=== PATIENT | male | born 1955 | race Caucasian/White ===

== ENCOUNTER 2017-01-20 09:00 | Outpatient (CLI) | payer BC ==
[~2017-01-20] VITALS: Ht 177.8 cm; Wt 85.7 kg
[~2017-01-20 09:00] MED LIST: AMOX-355 PO; BENA10TA2 PO; BNZ10T PO; DULO60CA58 PO; DULO60CA6 PO; GBPN300C; HYDR-34 PO; INSASP10V SQ; INSU100I10; INSU100I10 SQ; INSU100I14 SQ; INSU100V6 SQ; METF-380; METF-472 PO; METF500T8 PO; MUPI22OI TP; OXYC-109 PO; QUET150T PO; ROSU5TAB PO; TMSL.4C PO; TRZ100T
[2017-01-21] MEDS ORDERED: INSU300I SQ (10:21)
== END 2017-01-20 09:34 ==
LOC: PREOP 09:00
PROVIDERS: ATTEND Surgery
DX: Z01.818 Encounter for other preprocedural examination (principal); K92.1 Melena

== ENCOUNTER 2017-01-21 08:50 | Day surgery (SDC) | payer BC ==
[~2017-01-21] VITALS: Ht 177.8 cm; Wt 85.7 kg
[2017-01-21] MEDS ORDERED: NS IV 1000 ML 1,000 ML IV STA (09:00)
[2017-01-21] MEDS ORDERED: NALOXONE 0.4 MG/ML 1 ML (NARCAN) VIAL IVP PRN (09:00)
[2017-01-21] MEDS ORDERED: fentaNYL INJECTION 100 MCG/2 ML AMP IVP PRN (09:00)
[2017-01-21] MEDS ORDERED: FLUMAZENIL (ROMAZICON) 0.1 MG/ML 5 ML VIAL INJ PRN (09:00)
[2017-01-21] MEDS ORDERED: MIDAZOLAM 2 MG/2 ML (VERSED) VIAL IVP PRN (09:00)
[2017-01-21] MEDS ORDERED: NS IV 1000 ML 1,000 ML ONE (09:14)
[2017-01-21 10:00] VITALS: BP 130/93
[2017-01-21] MEDS ORDERED: INSU300I SQ (10:21)
[2017-01-21] MEDS ORDERED: MIDAZOLAM 2 MG/2 ML (VERSED) VIAL ONE (10:39)
[2017-01-21] MEDS ORDERED: proPOfol 200 MG/20 ML (DIPRIVAN) VIAL IV ONE (10:39)
--- NOTE | 2017-01-21 10:53 | Progress Note-Pre Operative ---
Pre-Operative Progress Note H&P Reviewed The H&P was reviewed, patient examined and no changes noted. Date H&P Reviewed: Jan 21, 2017 Time H&P Reviewed: 10:52 Pre-Operative Diagnosis: bloody stools, history of polyps ROSA KUMAR DO Jan 21, 2017 10:53 am
--- NOTE | 2017-01-21 11:20 | Discharge Inst-Simple/Standard ---
Discharge Inst-Standard Discharge Medications New, Converted or Re-Newed RX: Transmitted to Pharmacy Patient Instructions/Follow Up Plan of Care/Instructions/FU: Follow up with Dr. Leary in 3 weeks Apply diatizem Cream to anal area 3 x a day and after each bowel movement. dried yeast supervisor from [facility] tomorrow. Activity as Tolerated: Yes Discharge Diet: No Restrictions LENORA FARRIS APRN Jan 21, 2017 11:20
[2017-01-21 11:40] VITALS: BP 146/82
[2017-01-21 12:10] VITALS: BP 131/72
[2017-01-21 12:30] VITALS: BP 131/72
--- NOTE | 2017-01-21 12:45 | Progress Note-Post Operative ---
Post-Operative Progess Note Surgeon (s)/Home Care Manager Rn (s) Surgeon ROSA KUMAR DO Home Care Manager Rn: o Pre-Operative Diagnosis bloody stools, history of polyps Post-Operative Diagnosis anterior anal fissure Post-Op Procedure Note Date of Procedure: Jan 21, 2017 Name of Procedure Performed: colonoscopy Description of the Procedure: see note Findings of the Procedure see note Anesthesia Type per mda Estimated blood loss (mL): none Specimen(s) collected/removed none ROSA KUMAR DO Jan 21, 2017 12:45 pm
--- NOTE | 2017-01-22 10:33 | PROCEDURE REPORT ---
PROCEDURE PHYSICIAN: ROSA LEARY DATE OF PROCEDURE: 01/21/2017 PREOPERATIVE DIAGNOSES: 1. Bright red blood per rectum. 2. History of colon polyps. POSTOPERATIVE DIAGNOSIS: Anterior anal fissure. PROCEDURE: Colonoscopy. SURGEON: Dr. Leary. ANESTHESIA: Per MDA. ESTIMATED BLOOD LOSS: None. COMPLICATIONS: None. INDICATIONS: The patient is a 61-year-old male who presents with rectal bleeding. It is bright red in nature. He has history of colon polyps. He understands the risks and benefits of colonoscopy and wished to proceed. Consent was signed on the chart. PROCEDURE: The patient was taken to the endoscopy suite, placed in left lateral recumbent position. Timeout was performed. In the anterior position of the anus, a small but somewhat deep anterior anal fissure is present. No palpable polyps, masses were present. The scope was inserted in the rectum and advanced all way cecum with minimal difficulty. Prep was adequate with irrigation and suction. There were no polyps, masses or ulcers in the cecum, ascending, transverse, descending and sigmoid colon. The scope was continued be retracted back into the rectum where it was also retroflexed noting no other pathology. The scope was returned to its normal position slowly withdrawn until completely removed. The patient tolerated the procedure well without any complications and taken to the recovery room in stable condition. RECOMMENDATIONS: The patient will be started on diltiazem cream. He should be on stool softener and increased water intake and high-fiber diet. The patient will return to clinic in 3 weeks to discuss his symptoms and see how he is doing for reexamination. Job ID: [id number] Dictated Date: 01/21/2017 14:02:11 Furnace Hand Date: 01/22/2017 10:29:56 / anthony
--- OUTSIDE RECORDS SUMMARY | 2017-02-23 13:29 | XMS REPORT | Clinical Summary ---
Author Author User, [place] Organization [facility] Address Unknown Phone Unavailable Allergies, Adverse Reactions, Alerts Allergy Name Reaction Description Start Date Severity Status Provider EFFEXAMBER chapa Critical Active Sarah Tidwell Conditions or Problems Problem Name Problem Code Onset Date Status Entry Date Provider Comment Standard Description Annotate HYPERGLYCEMIA 790.6 Refinement Sarah Tidwell Other abnormal blood chemistry DIABETES MELLITUS, TYPE II, UNCONTROLLED, W/O COMPLICATIONS 250.02 Active Sarah Tidwell Diabetes mellitus without mention of complication, type II or unspecified type, uncontrolled ELEVATED BLOOD PRESSURE WITHOUT DIAGNOSIS OF HYPERTENSION 796.2 Resolved Sarah Tidwell Elevated blood pressure reading without diagnosis of hypertension POLYDIPSIA 783.5 Resolved Sarah Tidwell Polydipsia POLYURIA 788.42 Resolved Sarah Tidwell Polyuria NEPHROLITHIASIS 592.9 Active Sarah Tidwell Urinary calculus, unspecified BLURRED VISION 368.8 Resolved Sarah Tidwell Other specified visual disturbances COLONIC POLYPS, HX OF V12.72 Active Sarah Tidwell Personal history of colonic polyps SINUS CONGESTION 478.1 Resolved Sarah Tidwell Other diseases of nasal cavity and sinuses SINUSITIS, ACUTE 461.9 Resolved Sarah Tidwell Acute sinusitis, unspecified WEIGHT GAIN, ABNORMAL 783.1 Resolved Sarah Tidwell Abnormal weight gain INSOMNIA, CHRONIC 780.52 Active Sarah Tidwell Insomnia, unspecified FOLLICULITIS 704.8 Resolved Sarah Tidwell Other specified diseases of hair and hair follicles HYPERTRIGLYCERIDEMIA 272.1 Active Sarah Tidwell Pure hyperglyceridemia DISORDER, TONGUE NOS 529.9 Resolved Sarah Tidwell Unspecified condition of the tongue left tip of tongue FOLLICULITIS, CHRONIC 704.8 Resolved Sarah Tidwell Other specified diseases of hair and hair follicles neck RHINITIS 472.0 Resolved Sarah Tidwell Chronic rhinitis SINUSITIS, SPHENOIDAL, ACUTE 461.3 Resolved Sarah Tidwell Acute sphenoidal sinusitis HYPERTENSION 401.1 Active Sarah Tidwell Benign essential hypertension HYPERCHOLESTEROLEMIA 272.0 Active Sarah Tidwell Pure hypercholesterolemia 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 Active Sarah Tidwell Other testicular hypofunction NEUROPATHY, 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 Sarah Tidwell Unspecified idiopathic peripheral neuropathy UNSPECIFIED VITAMIN D DEFICIENCY 268.9 Active Sarah Tidwell Unspecified vitamin D deficiency RENAL INSUFFICIENCY 593.9 Active Sarah Tidwell Unspecified disorder of kidney and ureter BIPOLAR DISORDER UNSPECIFIED 296.80 Resolved Sarah Tidwell Bipolar disorder, unspecified HEALTH SCREENING V70.0 Resolved Sarah Tidwell Routine general medical examination at a health care facility BIPLR I D/O MOST RECENT EPIS MIX FULL REMISSION 296.66 Active Sarah Tidwell Bipolar I disorder, most recent episode ( or current) mixed, in full remission INGUINAL LYMPHADENOPATHY, LEFT 785.6 Resolved Sarah Tidwell Enlargement of lymph nodes OTHER SPECIFIED DISEASE OF HAIR&HAIR FOLLICLES 704.8 Resolved Sarah Tidwell Other specified diseases of hair and hair follicles Medication List Medication Instructions Start Date Stop Date Generic Name NDC Status Provider Patient Instruction NOVOLOG FLEXPEN 100 UNIT/ML SOPN 22 UNITS BEFORE MEALS INSULIN ASPART 69485099210 Active Yuliana Ag FLUTICASONE PROPIONATE 50 MCG/ACT SUSP 2 puffs each nostril daily FLUTICASONE PROPIONATE 11818033569 Active Sarah Tidwell HUMALOG KWIKPEN 100 UNIT/ML SOPN 22 units before meals INSULIN LISPRO (HUMAN) 80415186638 No Longer Active Sarah Tidwell LANTUS SOLOSTAR 100 UNIT/ML SOLN 60 units Injection every night INSULIN GLARGINE 10701537335 Active Yuliana Ag RETIN-A 0.01 % GEL Apply to affected area lower scalp every other day until resolved TRETINOIN 52938283697 No Longer Active Sarah Tidwell VITAMIN D3 5000 UNIT TABS 1 PO daily CHOLECALCIFEROL 56036705582 Active Sarah Tidwell BYDUREON 2 MG SUSR 1 injection once a week EXENATIDE 82344152804 Active Sarah Tidwell ANDRODERM 4 MG/24HR PT24 apply once daily TESTOSTERONE 88810647392 Active Breonna Squires REQUIP 1 MG TABS 1 po at HS ROPINIROLE HCL 61540159416 No Longer Active Sarah Tidwell ALPRAZOLAM 0.25 MG TABS 1 po q 4-6 hrs prn ALPRAZOLAM 41501876622 No Longer Active Sarah Tidwell GABAPENTIN 300 MG CAPS 1 in morning, 1 at lunch, and 5 PO QHS GABAPENTIN 16042004858 Active Sarah Tidwell FISH OIL 1000 MG CAPS 2 po daily OMEGA-3 FATTY ACIDS 36263351650 Active Sarah Tanesha Tidwell SEROQUEL XR 150 MG [id number] 1-2 tabs po at 5pm QUETIAPINE FUMARATE 48698448603 Active Sarah Tanesha Tidwell TRAZODONE HCL 100 MG TABS 1 PO QHS TRAZODONE HCL 60240801351 No Longer Active Sarah Tanesha Tidwell CYMBALTA 60 MG CPEP 2 PO daily DULOXETINE HCL 49607586839 Active Sarahmilana Tidwell RESTORIL 15 MG CAP 1 PO QHS prn TEMAZEPAM 42774667784 No Longer Active Sarahmilana Tidwell CYMBALTA 30 MG CPEP 1 PO daily for 1 week then change to 60mg tablet once daily DULOXETINE HCL 44181274212 No Longer Active Sarah Tidwell MULTIVITAMINS TABS 1 PO QD MULTIPLE VITAMIN 87083893327 Active Sarahmilana Tidwell ZOLOFT 100 MG TABS 1 PO daily SERTRALINE HCL 36331689060 No Longer Active Sarah Tidwell LOTENSIN 10 MG TAB 1 PO daily BENAZEPRIL HCL 56914100437 Active Sarah Tidwell EFFEXOR XR 75 MG CP24 1 PO daily VENLAFAXINE HCL 73165059025 No Longer Active Sarah Tidwell PEN NEEDLES 03/04" 31G X 8 MM MISC as directed with injection twice daily. DX: Diabetes INSULIN PEN NEEDLE 19955597280 Active Sarahmilana Tidwell AUGMENTIN 500-125 MG TAB 1 PO BID AMOXICILLIN-POT CLAVULANATE 85742044543 No Longer Active Sarah SIMS'S NASAL SPRAY (DEXAMETHASONE, GENTAMICIN, SALINE) 2 puffs each nostril TID for [address] WILLS NASAL SPRAY ( DEXAMETHASONE, GENTAMICIN, SALINE) No Longer Active Sarah Tidwell ALPRAZOLAM 0.5 MG TABS 1 PO QHS ALPRAZOLAM 97420430364 No Longer Active Sarah Tanesha Tidwell AMBIEN CR 12.5 MG TBCR 1 po q HS ZOLPIDEM TARTRATE 45385791580 No Longer Active Sarahmilana Tidwell BYETTA 10 MCG PEN 10 MCG/0.04ML SOLN 1 injection BID EXENATIDE 21969770703 No Longer Active Sarahmilana Tidwell ONETOUCH ULTRA TEST STRP Check BS TID DX: DIABETES GLUCOSE BLOOD 27709588544 Active Nicole Arias EFFEXOR XR 37.5 MG CP24 1 PO daily for 7 days VENLAFAXINE HCL 01471259971 No Longer Active Sarah Tidwell ZOLOFT 100 MG TABS 1 PO daily SERTRALINE HCL 08168284557 No Longer Active Sarah Tidwell OMACOR 1 GM CAPS 3 PO daily for high triglycerides UVONF-7-RNIO ETHYL ESTERS 67896668578 No Longer Active Sarah Tidwell AMARYL 4 MG TABS 1 PO daily GLIMEPIRIDE 55278360297 No Longer Active Sarah WILLS NASAL SPRAY (DEXAMETHASONE, GENTAMICIN, SALINE) 2 puffs each nostril TID for [address] WILLS NASAL SPRAY ( DEXAMETHASONE, GENTAMICIN, SALINE) No Longer Active Sarah Tidwell AUGMENTIN 875-125 MG TAB 1 PO BID AMOXICILLIN-POT CLAVULANATE 65048927864 No Longer Active Sarah Tidwell AVANDIA 2 MG TABS 1 PO QD for diabetes ROSIGLITAZONE MALEATE 47680326572 No Longer Active Sarah Tidwell MIRA 180 MG TABS 1 PO QD for allergies FEXOFENADINE HCL Active Sarahmilana Tidwell LUNESTA 3 MG TABS 1 po prn ESZOPICLONE 03709164078 No Longer Active Yuliana Ag GLUCOPHAGE XR 500 MG TB24 2 po daily METFORMIN HCL 63883895102 Active Sarah Tidwell CRESTOR 5 MG TABS 1 PO daily for cholesterol ROSUVASTATIN CALCIUM 03724263569 Active Sarah Tidwell LUNESTA 2 MG 1 po QHS LUNESTA 2 MG No Longer Active Sarahmilana Tidwell CORTISPORIN 0.5-0.5-47604 CREA apply to back of neck BID for 7d [id number] 55553374441 No Longer Active Sarah Tidwell KEFLEX 500 MG CAP 1 Po QID for 7 days CEPHALEXIN 87905103131 No Longer Active Sarah Tidwell KEFLEX 500 MG CAPS 1 PO QID CEPHALEXIN 41535603366 No Longer Active Sarah Tidwell CORTISPORIN 0.5-0.5-35074 CREA Apply to affected area posterior neck TID 2004 [id number] 64353484647 No Longer Active Sarah Tidwell AMOXIL 500 MG TABS BID for 7 days AMOXICILLIN 55867779231 No Longer Active Sarah Tidwell ASPIRIN 81 MG CHEW TAB 1 PO QD ASPIRIN 81704568069 Active Sarah Tidwell ZYRTEC-D 5-120 MG TB12 1 po q 12 hrs. CETIRIZINE- PSEUDOEPHEDRINE 14262357841 No Longer Active Sarah Tidwell Immunizations Vaccine Administration Date Value Standard Description Influenza vaccine given Done influenza virus vaccine, unspecified formulation Influenza vaccine given done influenza virus vaccine, unspecified formulation Vital Signs Date Name Value Unit Range Description blood pressure, diastolic - 8462-4 75 mm[Hg] BP nuñez blood pressure, systolic - 8480-6 130 mm[Hg] BP sys pulse rate E&M - 8867-4 66 /min Heart rate respiratory rate E&M - 9279-1 14 /min Resp rate weight E&M - 3141-9 195 [lb_av] Weight Measured blood pressure, diastolic - 8462-4 80 mm[Hg] BP nuñez blood pressure, systolic - 8480-6 130 mm[Hg] BP sys pulse rate E&M - 8867-4 78 /min Heart rate respiratory rate E&M - 9279-1 14 /min Resp rate weight E&M - 3141-9 191 [lb_av] Weight Measured blood pressure, diastolic - 8462-4 65 mm[Hg] BP nuñez blood pressure, systolic - 8480-6 130 mm[Hg] BP sys pulse rate E&M - 8867-4 60 /min Heart rate respiratory rate E&M - 9279-1 14 /min Resp rate weight E&M - 3141-9 190 [lb_av] Weight Measured Diagnostic Results Date Name Value Unit Range Description Clinical Lists Update: CBC,CMP,FLP,TSH,HGA1C,MICROALBUMIN - Chemistry Estimated Glomerular Filtration Rate (calc) 80 mL/min/1.73m2 glucose, plasma fasting 210 mg/dL albumin, serum 4.0 g/dL alkaline phosphatase, serum 72 U/L urea nitrogen, blood 17 mg/dL calcium, serum 9.1 mg/dL chloride, serum 103 mmol/L cholesterol, serum 135 mg/dL cholesterol/HDL ratio, serum, percent 4.4 anion gap, serum 9 sodium, serum 134 mmol/L triglyceride, serum, fasting 158 mg/dL bilirubin, serum, total 0.5 mg/dL alanine aminotransferase (SGPT), serum 34 U/L aspartate aminotransferase (SGOT), serum 19 U/L protein, total, serum 6.2 g/dL potassium, serum 4.7 mmol/L LDL cholesterol, serum 72 mg/dL thyroid stimulating hormone, serum 1.67 u[iU]/mL hemoglobin A1C, blood, as % of total hemoglobin 9.3 % HDL cholesterol, serum 31.0 mg/dL creatinine, serum 1.0 mg/dL carbon dioxide, venous blood 27.0 mmol/L Clinical Lists Update: CBC,CMP,FLP,TSH,HGA1C,MICROALBUMIN - Hematology leukocyte count, blood 6.9 10*3/mm3 mean corpuscular volume, RBC 92 fL red blood cell distribution width 12.1 % hemoglobin, blood 14.2 g/dL platelet count 171 10*3/mm3 erythrocyte (RBC) count 4.56 10*6/mm3 hematocrit, blood 41.9 % Clinical Lists Update: CBC,CMP,FLP,TSH,HGA1C,MICROALBUMIN - Urinalysis microalbumin, urine, semiquantitative 0.3 mg/dL Clinical Lists Update: CMP,Chol,Trig,HgA1c - Chemistry alkaline phosphatase, serum 78 U/L albumin, serum 4.1 g/dL calcium, serum 9.4 mg/dL chloride, serum 104 mmol/L cholesterol, serum 109 mg/dL carbon dioxide, venous blood 30.0 mmol/L creatinine, serum 1.4 mg/dL hemoglobin A1C, blood, as % of total hemoglobin 8.6 % potassium, serum 4.4 mmol/L protein, total, serum 6.5 g/dL aspartate aminotransferase (SGOT), serum 19 U/L alanine aminotransferase (SGPT), serum 33 U/L bilirubin, serum, total 0.7 mg/dL triglyceride, serum, fasting 173 mg/dL sodium, serum 137 mmol/L anion gap, serum 7 glucose, plasma fasting 147 mg/dL Estimated Glomerular Filtration Rate (calc) 55 mL/min/1.73m2 urea nitrogen, blood 17 mg/dL Clinical Lists Update: CMP,FLP,HgA1c - Chemistry alkaline phosphatase, serum 75 U/L albumin, serum 4.2 g/dL urea nitrogen, blood 16 mg/dL calcium, serum 9.7 mg/dL chloride, serum 101 mmol/L cholesterol, serum 136 mg/dL carbon dioxide, venous blood 31.0 mmol/L creatinine, serum 1.3 mg/dL HDL cholesterol, serum 30.0 mg/dL hemoglobin A1C, blood, as % of total hemoglobin 9.3 % LDL cholesterol, serum 78 mg/dL potassium, serum 4.7 mmol/L protein, total, serum 6.6 g/dL aspartate aminotransferase (SGOT), serum 29 U/L alanine aminotransferase (SGPT), serum 60 U/L bilirubin, serum, total 0.7 mg/dL triglyceride, serum, fasting 141 mg/dL sodium, serum 133 mmol/L anion gap, serum 6 cholesterol/HDL ratio, serum, percent 4.5 Estimated Glomerular Filtration Rate (calc) 63 mL/min/1.73m2 glucose, plasma fasting 121 mg/dL Encounters Code Encounter Date Provider Facility CPT-36799 Ofc Vst, Est Level IV 17:08:31 CDT Sarah Tanesha Tidwell Sarah S Tidwell, DO, FACP CPT-16109 Ofc Vst, Est Level IV 20:26:15 CDT Sarahmilana Wiseman Tidwell, DO, FACP CPT-63015 Ofc Vst, Est Level IV 12:57:00 CDT Sarah Wiseman Tidwell, DO, FACP CPT-36710 Ofc Vst, Est Level IV 16:50:31 CDT Sarahmilana [facility] CPT-18359 Ofc Vst, Est Level III 16:42:31 SHOES SALESPERSON Sarah Wiseman Diann, DO, FACP CPT-86371 Ofc Vst, Est Level IV 21:22:46 SHOES SALESPERSON Sarah Wiseman Diann, DO, FACP CPT-50153 Ofc Vst, Est Level III 21:17:37 CDT Sarah Tanesha Wiseman Diann, DO, FACP CPT-30714 Ofc Vst, Est Level III 13:46:44 CDT Sarahmilana Wiseman Diann, DO, FACP CPT-25357 Ofc Vst, Est Level III 15:31:19 CDT Sarah Wiseman Tidwell, DO, FACP CPT-35277 Ofc Vst, Est Level III 15:42:13 SHOES SALESPERSON Sarah Wiseman Tidwell, DO, FACP CPT-93382 Ofc Vst, Est Level IV 11:22:49 CDT Sarah Wiseman Tidwell, DO, FACP CPT-22257 Ofc Vst, Est Level IV 11:33:36 CDT Sarah Wiseman Tidwell, DO, FACP CPT-58376 Ofc Vst, Est Level IV 11:19:42 SHOES SALESPERSON Sarah Wiseman Diann, DO, FACP CPT-99806 Ofc Vst, Est Level IV 10:56:54 CDT Sarahmilana Wiseman Tidwell, DO, FACP CPT-04099 Ofc Vst, Est Level IV 10:26:50 CDT Sarah Tanesha Wiseman Tidwell, DO, FACP CPT-84218 Ofc Vst, Est Level IV 09:48:46 SHOES SALESPERSON Sarah Tanesha Wiseman Tidwell, DO, FACP CPT-71958 Ofc Vst, Est Level IV 10:10:00 SHOES SALESPERSON Sarahmilana Smith S Tidwell, DO, FACP CPT-46248 Ofc Vst, Est Level IV 09:52:11 CDT Sarah Tanesha Smith S Tidwell, DO, FACP CPT-08877 Ofc Vst, Est Level IV 09:34:58 CDT Sarah Tanesha Wiseman Diann, DO, FACP CPT-66535 Ofc Vst, Est Level III 17:03:52 SHOES SALESPERSON Sarah Wiseman Tidwell, DO, FACP CPT-93092 Ofc Vst, Est Level IV 09:28:00 SHOES SALESPERSON Sarah Smith S Tidwell, DO, FACP CPT-09780 Ofc Vst, Est Level V 11:08:12 CDT Sarahmilana Wiseman Diann, DO, FACP CPT-95686 Ofc Vst, Est Level IV 12:44:14 CDT Sarah Tanesha Wiseman Tidwell, DO, FACP CPT-34145 Ofc Vst, Est Level IV 09:43:11 CDT Sarah Tanesha Smith S Tidwell, DO, FACP CPT-37408 Ofc Vst, Est Level III 10:32:15 CDT Sarah Tanesha Smith S Tidwell, DO, FACP CPT-11192 Ofc Vst, Est Level IV 14:52:57 CDT Sarah Wiseman Tidwell, DO, FACP CPT-51727 Ofc Vst, Est Level IV 12:04:03 CDT Sarah Wiseman Tidwell, DO, FACP CPT-16700 Ofc Vst, Est Level V 11:59:56 CDT Sarah Tanesha Wiseman Tidwell, DO, FACP CPT-72969 Ofc Vst, Est Level IV 17:11:53 CDT Sarah Tanesha Wiseman Tidwell, DO, FACP CPT-83735 Ofc Vst, Est Level IV 16:57:36 SHOES SALESPERSON Sarah Wiseman Tidwell, DO, FACP CPT-65469 Ofc Vst, Est Level V 11:17:45 SHOES SALESPERSON Sarah Wiseman Tidwell, DO, FACP CPT-49257 Ofc Vst, Est Level IV 09:27:52 SHOES SALESPERSON Sarah Wiseman Tidwell, DO, FACP CPT-83670 Ofc Vst, Est Level IV 11:10:52 CDT Sarah Wiseman Tidwell, DO, FACP CPT-46366 Ofc Vst, Est Level IV 15:46:30 CDT Sarah Wiseman Tidwell, DO, FACP CPT-46415 Ofc Vst, Est Level IV 16:18:20 CDT Sarah Tanesha Wiseman Tidwell, DO, FACP CPT-82743 Ofc Vst, Est Level V 17:06:31 SHOES SALESPERSON Sarah Wiseman Tidwell, DO, FACP CPT-60711 Ofc Vst, Est Level IV 17:58:03 CDT Sarahmilana Wiseman Tidwell, DO, FACP CPT-58011 Ofc Vst, Est Level IV 09:25:46 CDT Sarahmilana Tidwell [facility] CPT-17931 Ofc Vst, Est Level IV 13:54:17 SHOES SALESPERSON Sarah Tidwell [facility] CPT-69590 Ofc Vst, Est Level III 19:28:13 SHOES SALESPERSON Sarah Tidwell [facility] CPT-40474 Ofc Vst, Est Level IV 15:50:57 SHOES SALESPERSON Sarah Tidwell [facility] CPT-24321 Ofc Vst, Est Level IV 13:51:16 SHOES SALESPERSON Sarah Tidwell [facility] CPT-50737 Ofc Vst, Est Level IV 09:58:27 CDT Sarah Tanesha Tidwell [facility] CPT-23191 Ofc Vst, Est Level IV 09:33:18 SHOES SALESPERSON Sarah Tidwell [facility] CPT-98202 Ofc Vst, Est Level III 09:35:19 SHOES SALESPERSON Sarah Tidwell [facility] CPT-22180 Ofc Vst, Est Level IV 09:54:59 SHOES SALESPERSON Sarah Tidwell [facility] CPT-43862 Ofc Vst, Est Level IV 09:41:01 CDT Sarahmilana Tidwell [facility] CPT-47231 Ofc Vst, Est Level II 09:54:39 CDT Sarah Tidwell [facility] CPT-73490 Ofc Vst, Est Level IV 17:42:28 CDT Sarah Tidwell [facility] CPT-52502 Ofc Vst, Est Level III 17:52:28 SHOES SALESPERSON Sarah Tidwell [facility] CPT-04963 Ofc Vst, Est Level III 18:11:29 SHOES SALESPERSON Sarah Tidwell [facility] CPT-52712 Ofc Vst, Est Level IV 18:14:34 CDT Sarah Tidwell [facility] CPT-80946 Ofc Vst, Est Level IV 17:50:40 CDT Sarah Tidwell [facility] CPT-60991 Ofc Vst, Est Level III 12:36:34 CDT Sarah Tidwell [facility] CPT-96705 Ofc Vst, Est Level III 13:13:59 CDT Sarah Tidwell [facility] CPT-83286 Ofc Vst, New Level III 15:18:01 CDT Sarah Tidwell [facility] Procedures Code Procedure Name Date Entry Date Standard Description CPT-94609 Preventive, Est, (40-64) 12:36:08 CDT CPT-85695 Handling of specimen from office to lab 13:51:16 SHOES SALESPERSON
--- OUTSIDE RECORDS SUMMARY | 2017-02-23 13:30 | XMS REPORT | Continuity of Care Document ---
Author Author [facility] Organization [facility] Address Unknown Phone Unavailable Allergies Active Description Code Type Severity Reaction Onset Reported/Identified Relationship to Patient Clinical Status Yes NKANo Known Allergies NKA Miscellaneous Allergy Mild N/A 07/16/2009 Medications Problems Date Dx Coded Attending Type Code Diagnosis Diagnosed By 08/18/2014 ROSA KUMAR DO Ot 250.00 08/18/2014 ROSA KUMAR DO Ot 706.2 07/06/2015 ROSA KUMAR DO Ot 706.2 07/06/2015 ROSA KUMAR DO Ot V72.84 07/06/2015 ROSA KUMAR DO Ot V74.8 07/07/2015 TIM BATISTA DO Ot 041.12 METHICILLIN RESISTANT STAPHYLOCOCCUS AUR 07/07/2015 TIM BATISTA DO Ot 250.00 DIAB CHAPARRO WO COMPL, TYPE II OR UNSPEC TY 07/07/2015 TIM BATISTA DO Ot 272.4 HYPERLIPIDEMIA NEC/NOS 07/07/2015 TIM BATISTA DO Ot 401.9 HYPERTENSION NOS 07/07/2015 LESTER TAM TIM Ot 682.6 CELLULITIS OF LEG 07/07/2015 RYLEE BATISTA DOI Ot 704.8 HAIR DISEASES NEC 07/07/2015 TIM BATISTA DO Ot V58.67 LONG-TERM (CURRENT) USE OF INSULIN 01/21/2017 ROSA KUMAR DO Ot K60.2 ANAL FISSURE, UNSPECIFIED 01/21/2017 ROSA KUMAR DO Ot Z86.010 PERSONAL HISTORY OF COLONIC POLYPS 01/21/2017 ROSA KUMAR DO Ot K92.1 MELENA 01/21/2017 ROSA KUMAR DO Ot Z01.818 ENCOUNTER FOR OTHER PREPROCEDURAL EXAMIN 01/22/2017 ROSA KUMAR DO Ot K60.2 ANAL FISSURE, UNSPECIFIED 01/22/2017 ROSA KUMAR DO Ot Z86.010 PERSONAL HISTORY OF COLONIC POLYPS 01/26/2017 ROSA KUMAR DO Ot K92.1 MELENA 01/26/2017 ROSA KUMAR DO Ot Z01.818 ENCOUNTER FOR OTHER PREPROCEDURAL EXAMIN 01/30/2017 ROSA KUMAR DO Ot K60.2 ANAL FISSURE, UNSPECIFIED 01/30/2017 ROSA KUMAR DO Ot Z86.010 PERSONAL HISTORY OF COLONIC POLYPS Procedures Results Test Result Range Capillary blood glucose measurement by glucometer (mass/volume) - 01/21/17 09: 29 Capillary blood glucose measurement by glucometer (mass/volume) 165 mg/dL 70-110 Encounters ACCT No. Visit Date/Time Discharge Status Pt. Type Provider Facility Loc./Unit Complaint [id number] 01/21/2017 08:50:00 2016 12:30:00 DIS Outpatient ROSA KUMAR DO [facility] ENDO BLOOD IN STOOL [id number] 01/20/2017 09:00:00 2016 09:34:00 DIS Outpatient ROSA KUMAR DO [facility] PREOP BLOOD IN STOOLS [id number] 07/06/2015 15:12:00 2014 13:25:00 DIS Inpatient TIM BATISTA DO [facility] SURGICAL RT LEG CELLULITES MRSA [id number] 08/18/2014 10:30:00 2013 14:20:00 DIS Outpatient ROSA KUMAR DO [facility] SDC [id number] 08/17/2014 09:56:00 2013 23:59:59 CLS Outpatient ROSA KUMAR DO [facility] PREOP
--- OUTSIDE RECORDS SUMMARY | 2017-02-23 13:30 | XMS REPORT | Clinical Summary ---
Author Author moiz winston Organization [facility] [place] [address] Phone Unavailable Allergies, Adverse Reactions, Alerts Allergy Name Reaction Description Start Date Severity Status Provider ALISHA chapa Critical Active Sarah Tidwell Conditions or Problems Problem Name Problem Code Onset Date Status Entry Date Provider Comment Standard Description Annotate DIABETES MELLITUS, TYPE II, UNCONTROLLED, W/O COMPLICATIONS 250.02 Active Sarah Tidwell DIABETES MELLITUS WITHOUT MENTION OF COMPLICATION, TYPE II OR UNSPECIFIED TYPE, UNCONTROLLED NEPHROLITHIASIS 592.9 Active Sarah Tidwell UNSPECIFIED URINARY CALCULUS COLONIC POLYPS, HX OF V12.72 Active Sarah Tidwell PERSONAL HISTORY OF COLONIC POLYPS INSOMNIA, CHRONIC 780.52 Active Sarah Tidwell INSOMNIA, UNSPECIFIED HYPERTRIGLYCERIDEMIA 272.1 Active Sarah Tidwell PURE HYPERGLYCERIDEMIA HYPERTENSION 401.1 Active Sarah Tidwell ESSENTIAL HYPERTENSION, BENIGN HYPERCHOLESTEROLEMIA 272.0 Active Sarah Tidwell PURE HYPERCHOLESTEROLEMIA 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 Active Sarah Tidwell OTHER TESTICULAR HYPOFUNCTION NEUROPATHY, 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 Sarah Tidwell UNSPECIFIED HEREDITARY AND IDIOPATHIC PERIPHERAL NEUROPATHY UNSPECIFIED VITAMIN D DEFICIENCY 268.9 Active Sarah Tidwell RENAL INSUFFICIENCY 593.9 Active Sarah Tidwell 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 296.66 Active Sarah Tidwell BIPOLAR I DISORDER, MOST RECENT EPISODE ( OR CURRENT) MIXED, IN FULL 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 704.8 Active 2013 Sarah Tidwell OTHER SPECIFIED DISEASE OF HAIR AND HAIR FOLLICLES Medication List Medication Instructions Start Date Stop Date Generic Name NDC Status Provider Patient Instruction ASPIRIN 81 MG CHEW TAB 1 PO QD ASPIRIN 37520452804 Active Sarah Tidwell CRESTOR 5 MG TABS 1 PO daily for cholesterol ROSUVASTATIN CALCIUM 97248893910 Active Yuliana Ag GLUCOPHAGE XR 500 MG TB24 2 po daily METFORMIN HCL 18160154858 Active Yuliana Ag MIRA 180 MG TABS 1 PO QD for allergies FEXOFENADINE HCL Active Sarah Tidwell FLONASE 50 MCG/DOSE INHALANT 1 puff each nostril BID FLONASE 50 MCG/DOSE INHALANT 29487843003 Active Sarah Tidwell ONETOUCH ULTRA TEST STRP Check BS TID DX: DIABETES GLUCOSE BLOOD 13668078129 Active Nicole Arias PEN NEEDLES 03/04" 31G X 8 MM MISC as directed with injection twice daily. DX: Diabetes INSULIN PEN NEEDLE 85260932239 Active Yuliana Ag LOTENSIN 10 MG TAB 1 PO daily BENAZEPRIL HCL 94121184423 Active Yuliana Ag MULTIVITAMINS TABS 1 PO QD MULTIPLE VITAMIN 19121053388 Active Sarah Tidwell CYMBALTA 60 MG CPEP 2 PO daily DULOXETINE HCL 27471971442 Active Breonna Squires SEROQUEL XR 150 MG [id number] 1-2 tabs po at 5pm QUETIAPINE FUMARATE 34679329326 Active Yuliana Ag FISH OIL 1000 MG CAPS 2 po daily OMEGA-3 FATTY ACIDS 78560557379 Active Sarah Tidwell GABAPENTIN 300 MG CAPS 1 in morning, 1 at lunch, and 5 PO QHS GABAPENTIN 82373072619 Active Sarah Tanesha Tidwell ANDRODERM 4 MG/24HR PT24 apply once daily TESTOSTERONE 10015874782 Active Breonna TA SOLOSTAR 100 UNIT/ML SOLN 55 units Injection every night INSULIN GLARGINE 52396228157 Active Yuliana Ag BYDUREON 2 MG SUSR 1 injection once a week EXENATIDE 77047005218 Active Sarahmilana Tidwell VITAMIN D3 5000 UNIT TABS 1 PO daily CHOLECALCIFEROL 47224671644 Active Sarah Tanesha Tidwell HUMALOG PEN 100 UNIT/ML SOLN 20 units before all meals INSULIN LISPRO (HUMAN) Active Sarah Tidwell Immunizations Vaccine Administration Date Value Standard Description Influenza vaccine done influenza virus vaccine, unspecified formulation Vital Signs Date Name Value Unit Range Description blood pressure, diastolic 65 mm[Hg] BP nuñez blood pressure, systolic 130 mm[Hg] BP sys pulse rate E&M 60 /min Heart rate respiratory rate E&M 14 /min Resp rate weight E&M 190 [lb_av] Weight Measured blood pressure, diastolic 86 mm[Hg] BP nuñez blood pressure, systolic 130 mm[Hg] BP sys pulse rate E&M 78 /min Heart rate respiratory rate E&M 14 /min Resp rate blood pressure, diastolic 64 mm[Hg] BP nuñez blood pressure, systolic 120 mm[Hg] BP sys pulse rate E&M 66 /min Heart rate respiratory rate E&M 14 /min Resp rate blood pressure, diastolic 66 mm[Hg] BP nuñez blood pressure, systolic 122 mm[Hg] BP sys pulse rate E&M 80 /min Heart rate respiratory rate E&M 14 /min Resp rate Diagnostic Results Date Name Value Unit Range Description Clinical Lists Update: CBC,CMP,FLP,HgA1c - Chemistry Estimated Glomerular Filtration Rate (calc) 68 mL/min/1.73m2 glucose, plasma fasting 173 mg/dL albumin, serum 4.1 g/dL alkaline phosphatase, serum 64 U/L urea nitrogen, blood 18 mg/dL calcium, serum 9.3 mg/dL chloride, serum 107 mmol/L cholesterol, serum 108 mg/dL cholesterol/HDL ratio, serum 4.3 anion gap, serum 8 sodium, serum 139 mmol/L triglyceride, serum, fasting 262 mg/dL bilirubin, serum, total 0.6 mg/dL alanine aminotransferase (SGPT), serum 40 U/L aspartate aminotransferase (SGOT), serum 23 U/L protein, total, serum 6.2 g/dL potassium, serum 3.9 mmol/L LDL cholesterol, serum 31 mg/dL hemoglobin A1C, blood, as % of total hemoglobin 8.3 % HDL cholesterol, serum 25.0 mg/dL creatinine, serum 1.2 mg/dL carbon dioxide, venous blood 28.0 mmol/L Clinical Lists Update: CBC,CMP,FLP,HgA1c - Hematology erythrocyte (RBC) count 5.10 10*6/mm3 leukocyte count, blood 6.8 10*3/mm3 mean corpuscular volume, RBC 94 fL red blood cell distribution width 13.5 % hemoglobin, blood 15.0 g/dL platelet count 193 10*3/mm3 hematocrit, blood 48 % Clinical Lists Update: CMP, Chol, Trigs, HbA1C, TSH, Micro - Chemistry glucose, plasma fasting 159 mg/dL thyroid stimulating hormone, serum 1.22 u[iU]/mL protein, total, serum 6.2 g/dL alkaline phosphatase, serum 65 U/L sodium, serum 140 mmol/L urea nitrogen, blood 18 mg/dL aspartate aminotransferase (SGOT), serum 16 U/L calcium, serum 9.4 mg/dL albumin, serum 4.0 g/dL chloride, serum 105 mmol/L alanine aminotransferase (SGPT), serum 22 U/L cholesterol, serum 112 mg/dL anion gap, serum 8 carbon dioxide, venous blood 31.0 mmol/L bilirubin, serum, total 0.6 mg/dL creatinine, serum 1.0 mg/dL Estimated Glomerular Filtration Rate (calc) 79 mL/min/1.73m2 hemoglobin A1C, blood, as % of total hemoglobin 8.5 % potassium, serum 4.2 mmol/L triglyceride, serum, fasting 165 mg/dL Clinical Lists Update: CMP, Chol, Trigs, HbA1C, TSH, Micro - Urinalysis microalbumin, urine, semiquantitative 0.3 mg/dL Clinical Lists Update: CMP,Chol,Trig,HgA1c - Chemistry albumin, serum 4.1 g/dL alkaline phosphatase, serum 78 U/L urea nitrogen, blood 17 mg/dL calcium, serum 9.4 mg/dL chloride, serum 104 [...] Estimated Glomerular Filtration Rate (calc) 55 mL/min/1.73m2 Clinical Lists Update: CMP,FLP,HgA1c - Chemistry Estimated Glomerular Filtration Rate (calc) 64 mL/min/1.73m2 glucose, plasma fasting 233 mg/dL cholesterol/HDL ratio, serum 4.4 anion gap, serum 10 sodium, serum 136 mmol/L triglyceride, serum, fasting 130 mg/dL bilirubin, serum, total 0.8 mg/dL alanine aminotransferase (SGPT), serum 34 U/L aspartate aminotransferase (SGOT), serum 22 U/L protein, total, serum 6.4 g/dL potassium, serum 4.2 mmol/L LDL cholesterol, serum 62 mg/dL hemoglobin A1C, blood, as % of total hemoglobin 9.0 % HDL cholesterol, serum 26.0 mg/dL creatinine, serum 1.2 mg/dL carbon dioxide, venous blood 28.0 mmol/L cholesterol, serum 114 mg/dL chloride, serum 102 mmol/L calcium, serum 9.1 mg/dL urea nitrogen, blood 15 mg/dL alkaline phosphatase, serum 69 U/L albumin, serum 4.0 g/dL
--- OUTSIDE RECORDS SUMMARY | 2017-02-23 13:31 | XMS REPORT | Clinical Summary ---
Author Author User, Metaset Organization [facility] [place] Address Unknown Phone Unavailable Allergies, Adverse Reactions, [...] Generic Name NDC Status Provider Patient Instruction FLUTICASONE PROPIONATE 50 MCG/ACT SUSP 2 puffs each nostril daily FLUTICASONE PROPIONATE 33726948687 Active Sarah Tidwell HUMALOG KWIKPEN 100 UNIT/ML SOPN 22 units before meals INSULIN LISPRO (HUMAN) 18497852060 Active Sarah Tidwell LANTUS SOLOSTAR 100 UNIT/ML SOLN 60 units Injection every night INSULIN GLARGINE 21955484764 Active Sarah Tidwell RETIN-A 0.01 % GEL Apply to affected area lower scalp every other day until resolved TRETINOIN 71081098496 No Longer Active Sarah Tidwell VITAMIN D3 5000 UNIT TABS 1 PO daily CHOLECALCIFEROL 26939059181 Active Sarah Tidwell BYDUREON 2 MG SUSR 1 injection once a week EXENATIDE 76367837827 Active Sarah Tidwell ANDRODERM 4 MG/24HR PT24 apply once daily TESTOSTERONE 42098443184 Active Breonna Squires REQUIP 1 MG TABS 1 po at HS ROPINIROLE HCL 22207816897 No Longer Active Sarah Tidwell ALPRAZOLAM 0.25 MG TABS 1 po q 4-6 hrs prn ALPRAZOLAM 41060008676 No Longer Active Sarah Tidwell GABAPENTIN 300 MG CAPS 1 in morning, 1 at lunch, and 5 PO QHS GABAPENTIN 38504638149 Active Sarah Tidwell FISH OIL 1000 MG CAPS 2 po daily OMEGA-3 FATTY ACIDS 71570927866 Active Sarah Tidwell SEROQUEL XR 150 MG [id number] 1-2 tabs po at 5pm QUETIAPINE FUMARATE 27523190067 Active Sarah Tidwell TRAZODONE HCL 100 MG TABS 1 PO QHS TRAZODONE HCL 78404594408 No Longer Active Sarah Tidwell CYMBALTA 60 MG CPEP 2 PO daily DULOXETINE HCL 98451708322 Active Yuliana Ag RESTORIL 15 MG CAP 1 PO QHS prn TEMAZEPAM 43057012894 No Longer Active Sarah Tidwell CYMBALTA 30 MG CPEP 1 PO daily for 1 week then change to 60mg tablet once daily DULOXETINE HCL 47993938495 No Longer Active Sarah Tidwell MULTIVITAMINS TABS 1 PO QD MULTIPLE VITAMIN 41777840630 Active Sarah Tidwell ZOLOFT 100 MG TABS 1 PO daily SERTRALINE HCL 98936054967 No Longer Active Sarahmilana Tidwell LOTENSIN 10 MG TAB 1 PO daily BENAZEPRIL HCL 80885889499 Active Yuliana Ag EFFEXOR XR 75 MG CP24 1 PO daily VENLAFAXINE HCL 58987257552 No Longer Active Sarah Tidwell PEN NEEDLES /16" 31G X 8 MM MISC as directed with injection twice daily. DX: Diabetes INSULIN PEN NEEDLE 72749635444 Active Sarah Tidwell AUGMENTIN 500-125 MG TAB 1 PO BID AMOXICILLIN-POT CLAVULANATE 19116886300 No Longer Active Sarah SIMS'S NASAL SPRAY (DEXAMETHASONE, GENTAMICIN, SALINE) 2 puffs each nostril TID for [address] WILLS NASAL SPRAY ( DEXAMETHASONE, GENTAMICIN, SALINE) No Longer Active Sarah Tidwell ALPRAZOLAM 0.5 MG TABS 1 PO QHS ALPRAZOLAM 35868590471 No Longer Active Sarahmilana Tidwell AMBIEN CR 12.5 MG TBCR 1 po q HS ZOLPIDEM TARTRATE 78472953691 No Longer Active Sarah Tidwell BYETTA 10 MCG PEN 10 MCG/0.04ML SOLN 1 injection BID EXENATIDE 49886950424 No Longer Active Sarah Tidwell ONETOUCH ULTRA TEST STRP Check BS TID DX: DIABETES GLUCOSE BLOOD 44276905117 Active Nicole Arias EFFEXOR XR 37.5 MG CP24 1 PO daily for 7 days VENLAFAXINE HCL 20196385476 No Longer Active Sarah Tidwell ZOLOFT 100 MG TABS 1 PO daily SERTRALINE HCL 14173821026 No Longer Active Sarah Tidwell OMACOR 1 GM CAPS 3 PO daily for high triglycerides PFYUX-0-NAJC ETHYL ESTERS 95459308870 No Longer Active Sarah Tidwell AMARYL 4 MG TABS 1 PO daily GLIMEPIRIDE 87729572242 No Longer Active Sarah SIMS'S NASAL SPRAY (DEXAMETHASONE, GENTAMICIN, SALINE) 2 puffs each nostril TID for [address] WILLS NASAL SPRAY ( DEXAMETHASONE, GENTAMICIN, SALINE) No Longer Active Sarah Tidwell AUGMENTIN 875-125 MG TAB 1 PO BID AMOXICILLIN-POT CLAVULANATE 72552872995 No Longer Active Sarah Tidwell AVANDIA 2 MG TABS 1 PO QD for diabetes ROSIGLITAZONE MALEATE 73478954598 No Longer Active Sarah Tidwell MIRA 180 MG TABS 1 PO QD for allergies FEXOFENADINE HCL Active Sarahmilana Tidwell LUNESTA 3 MG TABS 1 po prn ESZOPICLONE 53411841206 No Longer Active Yuliana [place] GLUCOPHAGE XR 500 MG TB24 2 po daily METFORMIN HCL 91421253624 Active Sarah Tidwell CRESTOR 5 MG TABS 1 PO daily for cholesterol ROSUVASTATIN CALCIUM 60117963266 Active Yuliana Ag LUNESTA 2 MG 1 po QHS LUNESTA 2 MG No Longer Active Sarahmilana Tidwell CORTISPORIN 0.5-0.5-99345 CREA apply to back of neck BID for 7d [id number] 86687540604 No Longer Active Sarah Tidwell KEFLEX 500 MG CAP 1 Po QID for 7 days CEPHALEXIN 29411681380 No Longer Active Sarah Tidwell KEFLEX 500 MG CAPS 1 PO QID CEPHALEXIN 42118532742 No Longer Active Sarah Tidwell CORTISPORIN 0.5-0.5-15029 CREA Apply to affected area posterior neck TID 2004 [id number] 95101923766 No Longer Active Sarah Tidwell AMOXIL 500 MG TABS BID for 7 days AMOXICILLIN 77587923617 No Longer Active Sarah Tidwell ASPIRIN 81 MG CHEW TAB 1 PO QD ASPIRIN 87461310743 Active Sarah Tidwell ZYRTEC-D 5-120 MG TB12 1 po q 12 hrs. CETIRIZINE- PSEUDOEPHEDRINE 90120690632 No Longer Active Sarah Tidwell Immunizations Vaccine Administration Date Value Standard Description Influenza vaccine given Done influenza virus vaccine, unspecified formulation Influenza vaccine given done influenza virus vaccine, unspecified formulation Vital Signs Date Name Value Unit Range Description blood pressure, diastolic - 8462-4 80 mm[Hg] [...] E&M - 3141-9 190 [lb_av] Weight Measured blood pressure, diastolic - 8462-4 86 mm[Hg] BP nuñez blood pressure, systolic - 8480-6 130 mm[Hg] BP sys pulse rate E&M - 8867-4 78 /min Heart rate respiratory rate E&M - 9279-1 14 /min Resp rate Diagnostic Results Date Name Value Unit Range Description Clinical Lists Update: CMP, Chol, Trigs, HbA1C, TSH, Micro - Chemistry cholesterol, serum 112 mg/dL carbon dioxide, venous blood 31.0 mmol/L albumin, serum 4.0 g/dL Estimated Glomerular Filtration Rate (calc) 79 mL/min/1.73m2 chloride, serum 105 mmol/L hemoglobin A1C, blood, as % of total hemoglobin 8.5 % thyroid stimulating hormone, serum 1.22 u[iU]/mL sodium, serum 140 mmol/L creatinine, serum 1.0 mg/dL alkaline phosphatase, serum 65 U/L potassium, serum 4.2 mmol/L glucose, plasma fasting 159 mg/dL bilirubin, serum, total 0.6 mg/dL protein, total, serum 6.2 g/dL calcium, serum 9.4 mg/dL triglyceride, serum, fasting 165 mg/dL aspartate aminotransferase (SGOT), serum 16 U/L anion gap, serum 8 urea nitrogen, blood 18 mg/dL alanine aminotransferase (SGPT), serum 22 U/L Clinical Lists Update: CMP, Chol, Trigs, HbA1C, TSH, Micro - Urinalysis microalbumin, urine, semiquantitative 0.3 mg/dL Clinical Lists Update: CMP,Chol,Trig,HgA1c - Chemistry creatinine, serum 1.4 mg/dL glucose, plasma fasting 147 mg/dL sodium, serum 137 mmol/L hemoglobin A1C, blood, as % of total hemoglobin 8.6 % potassium, serum 4.4 mmol/L protein, total, serum 6.5 g/dL anion gap, serum 7 aspartate aminotransferase (SGOT), serum 19 U/L carbon dioxide, venous blood 30.0 mmol/L triglyceride, serum, fasting 173 mg/dL cholesterol, serum 109 mg/dL Estimated Glomerular Filtration Rate (calc) 55 mL/min/1.73m2 chloride, serum 104 mmol/L calcium, serum 9.4 mg/dL bilirubin, serum, total 0.7 mg/dL urea nitrogen, blood 17 mg/dL alkaline phosphatase, serum 78 U/L alanine aminotransferase (SGPT), serum 33 U/L albumin, serum 4.1 g/dL Clinical Lists Update: CMP,FLP,HgA1c - Chemistry albumin, serum 4.2 g/dL alkaline phosphatase, serum 75 U/L urea nitrogen, blood 16 mg/dL calcium, serum 9.7 mg/dL chloride, serum 101 mmol/L cholesterol, serum 136 mg/dL carbon dioxide, venous blood 31.0 mmol/L creatinine, serum 1.3 mg/dL HDL cholesterol, serum 30.0 mg/dL hemoglobin A1C, blood, as % of total hemoglobin 9.3 % LDL cholesterol, serum 78 mg/dL protein, total, serum 6.6 g/dL aspartate aminotransferase (SGOT), serum 29 U/L alanine aminotransferase (SGPT), serum 60 U/L bilirubin, serum, total 0.7 mg/dL triglyceride, serum, fasting 141 mg/dL sodium, serum 133 mmol/L anion gap, serum 6 cholesterol/HDL ratio, serum, percent 4.5 glucose, plasma fasting 121 mg/dL Estimated Glomerular Filtration Rate (calc) 63 mL/min/1.73m2 potassium, serum 4.7 mmol/L Encounters Code Encounter Date Provider Facility CPT-11076 Ofc Vst, Est Level IV 20:26:15 CDT Sarah Tidwell DO, FACP CPT-63942 Ofc Vst, Est Level IV 12:57:00 CDT Sarah Tidwell DO, FACP CPT-79759 Ofc Vst, Est Level IV 16:50:31 CDT Sarah Tidwell [facility] CPT-14436 Ofc Vst, Est Level III 16:42:31 [employer] Sarah Tidwell DO, FACP CPT-54765 Ofc Vst, Est Level IV 21:22:46 [employer] Sarah Tidwell DO, FACP CPT-07216 Ofc Vst, Est Level III 21:17:37 CDT Sraah Tidwell DO, FACP CPT-61114 Ofc Vst, Est Level III 13:46:44 CDT Sarah Tanesha Tidwell Sarah S Tidwell, DO, FACP CPT-44955 Ofc Vst, Est Level III 15:31:19 CDT Sarah Tanesha Wiseman Tidwell, DO, FACP CPT-03119 Ofc Vst, Est Level III 15:42:13 [employer] Sarah Tanesha Wiseman Diann, DO, FACP CPT-92657 Ofc Vst, Est Level IV 11:22:49 CDT Sarah Tanesha Wiseman Diann, DO, FACP CPT-43887 Ofc Vst, Est Level IV 11:33:36 CDT Sarah Tanesha Wiseman Diann, DO, FACP CPT-41736 Ofc Vst, Est Level IV 11:19:42 [employer] Sarahmilana Wiseman Diann, DO, FACP CPT-73311 Ofc Vst, Est Level IV 10:56:54 CDT Sarah Tanesha Wiseman Diann, DO, FACP CPT-74477 Ofc Vst, Est Level IV 10:26:50 CDT Sarah Tanesha Wiseman Diann, DO, FACP CPT-50771 Ofc Vst, Est Level IV 09:48:46 [employer] Sarah Wiseman Diann, DO, FACP CPT-07941 Ofc Vst, Est Level IV 10:10:00 [employer] Sarahmilana Wiseman Diann, DO, FACP CPT-63781 Ofc Vst, Est Level IV 09:52:11 CDT Sarahmilana Wiseman Diann, DO, FACP CPT-32613 Ofc Vst, Est Level IV 09:34:58 CDT Sarahmilana Wiseman Diann, DO, FACP CPT-32599 Ofc Vst, Est Level III 17:03:52 [employer] Sarah Tanesha Wiseman Diann, DO, FACP CPT-10072 Ofc Vst, Est Level IV 09:28:00 [employer] Sarah Wiseman Tidwell, DO, FACP CPT-87667 Ofc Vst, Est Level V 11:08:12 CDT Sarah Wiseman Tidwell, DO, FACP CPT-98323 Ofc Vst, Est Level IV 12:44:14 CDT Sarah Tanesha Wiseman Tidwell, DO, FACP CPT-74302 Ofc Vst, Est Level IV 09:43:11 CDT Sarah Tanesha Wiseman Tidwell, DO, FACP CPT-25367 Ofc Vst, Est Level III 10:32:15 CDT Sarah Wiseman Tidwell, DO, FACP CPT-72497 Ofc Vst, Est Level IV 14:52:57 CDT Sarahmilana Wiseman Tidwell, DO, FACP CPT-40699 Ofc Vst, Est Level IV 12:04:03 CDT Sarahmilana Wiseman Tidwell, DO, FACP CPT-24671 Ofc Vst, Est Level V 11:59:56 CDT Sarah Wiseman Tidwell, DO, FACP CPT-53910 Ofc Vst, Est Level IV 17:11:53 CDT Sarahmilana Wiseman Tidwell, DO, FACP CPT-05255 Ofc Vst, Est Level IV 16:57:36 [employer] Sarah Wiseman Tidwell, DO, FACP CPT-45546 Ofc Vst, Est Level V 11:17:45 [employer] Sarah Wiseman Tidwell, DO, FACP CPT-34201 Ofc Vst, Est Level IV 09:27:52 [employer] Sarah Wiseman Tidwell, DO, FACP CPT-93184 Ofc Vst, Est Level IV 11:10:52 CDT Sarah Tanesha Diann Smith Ivone Diann, DO, FACP CPT-44137 Ofc Vst, Est Level IV 15:46:30 CDT Sarah Tanesha Diann Estrellai S Tidwell, DO, FACP CPT-88534 Ofc Vst, Est Level IV 16:18:20 CDT Sarah Taneshadevin Tidwell, DO, FACP CPT-64327 Ofc Vst, Est Level V 17:06:31 [employer] Sarah Tanesha Diann Estrellai S Diann, DO, FACP CPT-64836 Ofc Vst, Est Level IV 17:58:03 CDT Sarah Tanesha Diann Tidwell, DO, FACP CPT-41881 Ofc Vst, Est Level IV 09:25:46 CDT Sarahmilana Tidwell [facility] [place] CPT-78012 Ofc Vst, Est Level IV 13:54:17 [employer] Sarah Tidwell [facility] [place] CPT-84438 Ofc Vst, Est Level III 19:28:13 [employer] Sarah Tidwell [facility] [place] CPT-77413 Ofc Vst, Est Level IV 15:50:57 [employer] Sarah Tidwell [facility] [place] CPT-17768 Ofc Vst, Est Level IV 13:51:16 [employer] Sarah Tidwell [facility] [place] CPT-37961 Ofc Vst, Est Level IV 09:58:27 CDT Sarah Tidwell [facility] [place] CPT-90703 Ofc Vst, Est Level IV 09:33:18 [employer] Sarah Tidwell [facility] [place] CPT-53477 Ofc Vst, Est Level III 09:35:19 [employer] Sarah Tidwell [facility] [place] CPT-78276 Ofc Vst, Est Level IV 09:54:59 [employer] Sarah Tidwell [facility] [place] CPT-54535 Ofc Vst, Est Level IV 09:41:01 CDT Sarah Taneshadevin Tidwell [facility] [place] CPT-14324 Ofc Vst, Est Level II 09:54:39 CDT Sarah Tanesha Tidwell [facility] [place] CPT-14097 Ofc Vst, Est Level IV 17:42:28 CDT Sarah Tanesha Tidwell [facility] [place] CPT-96080 Ofc Vst, Est Level III 17:52:28 [employer] Sarah Tanesha Tidwell [facility] [place] CPT-01547 Ofc Vst, Est Level III 18:11:29 [employer] Sarah Tanesha Tidwell [facility] [place] CPT-82355 Ofc Vst, Est Level IV 18:14:34 CDT Sarah Tanesha Tidwell [facility] [place] CPT-44496 Ofc Vst, Est Level IV 17:50:40 CDT Sarah Tanesha Tidwell [facility] [place] CPT-15502 Ofc Vst, Est Level III 12:36:34 CDT Sarah Tanesha Tidwell [facility] [place] CPT-78007 Ofc Vst, Est Level III 13:13:59 CDT Sarah Tanesha Tidwell [facility] [place] CPT-16429 Ofc Vst, New Level III 15:18:01 CDT Sarah Tanesha Tidwell [facility] [place] Procedures Code Procedure Name Date Entry Date Standard Description CPT-15733 Preventive, Est, (40-64) 12:36:08 CDT CPT-06725 Handling of specimen from office to lab 13:51:16 [employer]
--- OUTSIDE RECORDS SUMMARY | 2017-02-23 13:32 | XMS REPORT | Clinical Summary ---
Author Author User, PAK Organization [facility] [place] Address Unknown Phone Unavailable Allergies, Adverse Reactions, [...] 2 puffs each nostril daily FLUTICASONE PROPIONATE 98550768232 Active Sarah Tidwell HUMALOG KWIKPEN 100 UNIT/ML SOPN 22 units before meals INSULIN LISPRO (HUMAN) 45020529106 Active Sarah Tidwell LANTUS SOLOSTAR 100 UNIT/ML SOLN 60 units Injection every night INSULIN GLARGINE 84515329109 Active Sarah Tidwell RETIN-A 0.01 % GEL Apply to affected area lower scalp every other day until resolved TRETINOIN 78627520789 No Longer Active Sarah Tidwell VITAMIN D3 5000 UNIT TABS 1 PO daily CHOLECALCIFEROL 53280654350 Active Sarah Tidwell BYDUREON 2 MG SUSR 1 injection once a week EXENATIDE 47085075734 Active Sarah Tidwell ANDRODERM 4 MG/24HR PT24 apply once daily TESTOSTERONE 91884030175 Active Breonna Squires REQUIP 1 MG TABS 1 po at HS [place]IN[place]LE HCL 64982105617 No Longer Active Sarah Tidwell ALPRAZOLAM 0.25 MG TABS 1 po q 4-6 hrs prn ALPRAZOLAM 03149469216 No Longer Active Sarah Tidwell GABAPENTIN 300 MG CAPS 1 in morning, 1 at lunch, and 5 PO QHS GABAPENTIN 08965455125 Active Sarah Tidwell FISH OIL 1000 MG CAPS 2 po daily OMEGA-3 FATTY ACIDS 88765090188 Active Sarah Tidwell SEROQUEL XR 150 MG [id number] 1-2 tabs po at 5pm QUETIAPINE FUMARATE 87076427058 Active Sarah Tidwell TRAZODONE HCL 100 MG TABS 1 PO QHS TRAZODONE HCL 02207754863 No Longer Active Sarah Tidwell CYMBALTA 60 MG CPEP 2 PO daily DULOXETINE HCL 05690442038 Active Yuliana Ag RESTORIL 15 MG CAP 1 PO QHS prn TEMAZEPAM 79280300984 No Longer Active Sarah Tidwell CYMBALTA 30 MG CPEP 1 PO daily for 1 week then change to 60mg tablet once daily DULOXETINE HCL 26410640849 No Longer Active Sarah Tidwell MULTIVITAMINS TABS 1 PO QD MULTIPLE VITAMIN 32608407101 Active Sarah Tidwell ZOLOFT 100 MG TABS 1 PO daily SERTRALINE HCL 22695819403 No Longer Active Sarahmilana Tidwell LOTENSIN 10 MG TAB 1 PO daily BENAZEPRIL HCL 94154973557 Active Yuliana Ag EFFEXOR XR 75 MG CP24 1 PO daily VENLAFAXINE HCL 45059529646 No Longer Active Sarah Tidwell PEN NEEDLES /16" 31G X 8 MM MISC as directed with injection twice daily. DX: Diabetes INSULIN PEN NEEDLE 19403016780 Active Sarah Tidwell AUGMENTIN 500-125 MG TAB 1 PO BID AMOXICILLIN-POT CLAVULANATE 61850620944 No Longer Active Sarah SIMS'S NASAL SPRAY (DEXAMETHASONE, GENTAMICIN, SALINE) 2 puffs each nostril TID for [address] WILLS NASAL SPRAY ( DEXAMETHASONE, GENTAMICIN, SALINE) No Longer Active Sarah Tidwell ALPRAZOLAM 0.5 MG TABS 1 PO QHS ALPRAZOLAM 22034123271 No Longer Active Sarahmilana Tidwell AMBIEN CR 12.5 MG TBCR 1 po q HS ZOLPIDEM TARTRATE 70242655488 No Longer Active Sarah Tidwell BYETTA 10 MCG PEN 10 MCG/0.04ML SOLN 1 injection BID EXENATIDE 17341438673 No Longer Active Sarah Tidwell ONETOUCH ULTRA TEST STRP Check BS TID DX: DIABETES GLUCOSE BLOOD 06619759834 Active Nicole Arias EFFEXOR XR 37.5 MG CP24 1 PO daily for 7 days VENLAFAXINE HCL 74120840170 No Longer Active Sarah Tidwell ZOLOFT 100 MG TABS 1 PO daily SERTRALINE HCL 31330477761 No Longer Active Sarah Tidwell OMACOR 1 GM CAPS 3 PO daily for high triglycerides [id number] ETHYL ESTERS 42668555976 No Longer Active Sarah Tidwell AMARYL 4 MG TABS 1 PO daily GLIMEPIRIDE 47447570783 No Longer Active Sarah SIMS'S NASAL SPRAY (DEXAMETHASONE, GENTAMICIN, SALINE) 2 puffs each nostril TID for [address] WILLS NASAL SPRAY ( DEXAMETHASONE, GENTAMICIN, SALINE) No Longer Active Sarah Tidwell AUGMENTIN 875-125 MG TAB 1 PO BID AMOXICILLIN-POT CLAVULANATE 18655272143 No Longer Active Sarah Tidwell AVANDIA 2 MG TABS 1 PO QD for diabetes ROSIGLITAZONE MALEATE 17600238053 No Longer Active Sarah Tidwell MIRA 180 MG TABS 1 PO QD for allergies FEXOFENADINE HCL Active Sarahmilana Tidwell LUNESTA 3 MG TABS 1 po prn ESZOPICLONE 04821290696 No Longer Active Yuliana [place] GLUCOPHAGE XR 500 MG TB24 2 po daily METFORMIN HCL 01639410001 Active Sarah Tidwell CRESTOR 5 MG TABS 1 PO daily for cholesterol ROSUVASTATIN CALCIUM 29542052041 Active Yuliana Ag LUNESTA 2 MG 1 po QHS LUNESTA 2 MG No Longer Active Sarahmilana Tidwell CORTISPORIN 0.5-0.5-00722 CREA apply to back of neck BID for 7d [id number] 29402865681 No Longer Active Sarah Tidwell KEFLEX 500 MG CAP 1 Po QID for 7 days CEPHALEXIN 52585056242 No Longer Active Sarah Tidwell KEFLEX 500 MG CAPS 1 PO QID CEPHALEXIN 65758073244 No Longer Active Sarah Tidwell CORTISPORIN 0.5-0.5-51031 CREA Apply to affected area posterior neck TID 2004 [id number] 36517355805 No Longer Active Sarah Tidwell AMOXIL 500 MG TABS BID for 7 days AMOXICILLIN 26382822912 No Longer Active Sarah Tidwell ASPIRIN 81 MG CHEW TAB 1 PO QD ASPIRIN 85639465743 Active Sarah Tidwell ZYRTEC-D 5-120 MG TB12 1 po q 12 hrs. CETIRIZINE- PSEUDOEPHEDRINE 22090249297 No Longer Active Sarah Tidwell Immunizations Vaccine [...] mmol/L Encounters Code Encounter Date Provider Facility CPT-24120 Ofc Vst, Est Level IV 20:26:15 CDT Sarah Tidwell DO, FACP CPT-70723 Ofc Vst, Est Level IV 12:57:00 CDT Sarah Tidwell DO, FACP CPT-82755 Ofc Vst, Est Level IV 16:50:31 CDT Sarah Tidwell [facility] CPT-50338 Ofc Vst, Est Level III 16:42:31 [facility] Sarah Tidwell DO, FACP CPT-73666 Ofc Vst, Est Level IV 21:22:46 [employer] Sarah Tidwell DO, FACP CPT-63735 Ofc Vst, Est Level III 21:17:37 CDT Sarah Tidwell DO, FACP CPT-70691 Ofc Vst, Est Level III 13:46:44 CDT Sarah Tanesha Tidwell Sarah S Tidwell, DO, FACP CPT-01330 Ofc Vst, Est Level III 15:31:19 CDT Sarah Tanesha Wiseamn Tidwell, DO, FACP CPT-27562 Ofc Vst, Est Level III 15:42:13 [facility] Sarah Tanesha Wiseman Diann, DO, FACP CPT-44900 Ofc Vst, Est Level IV 11:22:49 CDT Sarah Tanesha Wiseman Diann, DO, FACP CPT-06355 Ofc Vst, Est Level IV 11:33:36 CDT Sarah Tanesha Wiseman Diann, DO, FACP CPT-54567 Ofc Vst, Est Level IV 11:19:42 [employer] Sarahmilana Wiseman Diann, DO, FACP CPT-71793 Ofc Vst, Est Level IV 10:56:54 CDT Sarah Tanesha Wiseman Diann, DO, FACP CPT-03149 Ofc Vst, Est Level IV 10:26:50 CDT Sarah Tanesha Wiseman Diann, DO, FACP CPT-79565 Ofc Vst, Est Level IV 09:48:46 [employer] Sarah Wiseman Diann, DO, FACP CPT-90710 Ofc Vst, Est Level IV 10:10:00 [employer] Sarahmilana Wiseman Diann, DO, FACP CPT-43250 Ofc Vst, Est Level IV 09:52:11 CDT Sarahmilana Wiseman Diann, DO, FACP CPT-88255 Ofc Vst, Est Level IV 09:34:58 CDT Sarahmilana Wiseman Diann, DO, FACP CPT-76644 Ofc Vst, Est Level III 17:03:52 [employer] Sarah Tanesha Wiseman Diann, DO, FACP CPT-13420 Ofc Vst, Est Level IV 09:28:00 [employer] Sarah Wiseman Tidwell, DO, FACP CPT-22444 Ofc Vst, Est Level V 11:08:12 CDT Sarah Wiseman Tidwell, DO, FACP CPT-70652 Ofc Vst, Est Level IV 12:44:14 CDT Sarah Tanesha Wiseman Itdwell, DO, FACP CPT-75008 Ofc Vst, Est Level IV 09:43:11 CDT Sarah Tanesha Wiseman Tidwell, DO, FACP CPT-04971 Ofc Vst, Est Level III 10:32:15 CDT Sarah Wiseman Tidwell, DO, FACP CPT-37893 Ofc Vst, Est Level IV 14:52:57 CDT Sarahmilana Wiseman Tidwell, DO, FACP CPT-95063 Ofc Vst, Est Level IV 12:04:03 CDT Sarahmilana Wiseman Tidwell, DO, FACP CPT-26569 Ofc Vst, Est Level V 11:59:56 CDT Sarah Wiseman Tidwell, DO, FACP CPT-77034 Ofc Vst, Est Level IV 17:11:53 CDT Sarahmilana Wiseman Tidwell, DO, FACP CPT-25276 Ofc Vst, Est Level IV 16:57:36 [employer] Sarah Wiseman Tidwell, DO, FACP CPT-72701 Ofc Vst, Est Level V 11:17:45 [employer] Sarah Wiseman Tidwell, DO, FACP CPT-18543 Ofc Vst, Est Level IV 09:27:52 [employer] Sarah Wiseman Tidwell, DO, FACP CPT-34783 Ofc Vst, Est Level IV 11:10:52 CDT Sarah Tanesha Diann Smith Ivone Diann, DO, FACP CPT-29613 Ofc Vst, Est Level IV 15:46:30 CDT Sarah Tanesha Diann Estrellai S Tidwell, DO, FACP CPT-26413 Ofc Vst, Est Level IV 16:18:20 CDT Sarah Taneshadevin Tidwell, DO, FACP CPT-46154 Ofc Vst, Est Level V 17:06:31 [employer] Sarah Tanesha Diann Estrellai S Diann, DO, FACP CPT-17100 Ofc Vst, Est Level IV 17:58:03 CDT Sarah Tanesha Diann Tidwell, DO, FACP CPT-99015 Ofc Vst, Est Level IV 09:25:46 CDT Sarahmilana Tidwell [facility] [place] CPT-93153 Ofc Vst, Est Level IV 13:54:17 [employer] Sarah Tidwell [facility] [place] CPT-08042 Ofc Vst, Est Level III 19:28:13 [employer] Sarah Tidwell [facility] [place] CPT-96684 Ofc Vst, Est Level IV 15:50:57 [employer] Sarah Tidwell [facility] [place] CPT-83967 Ofc Vst, Est Level IV 13:51:16 [employer] Sarah Tidwell [facility] [place] CPT-17993 Ofc Vst, Est Level IV 09:58:27 CDT Sarah Tidwell [facility] [place] CPT-47879 Ofc Vst, Est Level IV 09:33:18 [employer] Sarah Tidwell [facility] [place] CPT-83865 Ofc Vst, Est Level III 09:35:19 [employer] Sarah Tidwell [facility] [place] CPT-75319 Ofc Vst, Est Level IV 09:54:59 [employer] Sarah Tidwell [facility] [place] CPT-73020 Ofc Vst, Est Level IV 09:41:01 CDT Sarah Taneshadevin Tidwell [facility] [place] CPT-07459 Ofc Vst, Est Level II 09:54:39 CDT Sarah Tanesha Tidwell [facility] [place] CPT-95649 Ofc Vst, Est Level IV 17:42:28 CDT Sarah Tanesha Tidwell [facility] [place] CPT-12821 Ofc Vst, Est Level III 17:52:28 [employer] Sarah Tanesha Tidwell [facility] [place] CPT-58825 Ofc Vst, Est Level III 18:11:29 [employer] Sarah Tanesha Tidwell [facility] [place] CPT-61806 Ofc Vst, Est Level IV 18:14:34 CDT Sarah Tanesha Tidwell [facility] [place] CPT-32584 Ofc Vst, Est Level IV 17:50:40 CDT Sarah Tanesha Tidwell [facility] [place] CPT-77664 Ofc Vst, Est Level III 12:36:34 CDT Sarah Tanesha Tidwell [facility] [place] CPT-59740 Ofc Vst, Est Level III 13:13:59 CDT Sarah Tanesha Tidwell [facility] [place] CPT-43842 Ofc Vst, New Level III 15:18:01 CDT Sarah Tanesha Tidwell [facility] [place] Procedures Code Procedure Name Date Entry Date Standard Description CPT-06279 Preventive, Est, (40-64) 12:36:08 CDT CPT-69287 Handling of specimen from office to lab 13:51:16 [employer]
--- OUTSIDE RECORDS SUMMARY | 2017-02-23 13:33 | XMS REPORT | Clinical Summary ---
Author Author User, Barnacle Organization [facility] [place] Address Unknown Phone Unavailable Allergies, Adverse Reactions, [...] 2 puffs each nostril daily FLUTICASONE PROPIONATE 27307789744 Active Sarah Tidwell HUMALOG KWIKPEN 100 UNIT/ML SOPN 22 units before meals INSULIN LISPRO (HUMAN) 36264324171 Active Sarah Tidwell LANTUS SOLOSTAR 100 UNIT/ML SOLN 60 units Injection every night INSULIN GLARGINE 04321415973 Active Sarah Tidwell RETIN-A 0.01 % GEL Apply to affected area lower scalp every other day until resolved TRETINOIN 80477867385 No Longer Active Sarah Tidwell VITAMIN D3 5000 UNIT TABS 1 PO daily CHOLECALCIFEROL 33682823752 Active Sarah Tidwell BYDUREON 2 MG SUSR 1 injection once a week EXENATIDE 97531341142 Active Sarah Tidwell ANDRODERM 4 MG/24HR PT24 apply once daily TESTOSTERONE 57689151540 Active Breonna Squires REQUIP 1 MG TABS 1 po at HS ROPINIROLE HCL 22552037941 No Longer Active Sarah Tidwell ALPRAZOLAM 0.25 MG TABS 1 po q 4-6 hrs prn ALPRAZOLAM 02114321322 No Longer Active Sarah Tidwell GABAPENTIN 300 MG CAPS 1 in morning, 1 at lunch, and 5 PO QHS GABAPENTIN 34041559386 Active Sarah Tidwell FISH OIL 1000 MG CAPS 2 po daily OMEGA-3 FATTY ACIDS 02239708186 Active Sarah Tidwell SEROQUEL XR 150 MG [id number]-EQT 1-2 tabs po at 5pm QUETIAPINE FUMARATE 94339140355 Active Sarah Tidwell TRAZODONE HCL 100 MG TABS 1 PO QHS TRAZODONE HCL 53770496188 No Longer Active Sarah Tidwell CYMBALTA 60 MG CPEP 2 PO daily DULOXETINE HCL 25401755271 Active Yuliana Ag RESTORIL 15 MG CAP 1 PO QHS prn TEMAZEPAM 42726838199 No Longer Active Sarah Tidwell CYMBALTA 30 MG CPEP 1 PO daily for 1 week then change to 60mg tablet once daily DULOXETINE HCL 36051645316 No Longer Active Sarah Tidwell MULTIVITAMINS TABS 1 PO QD MULTIPLE VITAMIN 16712190988 Active Sarah Tidwell ZOLOFT 100 MG TABS 1 PO daily SERTRALINE HCL 36077072181 No Longer Active Sarahmilana Tidwell LOTENSIN 10 MG TAB 1 PO daily BENAZEPRIL HCL 18147659453 Active Yuliana Ag EFFEXOR XR 75 MG CP24 1 PO daily VENLAFAXINE HCL 82833730531 No Longer Active Sarah Tidwell PEN NEEDLES /16" 31G X 8 MM MISC as directed with injection twice daily. DX: Diabetes INSULIN PEN NEEDLE 18216964736 Active Sarah Tidwell AUGMENTIN 500-125 MG TAB 1 PO BID AMOXICILLIN-POT CLAVULANATE 39784976246 No Longer Active Sarah SIMS'S NASAL SPRAY (DEXAMETHASONE, GENTAMICIN, SALINE) 2 puffs each nostril TID for [address] WILLS NASAL SPRAY ( DEXAMETHASONE, GENTAMICIN, SALINE) No Longer Active Sarah Tidwell ALPRAZOLAM 0.5 MG TABS 1 PO QHS ALPRAZOLAM 37680134132 No Longer Active Sarahmilana Tidwell AMBIEN CR 12.5 MG TBCR 1 po q HS ZOLPIDEM TARTRATE 76553395018 No Longer Active Sarah Tidwell BYETTA 10 MCG PEN 10 MCG/0.04ML SOLN 1 injection BID EXENATIDE 17407507486 No Longer Active Sarah Tidwell ONETOUCH ULTRA TEST STRP Check BS TID DX: DIABETES GLUCOSE BLOOD 84503141261 Active Nicole Arias EFFEXOR XR 37.5 MG CP24 1 PO daily for 7 days VENLAFAXINE HCL 44748126894 No Longer Active Sarah Tidwell ZOLOFT 100 MG TABS 1 PO daily SERTRALINE HCL 58048467319 No Longer Active Sarah Tidwell OMACOR 1 GM CAPS 3 PO daily for high triglycerides [id number] ETHYL ESTERS 44530621822 No Longer Active Sarah Tidwell AMARYL 4 MG TABS 1 PO daily GLIMEPIRIDE 03200543012 No Longer Active Sarah SIMS'S NASAL SPRAY (DEXAMETHASONE, GENTAMICIN, SALINE) 2 puffs each nostril TID for [address] WILLS NASAL SPRAY ( DEXAMETHASONE, GENTAMICIN, SALINE) No Longer Active Sarah Tidwell AUGMENTIN 875-125 MG TAB 1 PO BID AMOXICILLIN-POT CLAVULANATE 02852510751 No Longer Active Sarah Tidwell AVANDIA 2 MG TABS 1 PO QD for diabetes ROSIGLITAZONE MALEATE 53016213184 No Longer Active Sarah Tidwell MIRA 180 MG TABS 1 PO QD for allergies FEXOFENADINE HCL Active Sarahmilana Tidwell LUNESTA 3 MG TABS 1 po prn ESZOPICLONE 41189004777 No Longer Active Yuliana [place] GLUCOPHAGE XR 500 MG TB24 2 po daily METFORMIN HCL 56353955171 Active Sarah Tidwell CRESTOR 5 MG TABS 1 PO daily for cholesterol ROSUVASTATIN CALCIUM 63084151678 Active Yuliana Ag LUNESTA 2 MG 1 po QHS LUNESTA 2 MG No Longer Active Sarahmilana Tidwell CORTISPORIN 0.5-0.5-54882 CREA apply to back of neck BID for 7d [id number] 59053404326 No Longer Active Sarah Tidwell KEFLEX 500 MG CAP 1 Po QID for 7 days CEPHALEXIN 91178202965 No Longer Active Sarah Tidwell KEFLEX 500 MG CAPS 1 PO QID CEPHALEXIN 75875051166 No Longer Active Sarah Tidwell CORTISPORIN 0.5-0.5-38601 CREA Apply to affected area posterior neck TID 2004 [id number] 77388347637 No Longer Active Sarah Tidwell AMOXIL 500 MG TABS BID for 7 days AMOXICILLIN 61890319869 No Longer Active Sarah Tidwell ASPIRIN 81 MG CHEW TAB 1 PO QD ASPIRIN 93341279058 Active Sarah Tidwell ZYRTEC-D 5-120 MG TB12 1 po q 12 hrs. CETIRIZINE- PSEUDOEPHEDRINE 76279994666 No Longer Active Sarah Tidwell Immunizations Vaccine [...] mmol/L Encounters Code Encounter Date Provider Facility CPT-95268 Ofc Vst, Est Level IV 20:26:15 CDT Sarah Tidwell DO, FACP CPT-92892 Ofc Vst, Est Level IV 12:57:00 CDT Sarah Tidwell DO, FACP CPT-03311 Ofc Vst, Est Level IV 16:50:31 CDT Sarah Tidwell [facility] CPT-66882 Ofc Vst, Est Level III 16:42:31 [employer] Sarah Tidwell DO, FACP CPT-96442 Ofc Vst, Est Level IV 21:22:46 [employer] Sarah Tidwell DO, FACP CPT-26213 Ofc Vst, Est Level III 21:17:37 CDT Sarah Tidwell DO, FACP CPT-05316 Ofc Vst, Est Level III 13:46:44 CDT Sarah Tanesha Tidwell Sarah S Tidwell, DO, FACP CPT-31420 Ofc Vst, Est Level III 15:31:19 CDT Sarah Tanesha Wiseman Tidwell, DO, FACP CPT-26197 Ofc Vst, Est Level III 15:42:13 [employer] Sarah Tanesha Wiseman Diann, DO, FACP CPT-82344 Ofc Vst, Est Level IV 11:22:49 CDT Sarah Tanesha Wiseman Diann, DO, FACP CPT-02980 Ofc Vst, Est Level IV 11:33:36 CDT Sarah Tanesha Wiseman Diann, DO, FACP CPT-68157 Ofc Vst, Est Level IV 11:19:42 [employer] Sarahmilana Wiseman Diann, DO, FACP CPT-64533 Ofc Vst, Est Level IV 10:56:54 CDT Sarah Tanesha Wiseman Diann, DO, FACP CPT-48699 Ofc Vst, Est Level IV 10:26:50 CDT Sarah Tanesha Wiseman Diann, DO, FACP CPT-62200 Ofc Vst, Est Level IV 09:48:46 [employer] Sarah Wiseman Diann, DO, FACP CPT-49010 Ofc Vst, Est Level IV 10:10:00 [employer] Sarahmilana Wiseman Diann, DO, FACP CPT-94795 Ofc Vst, Est Level IV 09:52:11 CDT Sarahmilana Wiseman Diann, DO, FACP CPT-67164 Ofc Vst, Est Level IV 09:34:58 CDT Sarahmilana Wiseman Diann, DO, FACP CPT-49451 Ofc Vst, Est Level III 17:03:52 [employer] Sarah Tanesha Wiseman Diann, DO, FACP CPT-17725 Ofc Vst, Est Level IV 09:28:00 [employer] Sarah Wiseman Tidwell, DO, FACP CPT-91705 Ofc Vst, Est Level V 11:08:12 CDT Sarah Wiseman Tidwell, DO, FACP CPT-09639 Ofc Vst, Est Level IV 12:44:14 CDT Sarah Tanesha Wiseman Tidwell, DO, FACP CPT-26605 Ofc Vst, Est Level IV 09:43:11 CDT Sarah Tanesha Wiseman Tidwell, DO, FACP CPT-51812 Ofc Vst, Est Level III 10:32:15 CDT Sarah Wiseman Tidwell, DO, FACP CPT-39132 Ofc Vst, Est Level IV 14:52:57 CDT Sarahmilana Wiseman Tidwell, DO, FACP CPT-87014 Ofc Vst, Est Level IV 12:04:03 CDT Sarahmilana Wiseman Tidwell, DO, FACP CPT-82386 Ofc Vst, Est Level V 11:59:56 CDT Sarah Wiseman Tidwell, DO, FACP CPT-94427 Ofc Vst, Est Level IV 17:11:53 CDT Sarahmilana Wiseman Tidwell, DO, FACP CPT-98073 Ofc Vst, Est Level IV 16:57:36 [employer] Sarah Wiseman Tidwell, DO, FACP CPT-67799 Ofc Vst, Est Level V 11:17:45 [employer] Sarah Wiseman Tidwell, DO, FACP CPT-62491 Ofc Vst, Est Level IV 09:27:52 [employer] Sarah Wiseman Tidwell, DO, FACP CPT-31054 Ofc Vst, Est Level IV 11:10:52 CDT Sarah Tanesha Diann Smith Ivone Diann, DO, FACP CPT-75516 Ofc Vst, Est Level IV 15:46:30 CDT Sarah Tanesha Diann Estrellai S Tidwell, DO, FACP CPT-16781 Ofc Vst, Est Level IV 16:18:20 CDT Sarah Taneshadevin Tidwell, DO, FACP CPT-91729 Ofc Vst, Est Level V 17:06:31 [employer] Sarah Tanesha Diann Estrellai S Diann, DO, FACP CPT-74408 Ofc Vst, Est Level IV 17:58:03 CDT Sarah Tanesha Diann Tidwell, DO, FACP CPT-95245 Ofc Vst, Est Level IV 09:25:46 CDT Sarahmilana Tidwell [facility] [place] CPT-43279 Ofc Vst, Est Level IV 13:54:17 [employer] Sarah Tidwell [facility] [place] CPT-69350 Ofc Vst, Est Level III 19:28:13 [employer] Sarah Tidwell [facility] [place] CPT-29666 Ofc Vst, Est Level IV 15:50:57 [employer] Sarah Tidwell [facility] [place] CPT-13932 Ofc Vst, Est Level IV 13:51:16 [employer] Sarah Tidwell [facility] [place] CPT-42318 Ofc Vst, Est Level IV 09:58:27 CDT Sarah Tidwell [facility] [place] CPT-89527 Ofc Vst, Est Level IV 09:33:18 [employer] Sarah Tidwell [facility] [place] CPT-17066 Ofc Vst, Est Level III 09:35:19 [employer] Sarah Tidwell [facility] [place] CPT-08584 Ofc Vst, Est Level IV 09:54:59 [employer] Sarah Tidwell [facility] [place] CPT-72098 Ofc Vst, Est Level IV 09:41:01 CDT Sarah Taneshadevin Tidwell [facility] [place] CPT-40838 Ofc Vst, Est Level II 09:54:39 [address] Tid[address] [facility] [place] CPT-49084 Ofc Vst, Est Level IV 17:42:28 [address]ha Tid[address] [facility] [place] CPT-89866 Ofc Vst, Est Level III 17:52:28 [employer] Sarah Tanesha Tidwell [facility] [place] CPT-32510 Ofc Vst, Est Level III 18:11:29 [employer] Sarah Tanesha Tidwell [facility] [place] CPT-50000 Ofc Vst, Est Level IV 18:14:[address] T[address] [facility] [place] CPT-70216 Ofc Vst, Est Level IV 17:50:40 [address] Tid[address] [facility] [place] CPT-00839 Ofc Vst, Est Level III 12:36:[address] T[address] [facility] [place] CPT-74989 Ofc Vst, Est Level III 13:13:59 [address] [facility] [place] CPT-05864 Ofc Vst, New Level III 15:18:01 CDT [address] T[address]ha Tid[address] [facility] [place] Procedures Code Procedure Name Date Entry Date Standard Description CPT-92615 Preventive, Est, (40-64) 12:36:08 CDT CPT-23661 Handling of specimen from office to lab 13:51:16 [employer] OFFIC[employer]
--- OUTSIDE RECORDS SUMMARY | 2017-02-23 13:34 | XMS REPORT | Clinical Summary ---
Author Author moiz winston Organization [facility] [place] [address] Phone Unavailable Allergies, Adverse Reactions, Alerts Allergy [...] MG CHEW TAB 1 PO QD ASPIRIN 00607267629 Active Sarah Tidwell CRESTOR 5 MG TABS 1 PO daily for cholesterol ROSUVASTATIN CALCIUM 95637453968 Active Yuliana Ag GLUCOPHAGE XR 500 MG TB24 2 po daily METFORMIN HCL 19297049681 Active Yuliana Ag MIRA 180 MG TABS 1 PO QD for allergies FEXOFENADINE HCL Active Sarah Tidwell FLONASE 50 MCG/DOSE INHALANT 1 puff each nostril BID FLONASE 50 MCG/DOSE INHALANT 43067371965 Active Sarah Tidwell ONETOUCH ULTRA TEST STRP Check BS TID DX: DIABETES GLUCOSE BLOOD 82427346307 Active Nicole Raias PEN NEEDLES 03/04" 31G X 8 MM MISC as directed with injection twice daily. DX: Diabetes INSULIN PEN NEEDLE 79166816050 Active Yuliana Ag LOTENSIN 10 MG TAB 1 PO daily BENAZEPRIL HCL 52822687527 Active Yuliana Ag MULTIVITAMINS TABS 1 PO QD MULTIPLE VITAMIN 20932171809 Active Sarah Tidwell CYMBALTA 60 MG CPEP 2 PO daily DULOXETINE HCL 44237628831 Active Breonna Squires SEROQUEL XR 150 MG [id number] 1-2 tabs po at 5pm QUETIAPINE FUMARATE 20961214544 Active Yuliana Ag FISH OIL 1000 MG CAPS 2 po daily OMEGA-3 FATTY ACIDS 39621393362 Active Sarah Tidwell GABAPENTIN 300 MG CAPS 1 in morning, 1 at lunch, and 5 PO QHS GABAPENTIN 35025856534 Active Sarah Tanesha Tidwell ANDRODERM 4 MG/24HR PT24 apply once daily TESTOSTERONE 91383216058 Active Breonna TA SOLOSTAR 100 UNIT/ML SOLN 55 units Injection every night INSULIN GLARGINE 42845493800 Active Yuliana Ag BYDUREON 2 MG SUSR 1 injection once a week EXENATIDE 37565246639 Active Sarahmilana Tidwell VITAMIN D3 5000 UNIT TABS 1 PO daily CHOLECALCIFEROL 42185316773 Active Sarah Tanesha Tidwell HUMALOG PEN 100 [...]
--- OUTSIDE RECORDS SUMMARY | 2017-02-23 13:34 | XMS REPORT | Clinical Summary ---
Author Author User, [employer] Organization [facility] Address Unknown Phone Unavailable Allergies, Adverse Reactions, [...] SOPN 22 UNITS BEFORE MEALS INSULIN ASPART 47544472136 Active Yuliana Carmel FLUTICASONE PROPIONATE 50 MCG/ACT SUSP 2 puffs each nostril daily FLUTICASONE PROPIONATE 31935069246 Active Sarah Tidwell HUMALOG KWIKPEN 100 UNIT/ML SOPN 22 units before meals INSULIN LISPRO (HUMAN) 79320966596 No Longer Active Sarah Tidwell LANTUS SOLOSTAR 100 UNIT/ML SOLN 60 units Injection every night INSULIN GLARGINE 77748135062 Active Sarah Tidwell RETIN-A 0.01 % GEL Apply to affected area lower scalp every other day until resolved TRETINOIN 29805550714 No Longer Active Sarah Tidwell VITAMIN D3 5000 UNIT TABS 1 PO daily CHOLECALCIFEROL 35031362513 Active Sarah Tidwell BYDUREON 2 MG SUSR 1 injection once a week EXENATIDE 29732822177 Active Sarah Tidwell ANDRODERM 4 MG/24HR PT24 apply once daily TESTOSTERONE 53034076247 Active Breonna Squires REQUIP 1 MG TABS 1 po at HS [place]IN[place] HCL 10113537135 No Longer Active Sarah Tidwell ALPRAZOLAM 0.25 MG TABS 1 po q 4-6 hrs prn ALPRAZOLAM 87248386742 No Longer Active Sarah Tidwell GABAPENTIN 300 MG CAPS 1 in morning, 1 at lunch, and 5 PO QHS GABAPENTIN 23261232040 Active Sarah Tidwell FISH OIL 1000 MG CAPS 2 po daily OMEGA-3 FATTY ACIDS 29577537163 Active Sarah Tidwell SEROQUEL XR 150 MG [id number] 1-2 tabs po at 5pm QUETIAPINE FUMARATE 49322719177 Active Sarah Tidwell TRAZODONE HCL 100 MG TABS 1 PO QHS TRAZODONE HCL 33781699232 No Longer Active Sarah Tidwell CYMBALTA 60 MG CPEP 2 PO daily DULOXETINE HCL 70196639296 Active Yuliana Ag RESTORIL 15 MG CAP 1 PO QHS prn TEMAZEPAM 29228166263 No Longer Active Sarah Tidwell CYMBALTA 30 MG CPEP 1 PO daily for 1 week then change to 60mg tablet once daily DULOXETINE HCL 50236712765 No Longer Active Sarah Tidwell MULTIVITAMINS TABS 1 PO QD MULTIPLE VITAMIN 89866840957 Active Sarah Tidwell ZOLOFT 100 MG TABS 1 PO daily SERTRALINE HCL 92681469929 No Longer Active Sarah Tidwell LOTENSIN 10 MG TAB 1 PO daily BENAZEPRIL HCL 92989650122 Active Yuliana Ag EFFEXOR XR 75 MG CP24 1 PO daily VENLAFAXINE HCL 14480732727 No Longer Active Sarah Tidwell PEN NEEDLES 03/04" 31G X 8 MM MISC as directed with injection twice daily. DX: Diabetes INSULIN PEN NEEDLE 91683602959 Active Sarah Tidwell AUGMENTIN 500-125 MG TAB 1 PO BID AMOXICILLIN-POT CLAVULANATE 44223931872 No Longer Active Sarah SIMS'S NASAL SPRAY (DEXAMETHASONE, GENTAMICIN, SALINE) 2 puffs each nostril TID for [address] WILLS NASAL SPRAY ( DEXAMETHASONE, GENTAMICIN, SALINE) No Longer Active Sarah Tanesha Tidwell ALPRAZOLAM 0.5 MG TABS 1 PO QHS ALPRAZOLAM 36222801806 No Longer Active Sarahmilana Tidwell AMBIEN CR 12.5 MG TBCR 1 po q HS ZOLPIDEM TARTRATE 93959121247 No Longer Active Sarah Tidwell BYETTA 10 MCG PEN 10 MCG/0.04ML SOLN 1 injection BID EXENATIDE 22462178136 No Longer Active Sarah Tidwell ONETOUCH ULTRA TEST STRP Check BS TID DX: DIABETES GLUCOSE BLOOD 60618085493 Active Nicole Arias EFFEXOR XR 37.5 MG CP24 1 PO daily for 7 days VENLAFAXINE HCL 83601944668 No Longer Active Sarah Tidwell ZOLOFT 100 MG TABS 1 PO daily SERTRALINE HCL 00660717788 No Longer Active Sarah Tidwell OMACOR 1 GM CAPS 3 PO daily for high triglycerides [id number] ETHYL ESTERS 59909359061 No Longer Active Sarah Tidwell AMARYL 4 MG TABS 1 PO daily GLIMEPIRIDE 68456601123 No Longer Active Sarah WILLS NASAL SPRAY (DEXAMETHASONE, GENTAMICIN, SALINE) 2 puffs each nostril TID for [address] WILLS NASAL SPRAY ( DEXAMETHASONE, GENTAMICIN, SALINE) No Longer Active Sarah Tidwell AUGMENTIN 875-125 MG TAB 1 PO BID AMOXICILLIN-POT CLAVULANATE 94475920232 No Longer Active Sarah Tidwell AVANDIA 2 MG TABS 1 PO QD for diabetes ROSIGLITAZONE MALEATE 48285960317 No Longer Active Sarah Tidwell MIRA 180 MG TABS 1 PO QD for allergies FEXOFENADINE HCL Active Sarah Tidwell LUNESTA 3 MG TABS 1 po prn ESZOPICLONE 55276968875 No Longer Active Yuliana Ag GLUCOPHAGE XR 500 MG TB24 2 po daily METFORMIN HCL 83686575644 Active Sarah Tidwell CRESTOR 5 MG TABS 1 PO daily for cholesterol ROSUVASTATIN CALCIUM 70386034200 Active Yuliana Ag LUNESTA 2 MG 1 po QHS LUNESTA 2 MG No Longer Active Sarahmilana Tidwell CORTISPORIN 0.5-0.5-58464 CREA apply to back of neck BID for 7d [id number] 19955271119 No Longer Active Sarah Tidwell KEFLEX 500 MG CAP 1 Po QID for 7 days CEPHALEXIN 50991510451 No Longer Active Sarah Tidwell KEFLEX 500 MG CAPS 1 PO QID CEPHALEXIN 71023111438 No Longer Active Sarah Tidwell CORTISPORIN 0.5-0.5-38623 CREA Apply to affected area posterior neck TID 2004 [id number] 64857564267 No Longer Active Sarah Tidwell AMOXIL 500 MG TABS BID for 7 days AMOXICILLIN 00019187945 No Longer Active Sarah Tidwell ASPIRIN 81 MG CHEW TAB 1 PO QD ASPIRIN 77348037052 Active Sarah Tidwell ZYRTEC-D 5-120 MG TB12 1 po q 12 hrs. CETIRIZINE- PSEUDOEPHEDRINE 20762169991 No Longer Active Sarah Tidwell Immunizations Vaccine [...] mmol/L Encounters Code Encounter Date Provider Facility CPT-51378 Ofc Vst, Est Level IV 20:26:15 CDT Sarah Tidwell DO, FACP CPT-25379 Ofc Vst, Est Level IV 12:57:00 CDT Sarah Tidwell DO, FACP CPT-64828 Ofc Vst, Est Level IV 16:50:31 CDT Sarah [facility] CPT-82201 Ofc Vst, Est Level III 16:42:31 MANUFACTURER'S SERVICE REPRESENTATIVE Sarah Tidwell DO, FACP CPT-25120 Ofc Vst, Est Level IV 21:22:46 MANUFACTURER'S SERVICE REPRESENTATIVE Sraah Tidwell DO, FACP CPT-05993 Ofc Vst, Est Level III 21:17:37 CDT Sarah Tanesha Tidwell Sarah S Tidwell, DO, FACP CPT-84217 Ofc Vst, Est Level III 13:46:44 CDT Sarah Tanesha Wiseman Diann, DO, FACP CPT-29824 Ofc Vst, Est Level III 15:31:19 CDT Sarah Tanesha Wiseman Diann, DO, FACP CPT-66571 Ofc Vst, Est Level III 15:42:13 MANUFACTURER'S SERVICE REPRESENTATIVE Sarah Tanesha Wiseman Diann, DO, FACP CPT-24398 Ofc Vst, Est Level IV 11:22:49 CDT Sarah Tanesha Wiseman Diann, DO, FACP CPT-38148 Ofc Vst, Est Level IV 11:33:36 CDT Sarah Tanesha Wiseman Diann, DO, FACP CPT-20453 Ofc Vst, Est Level IV 11:19:42 MANUFACTURER'S SERVICE REPRESENTATIVE Sarah Tanesha Wiseman Diann, DO, FACP CPT-14080 Ofc Vst, Est Level IV 10:56:54 CDT Sarah Tanesha Wiseman Diann, DO, FACP CPT-25064 Ofc Vst, Est Level IV 10:26:50 CDT Sarahmilana Wiseman Diann, DO, FACP CPT-67539 Ofc Vst, Est Level IV 09:48:46 MANUFACTURER'S SERVICE REPRESENTATIVE Sarah Tanesha Wiseman Diann, DO, FACP CPT-79716 Ofc Vst, Est Level IV 10:10:00 MANUFACTURER'S SERVICE REPRESENTATIVE Sarah Wiseman Diann, DO, FACP CPT-78984 Ofc Vst, Est Level IV 09:52:11 CDT Sarahmilana Wiseman Diann, DO, FACP CPT-95422 Ofc Vst, Est Level IV 09:34:58 CDT Sarah Tanesha Wiseman Diann, DO, FACP CPT-05504 Ofc Vst, Est Level III 17:03:52 MANUFACTURER'S SERVICE REPRESENTATIVE Sarah Wiseman Tidwell, DO, FACP CPT-96172 Ofc Vst, Est Level IV 09:28:00 MANUFACTURER'S SERVICE REPRESENTATIVE Sarah Tanesha Wiseman Tidwell, DO, FACP CPT-69515 Ofc Vst, Est Level V 11:08:12 CDT Sarah Tanesha Wiseman Tidwell, DO, FACP CPT-48427 Ofc Vst, Est Level IV 12:44:14 CDT Sarah Tanesha Wiseman Tidwell, DO, FACP CPT-47957 Ofc Vst, Est Level IV 09:43:11 CDT Sarah Tanesha Wiseman Tidwell, DO, FACP CPT-04904 Ofc Vst, Est Level III 10:32:15 CDT Sarah Tanesha Wiseman Diann, DO, FACP CPT-41802 Ofc Vst, Est Level IV 14:52:57 CDT Sarah Tanesha Wiseman Tidwell, DO, FACP CPT-83354 Ofc Vst, Est Level IV 12:04:03 CDT Sarahmilana Wiseman Tidwell, DO, FACP CPT-52453 Ofc Vst, Est Level V 11:59:56 CDT Sarah Tanesha Wiseman Diann, DO, FACP CPT-33351 Ofc Vst, Est Level IV 17:11:53 CDT Sarah Tanesha Wiseman Tidwell, DO, FACP CPT-98122 Ofc Vst, Est Level IV 16:57:36 MANUFACTURER'S SERVICE REPRESENTATIVE Sarah Tanesha Wiseman Tidwell, DO, FACP CPT-54762 Ofc Vst, Est Level V 11:17:45 MANUFACTURER'S SERVICE REPRESENTATIVE Sarah Tanesha Wiseman Diann, DO, FACP CPT-85363 Ofc Vst, Est Level IV 09:27:52 MANUFACTURER'S SERVICE REPRESENTATIVE Sarah Tanesha Diann Tidwell, DO, FACP CPT-66711 Ofc Vst, Est Level IV 11:10:52 CDT Sarah Tanesha Diann Tidwell, DO, FACP CPT-50318 Ofc Vst, Est Level IV 15:46:30 CDT Sarah Tanesha Diann Tidwell, DO, FACP CPT-43800 Ofc Vst, Est Level IV 16:18:20 CDT Sarah Tanesha Diann Sarah Ivone Diann, DO, FACP CPT-57621 Ofc Vst, Est Level V 17:06:31 MANUFACTURER'S SERVICE REPRESENTATIVE Sarah Almendarez Diann Tidwell, DO, FACP CPT-91013 Ofc Vst, Est Level IV 17:58:03 CDT Sarah Tanesha Diann Tidwell, DO, FACP CPT-45397 Ofc Vst, Est Level IV 09:25:46 CDT Sarahmilana Tidwell [facility] CPT-11161 Ofc Vst, Est Level IV 13:54:17 MANUFACTURER'S SERVICE REPRESENTATIVE Sarah Tidwell [facility] CPT-01400 Ofc Vst, Est Level III 19:28:13 MANUFACTURER'S SERVICE REPRESENTATIVE Sarah Tidwell [facility] CPT-66964 Ofc Vst, Est Level IV 15:50:57 MANUFACTURER'S SERVICE REPRESENTATIVE Sarah Tidwell [facility] CPT-91005 Ofc Vst, Est Level IV 13:51:16 MANUFACTURER'S SERVICE REPRESENTATIVE Sarah Tidwell [facility] CPT-35407 Ofc Vst, Est Level IV 09:58:27 CDT Sarah Tidwell [facility] CPT-01621 Ofc Vst, Est Level IV 09:33:18 MANUFACTURER'S SERVICE REPRESENTATIVE Sarah Tidwell [facility] CPT-46584 Ofc Vst, Est Level III 09:35:19 MANUFACTURER'S SERVICE REPRESENTATIVE Sarah Tidwell [facility] CPT-62951 Ofc Vst, Est Level IV 09:54:59 MANUFACTURER'S SERVICE REPRESENTATIVE Sarah Taneshadevin Tidwell [facility] CPT-14674 Ofc Vst, Est Level IV 09:41:01 CDT Sarah Taneshadevin Tidwell [facility] CPT-48003 Ofc Vst, Est Level II 09:54:39 CDT Sarah Tanesha Tidwell [facility] CPT-89252 Ofc Vst, Est Level IV 17:42:28 CDT Sarah Taneshadevin Tidwell [facility] CPT-15149 Ofc Vst, Est Level III 17:52:28 MANUFACTURER'S SERVICE REPRESENTATIVE Sarah Tanesha Tidwell [facility] CPT-93362 Ofc Vst, Est Level III 18:11:29 MANUFACTURER'S SERVICE REPRESENTATIVE Sarah Tanesha Tidwell [facility] CPT-12693 Ofc Vst, Est Level IV 18:14:34 CDT Sarah Tanesha Tidwell [facility] CPT-93627 Ofc Vst, Est Level IV 17:50:40 CDT Sarah Taneshadevin Tidwell [facility] CPT-58808 Ofc Vst, Est Level III 12:36:34 CDT Sarah Tanesha Tidwell [facility] CPT-64585 Ofc Vst, Est Level III 13:13:59 CDT Sarah Taneshadevin Tidwell [facility] CPT-00697 Ofc Vst, New Level III 15:18:01 CDT Sarah Taneshadevin Tidwell [facility] Procedures Code Procedure Name Date Entry Date Standard Description CPT-56001 Preventive, Est, (40-64) 12:36:08 CDT CPT-23894 Handling of specimen from office to lab 13:51:16 MANUFACTURER'S SERVICE REPRESENTATIVE
--- OUTSIDE RECORDS SUMMARY | 2017-02-23 13:35 | XMS REPORT | Clinical Summary ---
Author Author moiz winston Organization [facility] [place] [address] Phone Unavailable Allergies, Adverse Reactions, Alerts Allergy [...] MG CHEW TAB 1 PO QD ASPIRIN 79482131923 Active Sarah Tidwell CRESTOR 5 MG TABS 1 PO daily for cholesterol ROSUVASTATIN CALCIUM 65535433712 Active Yuliana Ag GLUCOPHAGE XR 500 MG TB24 2 po daily METFORMIN HCL 92697544599 Active Yuliana Ag MIRA 180 MG TABS 1 PO QD for allergies FEXOFENADINE HCL Active Sarah Tidwell FLONASE 50 MCG/DOSE INHALANT 1 puff each nostril BID FLONASE 50 MCG/DOSE INHALANT 72782445771 Active Sarah Tidwell ONETOUCH ULTRA TEST STRP Check BS TID DX: DIABETES GLUCOSE BLOOD 42829071112 Active Nicole Arias PEN NEEDLES 03/04" 31G X 8 MM MISC as directed with injection twice daily. DX: Diabetes INSULIN PEN NEEDLE 19303498495 Active Yuliana Ag LOTENSIN 10 MG TAB 1 PO daily BENAZEPRIL HCL 57244838178 Active Yuliana Ag MULTIVITAMINS TABS 1 PO QD MULTIPLE VITAMIN 86616109285 Active Sarah Tidwell CYMBALTA 60 MG CPEP 2 PO daily DULOXETINE HCL 98547251066 Active Breonna Squires SEROQUEL XR 150 MG [id number] 1-2 tabs po at 5pm QUETIAPINE FUMARATE 91629039739 Active Yuliana Ag FISH OIL 1000 MG CAPS 2 po daily OMEGA-3 FATTY ACIDS 76796870133 Active Sarah Tidwell GABAPENTIN 300 MG CAPS 1 in morning, 1 at lunch, and 5 PO QHS GABAPENTIN 56886995142 Active Sarah Tanesha Tidwell ANDRODERM 4 MG/24HR PT24 apply once daily TESTOSTERONE 61538380629 Active Breonna TA SOLOSTAR 100 UNIT/ML SOLN 55 units Injection every night INSULIN GLARGINE 95722261355 Active Yuliana Ag BYDUREON 2 MG SUSR 1 injection once a week EXENATIDE 86632090005 Active Sarahmilana Tidwell VITAMIN D3 5000 UNIT TABS 1 PO daily CHOLECALCIFEROL 17316788142 Active Sarah Tanesha Tidwell HUMALOG PEN 100 [...]
--- OUTSIDE RECORDS SUMMARY | 2017-02-23 13:35 | XMS REPORT | Clinical Summary ---
Author Author moiz winston Organization [facility] [place] [address] Phone Unavailable Allergies, Adverse Reactions, Alerts Allergy [...] MG CHEW TAB 1 PO QD ASPIRIN 89235599919 Active Sarah Tidwell CRESTOR 5 MG TABS 1 PO daily for cholesterol ROSUVASTATIN CALCIUM 11485134050 Active Yuliana Ag GLUCOPHAGE XR 500 MG TB24 2 po daily METFORMIN HCL 50397326791 Active Yuliana Ag MIRA 180 MG TABS 1 PO QD for allergies FEXOFENADINE HCL Active Sarah Tidwell FLONASE 50 MCG/DOSE INHALANT 1 puff each nostril BID FLONASE 50 MCG/DOSE INHALANT 47998435255 Active Sarah Tidwell ONETOUCH ULTRA TEST STRP Check BS TID DX: DIABETES GLUCOSE BLOOD 39019749835 Active Nicole Arias PEN NEEDLES 03/04" 31G X 8 MM MISC as directed with injection twice daily. DX: Diabetes INSULIN PEN NEEDLE 18396591654 Active Yuliana Ag LOTENSIN 10 MG TAB 1 PO daily BENAZEPRIL HCL 99961527876 Active Yuliana Ag MULTIVITAMINS TABS 1 PO QD MULTIPLE VITAMIN 66047285174 Active Sarah Tidwell CYMBALTA 60 MG CPEP 2 PO daily DULOXETINE HCL 09923675560 Active Breonna Squires SEROQUEL XR 150 MG [id number] 1-2 tabs po at 5pm QUETIAPINE FUMARATE 95336640295 Active Yuliana Ag FISH OIL 1000 MG CAPS 2 po daily OMEGA-3 FATTY ACIDS 87302232402 Active Sarah Tidwell GABAPENTIN 300 MG CAPS 1 in morning, 1 at lunch, and 5 PO QHS GABAPENTIN 17498082231 Active Sarah Tanesha Tidwell ANDRODERM 4 MG/24HR PT24 apply once daily TESTOSTERONE 04949940463 Active Breonna TA SOLOSTAR 100 UNIT/ML SOLN 55 units Injection every night INSULIN GLARGINE 06376273079 Active Yuliana Ag BYDUREON 2 MG SUSR 1 injection once a week EXENATIDE 24842807504 Active Sarahmilana Tidwell VITAMIN D3 5000 UNIT TABS 1 PO daily CHOLECALCIFEROL 03588304967 Active Sarah Tanesha Tidwell HUMALOG PEN 100 [...]
--- OUTSIDE RECORDS SUMMARY | 2017-02-23 13:35 | XMS REPORT | Clinical Summary ---
Author Author moiz winston Organization [facility] [place] [address] Phone Unavailable Allergies, Adverse Reactions, Alerts Allergy [...] MG CHEW TAB 1 PO QD ASPIRIN 30042834538 Active Sarah Tidwell CRESTOR 5 MG TABS 1 PO daily for cholesterol ROSUVASTATIN CALCIUM 79047670697 Active Yuliana Ag GLUCOPHAGE XR 500 MG TB24 2 po daily METFORMIN HCL 20511226378 Active Yuliana Ag MIRA 180 MG TABS 1 PO QD for allergies FEXOFENADINE HCL Active Sarah Tidwell FLONASE 50 MCG/DOSE INHALANT 1 puff each nostril BID FLONASE 50 MCG/DOSE INHALANT 23542929296 Active Sarah Tidwell ONETOUCH ULTRA TEST STRP Check BS TID DX: DIABETES GLUCOSE BLOOD 52017659757 Active Nicole Arias PEN NEEDLES 03/04" 31G X 8 MM MISC as directed with injection twice daily. DX: Diabetes INSULIN PEN NEEDLE 13226647924 Active Yuliana Ag LOTENSIN 10 MG TAB 1 PO daily BENAZEPRIL HCL 01981971019 Active Yuliana Ag MULTIVITAMINS TABS 1 PO QD MULTIPLE VITAMIN 80012184214 Active Sarah Tidwell CYMBALTA 60 MG CPEP 2 PO daily DULOXETINE HCL 66086718665 Active Breonna Squires SEROQUEL XR 150 MG [id number] 1-2 tabs po at 5pm QUETIAPINE FUMARATE 82573914393 Active Yuliana Ag FISH OIL 1000 MG CAPS 2 po daily OMEGA-3 FATTY ACIDS 17578702016 Active Sarah Tidwell GABAPENTIN 300 MG CAPS 1 in morning, 1 at lunch, and 5 PO QHS GABAPENTIN 68066088315 Active Sarah Tanesha Tidwell ANDRODERM 4 MG/24HR PT24 apply once daily TESTOSTERONE 00642864014 Active Breonna TA SOLOSTAR 100 UNIT/ML SOLN 55 units Injection every night INSULIN GLARGINE 37889132803 Active Yuliana Ag BYDUREON 2 MG SUSR 1 injection once a week EXENATIDE 93838680107 Active Sarahmilana Tidwell VITAMIN D3 5000 UNIT TABS 1 PO daily CHOLECALCIFEROL 64581215485 Active Sarah Tanesha Tidwell HUMALOG PEN 100 [...]
--- OUTSIDE RECORDS SUMMARY | 2017-02-23 13:36 | XMS REPORT | Clinical Summary ---
Author Author moiz winston Organization [facility] [place] [address] Phone Unavailable Allergies, Adverse Reactions, Alerts Allergy [...] MG CHEW TAB 1 PO QD ASPIRIN 52286714355 Active Sarah Tidwell CRESTOR 5 MG TABS 1 PO daily for cholesterol ROSUVASTATIN CALCIUM 53754616685 Active Yuliana Ag GLUCOPHAGE XR 500 MG TB24 2 po daily METFORMIN HCL 75617695844 Active Yuliana Ag MIRA 180 MG TABS 1 PO QD for allergies FEXOFENADINE HCL Active Sarah Tidwell FLONASE 50 MCG/DOSE INHALANT 1 puff each nostril BID FLONASE 50 MCG/DOSE INHALANT 99574557245 Active Sarah Tidwell ONETOUCH ULTRA TEST STRP Check BS TID DX: DIABETES GLUCOSE BLOOD 73701116102 Active Nicole Arias PEN NEEDLES 03/04" 31G X 8 MM MISC as directed with injection twice daily. DX: Diabetes INSULIN PEN NEEDLE 38632274599 Active Yuliana Ag LOTENSIN 10 MG TAB 1 PO daily BENAZEPRIL HCL 80387349830 Active Yuliana Ag MULTIVITAMINS TABS 1 PO QD MULTIPLE VITAMIN 00500036871 Active Sarah Tidwell CYMBALTA 60 MG CPEP 2 PO daily DULOXETINE HCL 52999912539 Active Breonna Squires SEROQUEL XR 150 MG [id number] 1-2 tabs po at 5pm QUETIAPINE FUMARATE 42945568954 Active Yuliana Ag FISH OIL 1000 MG CAPS 2 po daily OMEGA-3 FATTY ACIDS 77196926675 Active Sarah Tidwell GABAPENTIN 300 MG CAPS 1 in morning, 1 at lunch, and 5 PO QHS GABAPENTIN 05631254910 Active Sarah Tanesha Tidwell ANDRODERM 4 MG/24HR PT24 apply once daily TESTOSTERONE 14745494132 Active Breonna TA SOLOSTAR 100 UNIT/ML SOLN 55 units Injection every night INSULIN GLARGINE 80264513551 Active Yuliana Ag BYDUREON 2 MG SUSR 1 injection once a week EXENATIDE 83023592690 Active Sarahmilana Tidwell VITAMIN D3 5000 UNIT TABS 1 PO daily CHOLECALCIFEROL 81476414027 Active Sarah Tanesha Tidwell HUMALOG PEN 100 [...]
--- OUTSIDE RECORDS SUMMARY | 2017-02-23 13:37 | XMS REPORT | Clinical Summary ---
Author Author moiz winston Organization [facility] [place] [address] Phone Unavailable Allergies, Adverse Reactions, Alerts Allergy [...] MG CHEW TAB 1 PO QD ASPIRIN 42314065458 Active Sarah Tidwell CRESTOR 5 MG TABS 1 PO daily for cholesterol ROSUVASTATIN CALCIUM 77873888668 Active Yuliana Ag GLUCOPHAGE XR 500 MG TB24 2 po daily METFORMIN HCL 83219000131 Active Yuliana Ag MIRA 180 MG TABS 1 PO QD for allergies FEXOFENADINE HCL Active Sarah Tidwell FLONASE 50 MCG/DOSE INHALANT 1 puff each nostril BID FLONASE 50 MCG/DOSE INHALANT 86968448223 Active Sarah Tidwell ONETOUCH ULTRA TEST STRP Check BS TID DX: DIABETES GLUCOSE BLOOD 22226647801 Active Nicole Arias PEN NEEDLES 03/04" 31G X 8 MM MISC as directed with injection twice daily. DX: Diabetes INSULIN PEN NEEDLE 53070094871 Active Yuliana gA LOTENSIN 10 MG TAB 1 PO daily BENAZEPRIL HCL 46301107052 Active Yuliana Ag MULTIVITAMINS TABS 1 PO QD MULTIPLE VITAMIN 06509262797 Active Sarah Tidwell CYMBALTA 60 MG CPEP 2 PO daily DULOXETINE HCL 80033440810 Active Breonna Squires SEROQUEL XR 150 MG [id number] 1-2 tabs po at 5pm QUETIAPINE FUMARATE 15206388309 Active Yuliana Ag FISH OIL 1000 MG CAPS 2 po daily OMEGA-3 FATTY ACIDS 84360202760 Active Sarah Tidwell GABAPENTIN 300 MG CAPS 1 in morning, 1 at lunch, and 5 PO QHS GABAPENTIN 04135888225 Active Sarah Almendarez Diann ANDRODERM 4 MG/24HR PT24 apply once daily TESTOSTERONE 91975647996 Active Breonna TA SOLOSTAR 100 UNIT/ML SOLN 55 units Injection every night INSULIN GLARGINE 01160104246 Active Yuliana Ag BYDUREON 2 MG SUSR 1 injection once a week EXENATIDE 21620497916 Active Sarah Tanesha Tidwell VITAMIN D3 5000 UNIT TABS 1 PO daily CHOLECALCIFEROL 62322659730 Active Sarah Tanesha Tidwell HUMALOG PEN 100 [...]
--- OUTSIDE RECORDS SUMMARY | 2017-02-23 13:37 | XMS REPORT | Clinical Summary ---
Author Author User, [employer] Organization [facility] [place] Address Unknown Phone Unavailable Allergies, Adverse Reactions, [...] SOPN 22 UNITS BEFORE MEALS INSULIN ASPART 81208489709 Active Yuliana Ag FLUTICASONE PROPIONATE 50 MCG/ACT SUSP 2 puffs each nostril daily FLUTICASONE PROPIONATE 63177610619 Active Sarah Tidwell HUMALOG KWIKPEN 100 UNIT/ML SOPN 22 units before meals INSULIN LISPRO (HUMAN) 57708468146 No Longer Active Sarah Tidwell LANTUS SOLOSTAR 100 UNIT/ML SOLN 60 units Injection every night INSULIN GLARGINE 27081690132 Active Yuliana Ag RETIN-A 0.01 % GEL Apply to affected area lower scalp every other day until resolved TRETINOIN 63538151303 No Longer Active Sarah Tidwell VITAMIN D3 5000 UNIT TABS 1 PO daily CHOLECALCIFEROL 65431127253 Active Sarah Tidwell BYDUREON 2 MG SUSR 1 injection once a week EXENATIDE 94010469526 Active Sarah Tidwell ANDRODERM 4 MG/24HR PT24 apply once daily TESTOSTERONE 15643652434 Active Breonna Squires REQUIP 1 MG TABS 1 po at HS ROPINIROLE HCL 65810781617 No Longer Active Sarah Tidwell ALPRAZOLAM 0.25 MG TABS 1 po q 4-6 hrs prn ALPRAZOLAM 22268210415 No Longer Active Sarah Tidwell GABAPENTIN 300 MG CAPS 1 in morning, 1 at lunch, and 5 PO QHS GABAPENTIN 89161934194 Active Sarah Tidwell FISH OIL 1000 MG CAPS 2 po daily OMEGA-3 FATTY ACIDS 77118970851 Active Sarah Tidwell SEROQUEL XR 150 MG [id number] 1-2 tabs po at 5pm QUETIAPINE FUMARATE 89348950165 Active Sarah Tidwell TRAZODONE HCL 100 MG TABS 1 PO QHS TRAZODONE HCL 78621903507 No Longer Active Sarah Tidwell CYMBALTA 60 MG CPEP 2 PO daily DULOXETINE HCL 96137446921 Active Yuliana Ag RESTORIL 15 MG CAP 1 PO QHS prn TEMAZEPAM 45131786469 No Longer Active Sarah Tidwell CYMBALTA 30 MG CPEP 1 PO daily for 1 week then change to 60mg tablet once daily DULOXETINE HCL 01380055355 No Longer Active Sarah Tidwell MULTIVITAMINS TABS 1 PO QD MULTIPLE VITAMIN 58197982008 Active Sarah Tidwell ZOLOFT 100 MG TABS 1 PO daily SERTRALINE HCL 36297958579 No Longer Active Sarah Tidwell LOTENSIN 10 MG TAB 1 PO daily BENAZEPRIL HCL 26644700733 Active Yuliana gA EFFEXOR XR 75 MG CP24 1 PO daily VENLAFAXINE HCL 03307104830 No Longer Active Sarah Tidwell PEN NEEDLES 03/04" 31G X 8 MM MISC as directed with injection twice daily. DX: Diabetes INSULIN PEN NEEDLE 46390008807 Active Sarah Tidwell AUGMENTIN 500-125 MG TAB 1 PO BID AMOXICILLIN-POT CLAVULANATE 42337134084 No Longer Active Sarah SIMS'S NASAL SPRAY (DEXAMETHASONE, GENTAMICIN, SALINE) 2 puffs each nostril TID for [address] WILLS NASAL SPRAY ( DEXAMETHASONE, GENTAMICIN, SALINE) No Longer Active Sarah Tidwell ALPRAZOLAM 0.5 MG TABS 1 PO QHS ALPRAZOLAM 59371743134 No Longer Active Sarahmilana Tidwell AMBIEN CR 12.5 MG TBCR 1 po q HS ZOLPIDEM TARTRATE 49214194523 No Longer Active Sarah Tidwell BYETTA 10 MCG PEN 10 MCG/0.04ML SOLN 1 injection BID EXENATIDE 09786422337 No Longer Active Sarahmilana Tidwell [employer] ULTRA TEST STRP Check BS TID DX: DIABETES GLUCOSE BLOOD 99197491141 Active Nicole Arias EFFEXOR XR 37.5 MG CP24 1 PO daily for 7 days VENLAFAXINE HCL 74971946557 No Longer Active Sarah Tidwell ZOLOFT 100 MG TABS 1 PO daily SERTRALINE HCL 86161459146 No Longer Active Sarah Tidwell OMACOR 1 GM CAPS 3 PO daily for high triglycerides [id number] ETHYL ESTERS 20552211779 No Longer Active Sarah Tidwell AMARYL 4 MG TABS 1 PO daily GLIMEPIRIDE 71739257215 No Longer Active Sarah SIMS'Ivone NASAL SPRAY (DEXAMETHASONE, GENTAMICIN, SALINE) 2 puffs each nostril TID for [address] WILLS NASAL SPRAY ( DEXAMETHASONE, GENTAMICIN, SALINE) No Longer Active Sarah Tidwell AUGMENTIN 875-125 MG TAB 1 PO BID AMOXICILLIN-POT CLAVULANATE 30127896781 No Longer Active Sarah Tidwell AVANDIA 2 MG TABS 1 PO QD for diabetes ROSIGLITAZONE MALEATE 35679502095 No Longer Active Sarah Tidwell MIRA 180 MG TABS 1 PO QD for allergies FEXOFENADINE HCL Active Sarah Tidwell LUNESTA 3 MG TABS 1 po prn ESZOPICLONE 47476666378 No Longer Active Yuliana Ag GLUCOPHAGE XR 500 MG TB24 2 po daily METFORMIN HCL 39320818583 Active Sarah Tidwell CRESTOR 5 MG TABS 1 PO daily for cholesterol ROSUVASTATIN CALCIUM 87510837236 Active Yuliana Ag LUNESTA 2 MG 1 po QHS LUNESTA 2 MG No Longer Active Sarah Tidwell CORTISPORIN 0.5-0.5-88254 CREA apply to back of neck BID for 7d [id number] 61801863344 No Longer Active Sarah Tidwell KEFLEX 500 MG CAP 1 Po QID for 7 days CEPHALEXIN 90848719648 No Longer Active Sarah Tidwell KEFLEX 500 MG CAPS 1 PO QID CEPHALEXIN 98906295725 No Longer Active Sarah Tidwell CORTISPORIN 0.5-0.5-33196 CREA Apply to affected area posterior neck TID 2004 [id number] 61093511405 No Longer Active Sarah Tidwell AMOXIL 500 MG TABS BID for 7 days AMOXICILLIN 30315401914 No Longer Active Sarah Tidwell ASPIRIN 81 MG CHEW TAB 1 PO QD ASPIRIN 32226463389 Active Sarah Tidwell ZYRTEC-D 5-120 MG TB12 1 po q 12 hrs. CETIRIZINE- PSEUDOEPHEDRINE 75375722549 No Longer Active Sarah Tidwell Immunizations Vaccine [...] Value Unit Range Description Clinical Lists Update: CMP,Chol,Trig,HgA1c - Chemistry albumin, serum 4.1 g/dL bilirubin, serum, total 0.7 mg/dL alkaline phosphatase, serum 78 U/L potassium, serum 4.4 mmol/L urea nitrogen, blood 17 mg/dL triglyceride, serum, fasting 173 mg/dL calcium, serum 9.4 mg/dL protein, total, serum 6.5 g/dL chloride, serum 104 mmol/L glucose, plasma fasting 147 mg/dL cholesterol, serum 109 mg/dL aspartate aminotransferase (SGOT), serum 19 U/L carbon dioxide, venous blood 30.0 mmol/L sodium, serum 137 mmol/L creatinine, serum 1.4 mg/dL alanine aminotransferase (SGPT), serum 33 U/L Estimated Glomerular Filtration Rate (calc) 55 mL/min/1.73m2 hemoglobin A1C, blood, as % of total hemoglobin 8.6 % anion gap, serum 7 Clinical Lists Update: CMP,FLP,HgA1c - Chemistry urea nitrogen, blood 16 mg/dL alkaline phosphatase, serum 75 U/L calcium, serum 9.7 mg/dL chloride, serum 101 [...] percent 4.5 glucose, plasma fasting 121 mg/dL albumin, serum 4.2 g/dL Estimated Glomerular Filtration Rate (calc) 63 mL/min/1.73m2 Encounters Code Encounter Date Provider Facility CPT-68088 Ofc Vst, Est Level IV 20:26:15 CDT Sarah Tidwell DO, FACP CPT-80354 Ofc Vst, Est Level IV 12:57:00 CDT Sarah Tidwell DO, FACP CPT-53774 Ofc Vst, Est Level IV 16:50:31 CDT Sarah COLLIER [facility] CPT-48983 Ofc Vst, Est Level III 16:42:31 LAW WRITER Sarah Tidwell DO, FACP CPT-48648 Ofc Vst, Est Level IV 21:22:46 LAW WRITER Sarah Wiseman Tidwell, DO, FACP CPT-05460 Ofc Vst, Est Level III 21:17:37 CDT Sarah Tanesha Wiseman Tidwell, DO, FACP CPT-18609 Ofc Vst, Est Level III 13:46:44 CDT Sarah Tanesha Wiseman Tidwell, DO, FACP CPT-80051 Ofc Vst, Est Level III 15:31:19 CDT Sarah Tanesha Wiseman Tidwell, DO, FACP CPT-29127 Ofc Vst, Est Level III 15:42:13 LAW WRITER Sarah Tanesha Wiseman Tidwell, DO, FACP CPT-70696 Ofc Vst, Est Level IV 11:22:49 CDT Sarah Tanesha Wiseman Diann, DO, FACP CPT-08359 Ofc Vst, Est Level IV 11:33:36 CDT Sarah Tanesha Wiseman Tidwell, DO, FACP CPT-99946 Ofc Vst, Est Level IV 11:19:42 LAW WRITER Sarah Tanesha Wiseman Tidwell, DO, FACP CPT-80478 Ofc Vst, Est Level IV 10:56:54 CDT Sarahmilana Wiseman Diann, DO, FACP CPT-85692 Ofc Vst, Est Level IV 10:26:50 CDT Sarah Tanesha Wiseman Tidwell, DO, FACP CPT-72756 Ofc Vst, Est Level IV 09:48:46 LAW WRITER Sarah Tanesha Smith S Tidwell, DO, FACP CPT-39034 Ofc Vst, Est Level IV 10:10:00 LAW WRITER Sarah Tanesha Wiseman Tidwell, DO, FACP CPT-53823 Ofc Vst, Est Level IV 09:52:11 CDT Sarah Tanesha Wiseman Tidwell, DO, FACP CPT-68438 Ofc Vst, Est Level IV 09:34:58 CDT Sarah Tanesha Wiseman Diann, DO, FACP CPT-38495 Ofc Vst, Est Level III 17:03:52 LAW WRITER Sarah Wiseman Diann, DO, FACP CPT-04101 Ofc Vst, Est Level IV 09:28:00 LAW WRITER Sarahmilana Wiseman Diann, DO, FACP CPT-44304 Ofc Vst, Est Level V 11:08:12 CDT Sarah Tanesha Wiseman Diann, DO, FACP CPT-23217 Ofc Vst, Est Level IV 12:44:14 CDT Sarahmilana Wiseman Diann, DO, FACP CPT-10296 Ofc Vst, Est Level IV 09:43:11 CDT Sarah Tanesha Wiseman Diann, DO, FACP CPT-84256 Ofc Vst, Est Level III 10:32:15 CDT Sarahmilana Wiseman Diann, DO, FACP CPT-33241 Ofc Vst, Est Level IV 14:52:57 CDT Sarah Wiseman Diann, DO, FACP CPT-84431 Ofc Vst, Est Level IV 12:04:03 CDT Sarah Tanesha Wiseman Diann, DO, FACP CPT-10425 Ofc Vst, Est Level V 11:59:56 CDT Sarah Tanesha Wiseman Diann, DO, FACP CPT-33584 Ofc Vst, Est Level IV 17:11:53 CDT Sarahmilana Wiseman Diann, DO, FACP CPT-17305 Ofc Vst, Est Level IV 16:57:36 LAW WRITER Sarah Tanesha Wiseman Diann, DO, FACP CPT-98537 Ofc Vst, Est Level V 11:17:45 LAW WRITER Sarah Almendarez Tidwell Sarah Wiseman Diann, DO, FACP CPT-02517 Ofc Vst, Est Level IV 09:27:52 LAW WRITER Sarah Hensonner Sarah Ivone Diann, DO, FACP CPT-05097 Ofc Vst, Est Level IV 11:10:52 CDT Sarahmilana Hensonner Sarah Wiseman Diann, DO, FACP CPT-81143 Ofc Vst, Est Level IV 15:46:30 CDT Sarah Tanesha Diann Sarah Wiseman Diann, DO, FACP CPT-73729 Ofc Vst, Est Level IV 16:18:20 CDT Sarah Almendarez Diann Sarah Wiseman Diann, DO, FACP CPT-65825 Ofc Vst, Est Level V 17:06:31 LAW WRITER Sarah Almendarez Tidwell Sarah Wiseman Diann, DO, FACP CPT-79198 Ofc Vst, Est Level IV 17:58:03 CDT Sarahmilana Almendarez Diann Sarah Ivone Diann, DO, FACP CPT-06620 Ofc Vst, Est Level IV 09:25:46 CDT Sarah Tidwell [facility] [place] CPT-32492 Ofc Vst, Est Level IV 13:54:17 LAW WRITER Sarah Tidwell [facility] [place] CPT-59905 Ofc Vst, Est Level III 19:28:13 LAW WRITER Sarah Tidwell [facility] [place] CPT-45510 Ofc Vst, Est Level IV 15:50:57 LAW WRITER Sarah Tidwell [facility] [place] CPT-22452 Ofc Vst, Est Level IV 13:51:16 LAW WRITER Sarah Tidwell [facility] [place] CPT-75643 Ofc Vst, Est Level IV 09:58:27 CDT Sarah Tidwell [facility] [place] CPT-56936 Ofc Vst, Est Level IV 09:33:18 LAW WRITER Sarahmilana Tidwell [facility] [place] CPT-97073 Ofc Vst, Est Level III 09:35:19 LAW WRITER Sarah Taneshadevin Tidwell [facility] [place] CPT-67713 Ofc Vst, Est Level IV 09:54:59 LAW WRITER Sarah Tanesha Tidwell [facility] [place] CPT-49602 Ofc Vst, Est Level IV 09:41:01 CDT Sarah Taneshadevin Tidwell [facility] [place] CPT-34887 Ofc Vst, Est Level II 09:54:39 CDT Sarah Taneshadevin Tidwell [facility] [place] CPT-89566 Ofc Vst, Est Level IV 17:42:28 CDT Sarah Tanesha Tidwell [facility] [place] CPT-97150 Ofc Vst, Est Level III 17:52:28 LAW WRITER Sarah Tanesha Tidwell [facility] [place] CPT-96404 Ofc Vst, Est Level III 18:11:29 LAW WRITER Sarahmilana Tidwell [facility] [place] CPT-61622 Ofc Vst, Est Level IV 18:14:34 CDT Sarah Tanesha Tidwell [facility] [place] CPT-06025 Ofc Vst, Est Level IV 17:50:40 CDT Sarah Tanesha Tidwell [facility] [place] CPT-79186 Ofc Vst, Est Level III 12:36:34 CDT Sarah Tanesha Tidwell [facility] [place] CPT-42964 Ofc Vst, Est Level III 13:13:59 CDT Sarah Tanesha Tidwell [facility] [place] CPT-28096 Ofc Vst, New Level III 15:18:01 CDT Sarah Tanesha Tidwell [facility] [place] Procedures Code Procedure Name Date Entry Date Standard Description CPT-93421 Preventive, Est, (40-64) 12:36:08 CDT CPT-08175 Handling of specimen from office to lab 13:51:16 LAW WRITER
--- OUTSIDE RECORDS SUMMARY | 2017-02-23 13:38 | XMS REPORT | Clinical Summary ---
Author Author User, [employer] Organization [facility] [place] Address Unknown Phone Unavailable Allergies, Adverse Reactions, [...] sinusitis, unspecified WEIGHT GAIN, ABNORMAL 783.1 Resolved Saarh Tidwell Abnormal weight gain INSOMNIA, CHRONIC 780.52 [...] Bipolar disorder, unspecified HEALTH SCREENING V70.0 Resolved aSrah Tidwell Routine general medical examination at a [...] 2 puffs each nostril daily FLUTICASONE PROPIONATE 67201543672 Active Sarah Tidwell HUMALOG KWIKPEN 100 UNIT/ML SOPN 22 units before meals INSULIN LISPRO (HUMAN) 87534246056 Active Sarah Tidwell LANTUS SOLOSTAR 100 UNIT/ML SOLN 60 units Injection every night INSULIN GLARGINE 35555065817 Active Sarah Tidwell RETIN-A 0.01 % GEL Apply to affected area lower scalp every other day until resolved TRETINOIN 14143605511 No Longer Active Sarha Tidwell VITAMIN D3 5000 UNIT TABS 1 PO daily CHOLECALCIFEROL 33664676249 Active Sarah Tidwell BYDUREON 2 MG SUSR 1 injection once a week EXENATIDE 35257843833 Active Sarah Tidwell ANDRODERM 4 MG/24HR PT24 apply once daily TESTOSTERONE 44059516877 Active Breonna Squires REQUIP 1 MG TABS 1 po at HS ROPINIROLE HCL 63448890080 No Longer Active Sarah Tidwell ALPRAZOLAM 0.25 MG TABS 1 po q 4-6 hrs prn ALPRAZOLAM 82680654174 No Longer Active Sarah Tidwell GABAPENTIN 300 MG CAPS 1 in morning, 1 at lunch, and 5 PO QHS GABAPENTIN 45645646494 Active Sarah Tidwell FISH OIL 1000 MG CAPS 2 po daily OMEGA-3 FATTY ACIDS 69745616176 Active Sarah Tidwell SEROQUEL XR 150 MG [id number]-[id number] 1-2 tabs po at 5pm QUETIAPINE FUMARATE 54586648084 Active Sarah Tidwell TRAZODONE HCL 100 MG TABS 1 PO QHS TRAZODONE HCL 41056423288 No Longer Active Sarah Tidwell CYMBALTA 60 MG CPEP 2 PO daily DULOXETINE HCL 84598206266 Active Yuliana Ag RESTORIL 15 MG CAP 1 PO QHS prn TEMAZEPAM 89521758762 No Longer Active Sarah Tidwell CYMBALTA 30 MG CPEP 1 PO daily for 1 week then change to 60mg tablet once daily DULOXETINE HCL 35108211124 No Longer Active Sarah Tidwell MULTIVITAMINS TABS 1 PO QD MULTIPLE VITAMIN 19629317622 Active Sarah Tidwell ZOLOFT 100 MG TABS 1 PO daily SERTRALINE HCL 68406727308 No Longer Active Sarahmilana Tidwell LOTENSIN 10 MG TAB 1 PO daily BENAZEPRIL HCL 72156223843 Active Yuliana Ag EFFEXOR XR 75 MG CP24 1 PO daily VENLAFAXINE HCL 05467639430 No Longer Active Sarah Tidwell PEN NEEDLES /16" 31G X 8 MM MISC as directed with injection twice daily. DX: Diabetes INSULIN PEN NEEDLE 33703970175 Active Sarah Tidwell AUGMENTIN 500-125 MG TAB 1 PO BID AMOXICILLIN-POT CLAVULANATE 51452219623 No Longer Active Sarah SIMS'S NASAL SPRAY (DEXAMETHASONE, GENTAMICIN, SALINE) 2 puffs each nostril TID for [address] WILLS NASAL SPRAY ( DEXAMETHASONE, GENTAMICIN, SALINE) No Longer Active Sarah Tidwell ALPRAZOLAM 0.5 MG TABS 1 PO QHS ALPRAZOLAM 22188086537 No Longer Active Sarahmilana Tidwell AMBIEN CR 12.5 MG TBCR 1 po q HS ZOLPIDEM TARTRATE 83583211475 No Longer Active Sarah Tidwell BYETTA 10 MCG PEN 10 MCG/0.04ML SOLN 1 injection BID EXENATIDE 00605514462 No Longer Active Sarah Tidwell ONETOUCH ULTRA TEST STRP Check BS TID DX: DIABETES GLUCOSE BLOOD 68843257384 Active Nicole Arias EFFEXOR XR 37.5 MG CP24 1 PO daily for 7 days VENLAFAXINE HCL 99362571831 No Longer Active Sarah Tidwell ZOLOFT 100 MG TABS 1 PO daily SERTRALINE HCL 82412256855 No Longer Active Sarah Tidwell OMACOR 1 GM CAPS 3 PO daily for high triglycerides UESXP-0-HOYL ETHYL ESTERS 31768897463 No Longer Active Sarah Tidwell AMARYL 4 MG TABS 1 PO daily GLIMEPIRIDE 69844256230 No Longer Active Sarah SIMS'S NASAL SPRAY (DEXAMETHASONE, GENTAMICIN, SALINE) 2 puffs each nostril TID for [address] WILLS NASAL SPRAY ( DEXAMETHASONE, GENTAMICIN, SALINE) No Longer Active Sarah Tidwell AUGMENTIN 875-125 MG TAB 1 PO BID AMOXICILLIN-POT CLAVULANATE 24235129904 No Longer Active Sarah Tidwell AVANDIA 2 MG TABS 1 PO QD for diabetes ROSIGLITAZONE MALEATE 65422706937 No Longer Active Sarah Tidwell MIRA 180 MG TABS 1 PO QD for allergies FEXOFENADINE HCL Active Sarahmilana Tidwell LUNESTA 3 MG TABS 1 po prn ESZOPICLONE 47372008469 No Longer Active Yuliana [place] GLUCOPHAGE XR 500 MG TB24 2 po daily METFORMIN HCL 79349836849 Active Sarah Tidwell CRESTOR 5 MG TABS 1 PO daily for cholesterol ROSUVASTATIN CALCIUM 01252042734 Active Yuliana Ag LUNESTA 2 MG 1 po QHS LUNESTA 2 MG No Longer Active Sarahmilana Tidwell CORTISPORIN 0.5-0.5-70457 CREA apply to back of neck BID for 7d [id number] 37240505001 No Longer Active Sarah Tidwell KEFLEX 500 MG CAP 1 Po QID for 7 days CEPHALEXIN 47778962840 No Longer Active Sarah Tidwell KEFLEX 500 MG CAPS 1 PO QID CEPHALEXIN 60304483511 No Longer Active Sarah Tidwell CORTISPORIN 0.5-0.5-95916 CREA Apply to affected area posterior neck TID 2004 OPPAIFYR-[id number] 28149464782 No Longer Active Sarah Tidwell AMOXIL 500 MG TABS BID for 7 days AMOXICILLIN 28104161342 No Longer Active Sarah Tidwell ASPIRIN 81 MG CHEW TAB 1 PO QD ASPIRIN 33118557859 Active Sarah Tidwell ZYRTEC-D 5-120 MG TB12 1 po q 12 hrs. CETIRIZINE- PSEUDOEPHEDRINE 42675978030 No Longer Active Sarah Tidwell Immunizations Vaccine [...] mmol/L Encounters Code Encounter Date Provider Facility CPT-42467 Ofc Vst, Est Level IV 20:26:15 CDT Sarah Tidwell DO, FACP CPT-82932 Ofc Vst, Est Level IV 12:57:00 CDT Sarah Tidwell DO, FACP CPT-94000 Ofc Vst, Est Level IV 16:50:31 CDT Sarah Tidwell [facility] CPT-93104 Ofc Vst, Est Level III 16:42:31 PHOTOGRAPHY ASSISTANT Sarah Tidwell DO, FACP CPT-11005 Ofc Vst, Est Level IV 21:22:46 PHOTOGRAPHY ASSISTANT Sarah Tidwell DO, FACP CPT-49982 Ofc Vst, Est Level III 21:17:37 CDT Sarah Tidwell DO, FACP CPT-09366 Ofc Vst, Est Level III 13:46:44 CDT Sarah Tanesha Tidwell Sarah S Tidwell, DO, FACP CPT-82712 Ofc Vst, Est Level III 15:31:19 CDT Sarah Tanesha Wiseman Tidwell, DO, FACP CPT-21314 Ofc Vst, Est Level III 15:42:13 PHOTOGRAPHY ASSISTANT Sarah Tanesha Wiseman Diann, DO, FACP CPT-30336 Ofc Vst, Est Level IV 11:22:49 CDT Sarah Tanesha Wiseman Diann, DO, FACP CPT-88581 Ofc Vst, Est Level IV 11:33:36 CDT Sarah Tanesha Wiseman Diann, DO, FACP CPT-18519 Ofc Vst, Est Level IV 11:19:42 PHOTOGRAPHY ASSISTANT Sarahmilana Wiseman Diann, DO, FACP CPT-73940 Ofc Vst, Est Level IV 10:56:54 CDT Sarah Tanesha Wiseman Diann, DO, FACP CPT-28734 Ofc Vst, Est Level IV 10:26:50 CDT Sarah Tanesha Wiseman Diann, DO, FACP CPT-90400 Ofc Vst, Est Level IV 09:48:46 PHOTOGRAPHY ASSISTANT Sarah Wiseman Diann, DO, FACP CPT-46450 Ofc Vst, Est Level IV 10:10:00 PHOTOGRAPHY ASSISTANT Sarahmilana Wiseman Diann, DO, FACP CPT-29714 Ofc Vst, Est Level IV 09:52:11 CDT Sarahmilana Wiseman Diann, DO, FACP CPT-94843 Ofc Vst, Est Level IV 09:34:58 CDT Sarahmilana Wiseman Diann, DO, FACP CPT-15468 Ofc Vst, Est Level III 17:03:52 PHOTOGRAPHY ASSISTANT Sarah Tanesha Wiseman Diann, DO, FACP CPT-12844 Ofc Vst, Est Level IV 09:28:00 PHOTOGRAPHY ASSISTANT Sarah Wiseman Tidwell, DO, FACP CPT-48572 Ofc Vst, Est Level V 11:08:12 CDT Sarah Wiseman Tidwell, DO, FACP CPT-57581 Ofc Vst, Est Level IV 12:44:14 CDT Sarah Tanesha Wiseman Tidwell, DO, FACP CPT-97661 Ofc Vst, Est Level IV 09:43:11 CDT Sarah Tanesha Wiseman Tidwell, DO, FACP CPT-24157 Ofc Vst, Est Level III 10:32:15 CDT Sarah Wiseman Tidwell, DO, FACP CPT-86988 Ofc Vst, Est Level IV 14:52:57 CDT Sarahmilana Wiseman Tidwell, DO, FACP CPT-53541 Ofc Vst, Est Level IV 12:04:03 CDT Sarahmilana Wiseman Tidwell, DO, FACP CPT-01794 Ofc Vst, Est Level V 11:59:56 CDT Sarah Wiseman Tidwell, DO, FACP CPT-62358 Ofc Vst, Est Level IV 17:11:53 CDT Sarahmilana Wiseman Tidwell, DO, FACP CPT-75504 Ofc Vst, Est Level IV 16:57:36 PHOTOGRAPHY ASSISTANT Sarah Wiseman Tidwell, DO, FACP CPT-41562 Ofc Vst, Est Level V 11:17:45 PHOTOGRAPHY ASSISTANT Sarah Wiseman Tidwell, DO, FACP CPT-99489 Ofc Vst, Est Level IV 09:27:52 PHOTOGRAPHY ASSISTANT Sarah Wiseman Tidwell, DO, FACP CPT-58033 Ofc Vst, Est Level IV 11:10:52 CDT Sarah Tanesha Diann Smith Ivone Diann, DO, FACP CPT-26577 Ofc Vst, Est Level IV 15:46:30 CDT Sarah Tanesha Diann Estrellai S Tidwell, DO, FACP CPT-46288 Ofc Vst, Est Level IV 16:18:20 CDT Sarah Taneshadevin Tidwell, DO, FACP CPT-75591 Ofc Vst, Est Level V 17:06:31 PHOTOGRAPHY ASSISTANT Sarah Tanesha Diann Estrellai S Diann, DO, FACP CPT-86762 Ofc Vst, Est Level IV 17:58:03 CDT Sarah Tanesha Diann Tidwell, DO, FACP CPT-68558 Ofc Vst, Est Level IV 09:25:46 CDT Sarahmilana Tidwell [facility] [place] CPT-70547 Ofc Vst, Est Level IV 13:54:17 PHOTOGRAPHY ASSISTANT Sarah Tidwell [facility] [place] CPT-55086 Ofc Vst, Est Level III 19:28:13 PHOTOGRAPHY ASSISTANT Sarah Tidwell [facility] [place] CPT-73213 Ofc Vst, Est Level IV 15:50:57 PHOTOGRAPHY ASSISTANT Sarah Tidwell [facility] [place] CPT-73823 Ofc Vst, Est Level IV 13:51:16 PHOTOGRAPHY ASSISTANT Sarah Tidwell [facility] [place] CPT-19845 Ofc Vst, Est Level IV 09:58:27 CDT Sarah Tidwell [facility] [place] CPT-78114 Ofc Vst, Est Level IV 09:33:18 PHOTOGRAPHY ASSISTANT Sarah Tidwell [facility] [place] CPT-44272 Ofc Vst, Est Level III 09:35:19 PHOTOGRAPHY ASSISTANT Sarah Tidwell [facility] [place] CPT-82654 Ofc Vst, Est Level IV 09:54:59 PHOTOGRAPHY ASSISTANT Sarah Tidwell [facility] [place] CPT-67627 Ofc Vst, Est Level IV 09:41:01 CDT Sarah Taneshadevin Tidwell [facility] [place] CPT-08706 Ofc Vst, Est Level II 09:54:39 CDT Sarah Tanesha Tidwell [facility] [place] CPT-77675 Ofc Vst, Est Level IV 17:42:28 CDT Sarah Tanesha Tidwell [facility] [place] CPT-04887 Ofc Vst, Est Level III 17:52:28 PHOTOGRAPHY ASSISTANT Sarah Tanesha Tidwell [facility] [place] CPT-54945 Ofc Vst, Est Level III 18:11:29 PHOTOGRAPHY ASSISTANT Sarah Tanesha Tidwell [facility] [place] CPT-98794 Ofc Vst, Est Level IV 18:14:34 CDT Sarah Tanesha Tidwell [facility] [place] CPT-07562 Ofc Vst, Est Level IV 17:50:40 CDT Sarah Tanesha Tidwell [facility] [place] CPT-99121 Ofc Vst, Est Level III 12:36:34 CDT Sarah Tanesha Tidwell [facility] [place] CPT-57793 Ofc Vst, Est Level III 13:13:59 CDT Sarah Tanesha Tidwell [facility] [place] CPT-23043 Ofc Vst, New Level III 15:18:01 CDT Sarah Tanesha Tidwell [facility] [place] Procedures Code Procedure Name Date Entry Date Standard Description CPT-82555 Preventive, Est, (40-64) 12:36:08 CDT CPT-98880 Handling of specimen from office to lab 13:51:16 PHOTOGRAPHY ASSISTANT
--- OUTSIDE RECORDS SUMMARY | 2017-02-23 13:39 | XMS REPORT | Clinical Summary ---
Author Author User, [facility] Address Unknown Phone Unavailable Allergies, Adverse Reactions, [...] Tidwell Acute sphenoidal sinusitis HYPERTENSION 401.1 Active Saarh Tidwell Benign essential hypertension HYPERCHOLESTEROLEMIA 272.0 Active [...] SOPN 22 UNITS BEFORE MEALS INSULIN ASPART 19023271480 Active Yuliana [place] FLUTICASONE PROPIONATE 50 MCG/ACT SUSP 2 puffs each nostril daily FLUTICASONE PROPIONATE 18638289558 Active Sarah Tidwell HUMALOG KWIKPEN 100 UNIT/ML SOPN 22 units before meals INSULIN LISPRO (HUMAN) 20386163491 No Longer Active Sarah Tidwell LANTUS SOLOSTAR 100 UNIT/ML SOLN 60 units Injection every night INSULIN GLARGINE 92438450500 Active Sarah Tidwell RETIN-A 0.01 % GEL Apply to affected area lower scalp every other day until resolved TRETINOIN 67216477926 No Longer Active Sarah Tidwell VITAMIN D3 5000 UNIT TABS 1 PO daily CHOLECALCIFEROL 30218289316 Active Sarah Tidwell BYDUREON 2 MG SUSR 1 injection once a week EXENATIDE 97901793945 Active Sarah Tidwell ANDRODERM 4 MG/24HR PT24 apply once daily TESTOSTERONE 56597715959 Active Breonna Squires REQUIP 1 MG TABS 1 po at HS ROPINIROLE HCL 28675426984 No Longer Active Sarah Tidwell ALPRAZOLAM 0.25 MG TABS 1 po q 4-6 hrs prn ALPRAZOLAM 00749475967 No Longer Active Sarah Tidwell GABAPENTIN 300 MG CAPS 1 in morning, 1 at lunch, and 5 PO QHS GABAPENTIN 89726838964 Active Sarah Tidwell FISH OIL 1000 MG CAPS 2 po daily OMEGA-3 FATTY ACIDS 38513779953 Active Sarah Tidwell SEROQUEL XR 150 MG [id number] 1-2 tabs po at 5pm QUETIAPINE FUMARATE 02902164874 Active Sarah Tidwell TRAZODONE HCL 100 MG TABS 1 PO QHS TRAZODONE HCL 21748404704 No Longer Active Sarah Tidwell CYMBALTA 60 MG CPEP 2 PO daily DULOXETINE HCL 19448120871 Active Yuliana Ag RESTORIL 15 MG CAP 1 PO QHS prn TEMAZEPAM 25714047264 No Longer Active Sarah Tidwell CYMBALTA 30 MG CPEP 1 PO daily for 1 week then change to 60mg tablet once daily DULOXETINE HCL 27125080251 No Longer Active Sarah Tidwell MULTIVITAMINS TABS 1 PO QD MULTIPLE VITAMIN 42529602128 Active Sarah Tidwell ZOLOFT 100 MG TABS 1 PO daily SERTRALINE HCL 65567876115 No Longer Active Sarah Tidwell LOTENSIN 10 MG TAB 1 PO daily BENAZEPRIL HCL 76332806848 Active Yuliana Ag EFFEXOR XR 75 MG CP24 1 PO daily VENLAFAXINE HCL 82423235969 No Longer Active Sarah Tdiwell PEN NEEDLES 03/04" 31G X 8 MM MISC as directed with injection twice daily. DX: Diabetes INSULIN PEN NEEDLE 49545691320 Active Sarah Tidwell AUGMENTIN 500-125 MG TAB 1 PO BID AMOXICILLIN-POT CLAVULANATE 60584891141 No Longer Active Sarah SIMS'S NASAL SPRAY (DEXAMETHASONE, GENTAMICIN, SALINE) 2 puffs each nostril TID for [address] WILLS NASAL SPRAY ( DEXAMETHASONE, GENTAMICIN, SALINE) No Longer Active Sarah Tanesha Tidwell ALPRAZOLAM 0.5 MG TABS 1 PO QHS ALPRAZOLAM 67860354262 No Longer Active Sarahmilana Tidwell AMBIEN CR 12.5 MG TBCR 1 po q HS ZOLPIDEM TARTRATE 47800766348 No Longer Active Sarah Tidwell BYETTA 10 MCG PEN 10 MCG/0.04ML SOLN 1 injection BID EXENATIDE 03872617365 No Longer Active Sarah Tidwell ONETOUCH ULTRA TEST STRP Check BS TID DX: DIABETES GLUCOSE BLOOD 50226532901 Active Nicole Arias EFFEXOR XR 37.5 MG CP24 1 PO daily for 7 days VENLAFAXINE HCL 80595858037 No Longer Active Sarah Tidwell ZOLOFT 100 MG TABS 1 PO daily SERTRALINE HCL 69260565782 No Longer Active Sarah Tidwell OMACOR 1 GM CAPS 3 PO daily for high triglycerides [id number]-7-[id number] ETHYL ESTERS 51099601834 No Longer Active Sarah Tidwell AMARYL 4 MG TABS 1 PO daily GLIMEPIRIDE 50887654282 No Longer Active Sarah WILLS NASAL SPRAY (DEXAMETHASONE, GENTAMICIN, SALINE) 2 puffs each nostril TID for [address] WILLS NASAL SPRAY ( DEXAMETHASONE, GENTAMICIN, SALINE) No Longer Active Sarah Tidwell AUGMENTIN 875-125 MG TAB 1 PO BID AMOXICILLIN-POT CLAVULANATE 78234861595 No Longer Active Sarah Tidwell AVANDIA 2 MG TABS 1 PO QD for diabetes ROSIGLITAZONE MALEATE 40782470038 No Longer Active Sarah Tidwell MIRA 180 MG TABS 1 PO QD for allergies FEXOFENADINE HCL Active Sarah Tidwell LUNESTA 3 MG TABS 1 po prn ESZOPICLONE 64415821874 No Longer Active Yuliana Ag GLUCOPHAGE XR 500 MG TB24 2 po daily METFORMIN HCL 69652315840 Active Sarah Tidwell CRESTOR 5 MG TABS 1 PO daily for cholesterol ROSUVASTATIN CALCIUM 42276232108 Active Yuliana Ag LUNESTA 2 MG 1 po QHS LUNESTA 2 MG No Longer Active Sarahmilana Tidwell CORTISPORIN 0.5-0.5-40603 CREA apply to back of neck BID for 7d [id number]-[id number]-GC 97817551696 No Longer Active Sarah Tidwell KEFLEX 500 MG CAP 1 Po QID for 7 days CEPHALEXIN 28523816040 No Longer Active Sarah Tidwell KEFLEX 500 MG CAPS 1 PO QID CEPHALEXIN 99062027812 No Longer Active Sarah Tidwell CORTISPORIN 0.5-0.5-03972 CREA Apply to affected area posterior neck TID 2004 [id number]-SVONOBCOI-KZ 77603392887 No Longer Active Sarah Tidwell AMOXIL 500 MG TABS BID for 7 days AMOXICILLIN 43635058250 No Longer Active Sarah Tidwell ASPIRIN 81 MG CHEW TAB 1 PO QD ASPIRIN 08008901534 Active Sarah Tidwell ZYRTEC-D 5-120 MG TB12 1 po q 12 hrs. CETIRIZINE- PSEUDOEPHEDRINE 04724330326 No Longer Active Sarah Tidwell Immunizations Vaccine [...] mmol/L Encounters Code Encounter Date Provider Facility CPT-89427 Ofc Vst, Est Level IV 20:26:15 CDT Sarah Tidwell DO, FACP CPT-39828 Ofc Vst, Est Level IV 12:57:00 CDT Sarah Tidwell DO, FACP CPT-50360 Ofc Vst, Est Level IV 16:50:31 CDT Sarah Tidwell [facility] CPT-84713 Ofc Vst, Est Level III 16:42:31 GROUP HOME WORKER Sarah Tidwell DO, FACP CPT-85379 Ofc Vst, Est Level IV 21:22:46 GROUP HOME WORKER Sarah Tidwell DO, FACP CPT-38910 Ofc Vst, Est Level III 21:17:37 CDT Sarah Tanesha Tdiwell Sarah S Tidwell, DO, FACP CPT-79604 Ofc Vst, Est Level III 13:46:44 CDT Sarah Tanesha Wiseman Diann, DO, FACP CPT-56536 Ofc Vst, Est Level III 15:31:19 CDT Sarah Tanesha Wiseman Diann, DO, FACP CPT-45250 Ofc Vst, Est Level III 15:42:13 GROUP HOME WORKER Sarha Taensha Wiseman Diann, DO, FACP CPT-88530 Ofc Vst, Est Level IV 11:22:49 CDT Sarah Tanesha Wiseman Diann, DO, FACP CPT-58529 Ofc Vst, Est Level IV 11:33:36 CDT Sarah Tanesha Wiseman Diann, DO, FACP CPT-51473 Ofc Vst, Est Level IV 11:19:42 GROUP HOME WORKER Sarah Tanesha Wiseman Diann, DO, FACP CPT-36977 Ofc Vst, Est Level IV 10:56:54 CDT Sarah Tanesha Wiseman Diann, DO, FACP CPT-93078 Ofc Vst, Est Level IV 10:26:50 CDT Sarahmilana Wiseman Diann, DO, FACP CPT-64248 Ofc Vst, Est Level IV 09:48:46 GROUP HOME WORKER Sarah Tanesha Wiseman Diann, DO, FACP CPT-00663 Ofc Vst, Est Level IV 10:10:00 GROUP HOME WORKER Sarah Wiseman Diann, DO, FACP CPT-85307 Ofc Vst, Est Level IV 09:52:11 CDT Sarahmilana Wiseman Diann, DO, FACP CPT-71964 Ofc Vst, Est Level IV 09:34:58 CDT Sarah Tanesha Wiseman Diann, DO, FACP CPT-97614 Ofc Vst, Est Level III 17:03:52 GROUP HOME WORKER Sarah Wiseman Tidwell, DO, FACP CPT-32378 Ofc Vst, Est Level IV 09:28:00 GROUP HOME WORKER Sarah Tanesha Wiseman Tidwell, DO, FACP CPT-95670 Ofc Vst, Est Level V 11:08:12 CDT Sarah Tanesha Wiseman Tidwell, DO, FACP CPT-71035 Ofc Vst, Est Level IV 12:44:14 CDT Sarah Tanesha Wiseman Tidwell, DO, FACP CPT-77882 Ofc Vst, Est Level IV 09:43:11 CDT Sarah Tanesha Wiseman Tidwell, DO, FACP CPT-46455 Ofc Vst, Est Level III 10:32:15 CDT Sarah Tanesha Wiseman Diann, DO, FACP CPT-22556 Ofc Vst, Est Level IV 14:52:57 CDT Sarah Tanesha Wiseman Tidwell, DO, FACP CPT-71320 Ofc Vst, Est Level IV 12:04:03 CDT Sarahmilana Wiseman Tidwell, DO, FACP CPT-23019 Ofc Vst, Est Level V 11:59:56 CDT Sarah Tanesha Wiseman Diann, DO, FACP CPT-60924 Ofc Vst, Est Level IV 17:11:53 CDT Sarah Tanesha Wiseman Tidwell, DO, FACP CPT-22935 Ofc Vst, Est Level IV 16:57:36 GROUP HOME WORKER Sarah Tanesha Wiseman Tidwell, DO, FACP CPT-68771 Ofc Vst, Est Level V 11:17:45 GROUP HOME WORKER Sarah Tanesha Wiseman Diann, DO, FACP CPT-56546 Ofc Vst, Est Level IV 09:27:52 GROUP HOME WORKER Sarah Tanesha Diann Tidwell, DO, FACP CPT-54288 Ofc Vst, Est Level IV 11:10:52 CDT Sarah Tanesha Diann Tidwell, DO, FACP CPT-22857 Ofc Vst, Est Level IV 15:46:30 CDT Sarah Tanesha Diann Tidwlel, DO, FACP CPT-42436 Ofc Vst, Est Level IV 16:18:20 CDT Sarah Tanesha Diann Sarah Ivone Diann, DO, FACP CPT-70217 Ofc Vst, Est Level V 17:06:31 GROUP HOME WORKER Sarah Almendarez Diann Tidwell, DO, FACP CPT-75478 Ofc Vst, Est Level IV 17:58:03 CDT Sarah Tanesha Diann Tidwell, DO, FACP CPT-59193 Ofc Vst, Est Level IV 09:25:46 CDT Sarahmilana Tidwell [facility] CPT-78679 Ofc Vst, Est Level IV 13:54:17 GROUP HOME WORKER Sarah Tidwell [facility] CPT-21155 Ofc Vst, Est Level III 19:28:13 GROUP HOME WORKER Sarah Tidwell [facility] CPT-59317 Ofc Vst, Est Level IV 15:50:57 GROUP HOME WORKER Sarah Tidwell [facility] CPT-89358 Ofc Vst, Est Level IV 13:51:16 GROUP HOME WORKER Sarah Tidwell [facility] CPT-28969 Ofc Vst, Est Level IV 09:58:27 CDT Sarah Tidwell [facility] CPT-98650 Ofc Vst, Est Level IV 09:33:18 GROUP HOME WORKER Sarah Tidwell [facility] CPT-97274 Ofc Vst, Est Level III 09:35:19 GROUP HOME WORKER Sarah Tidwell [facility] CPT-94211 Ofc Vst, Est Level IV 09:54:59 GROUP HOME WORKER Sarah Taneshadevin Tidwell [facility] CPT-25756 Ofc Vst, Est Level IV 09:41:01 CDT Sarah Taneshadevin Tidwell [facility] CPT-97824 Ofc Vst, Est Level II 09:54:39 CDT Sarah Tanesha Tidwell [facility] CPT-50632 Ofc Vst, Est Level IV 17:42:28 CDT Sarah Taneshadevin Tidwell [facility] CPT-28113 Ofc Vst, Est Level III 17:52:28 GROUP HOME WORKER Sarah Tanesha Tidwell [facility] CPT-75032 Ofc Vst, Est Level III 18:11:29 GROUP HOME WORKER Sarah Tanesha Tidwell [facility] CPT-81089 Ofc Vst, Est Level IV 18:14:34 CDT Sarah Tanesha Tidwell [facility] CPT-17603 Ofc Vst, Est Level IV 17:50:40 CDT Sarah Taneshadevin Tidwell [facility] CPT-18384 Ofc Vst, Est Level III 12:36:34 CDT Sarah Tanesha Tidwell [facility] CPT-85984 Ofc Vst, Est Level III 13:13:59 CDT Sarah Taneshadevin Tidwell [facility] CPT-85256 Ofc Vst, New Level III 15:18:01 CDT Sarah Taneshadevin Tidwell [facility] Procedures Code Procedure Name Date Entry Date Standard Description CPT-82523 Preventive, Est, (40-64) 12:36:08 CDT CPT-73015 Handling of specimen from office to lab 13:51:16 GROUP HOME WORKER
== END 2017-01-21 12:30 | disposition home or self-care (01) ==
LOC: ENDO 08:50
PROVIDERS: ATTEND Surgery
DX: K60.2 Anal fissure, unspecified (principal); Z86.010 Personal history of colon polyps
CPT/HCPCS: 82962

== ENCOUNTER → 2020-02-13 | Outpatient (CLI) | payer BC ==
[~2020-02-13] MED LIST changes: -BENA10TA2 PO; +BENA10TA66 PO; -DULO60CA58 PO; +DULO60CA59 PO; +INSU300I SQ; +METF500T19 PO; -METF500T8 PO
[2020-02-13 14:47] LABS: BASOPHILS % (AUTO) 0 % (0-10); EOSINOPHILS # (AUTO) 0.1 10^3/uL (0.0-0.3); EOSINOPHILS % (AUTO) 2 % (0-10); HEMATOCRIT 42 % (40-54); HEMOGLOBIN 15.1 G/DL (13.3-17.7); LYMPHOCYTES # (AUTO) 1.9 X 10^3 (1.0-4.0); LYMPHOCYTES % (AUTO) 28 % (12-44); MEAN CORPUSCULAR HEMOGLOBIN 31 PG (25-34); MEAN CORPUSCULAR HGB CONC 36 G/DL (32-36); MEAN CORPUSCULAR VOLUME 87 FL (80-99); MEAN PLATELET VOLUME 11.8 FL (7.4-10.4); MONOCYTES # (AUTO) 0.6 X 10^3 (0.0-1.0); MONOCYTES % (AUTO) 8 % (0-12); NEUTROPHILS # (AUTO) 4.4 X 10^3 (1.8-7.8); NEUTROPHILS % (AUTO) 62 % (42-75); PLATELET COUNT 196 10^3/uL (130-400); RED CELL DISTRIBUTION WIDTH 13.2 % (10.0-14.5)
[2020-02-13 15:06] LABS: ALANINE AMINOTRANSFERASE 53 U/L (0-55); ALBUMIN 4.1 GM/DL (3.2-4.5); ALKALINE PHOSPHATASE 88 U/L (40-136); BILIRUBIN,TOTAL 0.7 MG/DL (0.1-1.0); BUN/CREATININE RATIO 10; CALCIUM 9.2 MG/DL (8.5-10.1); CARBON DIOXIDE 21 MMOL/L (21-32); CHLORIDE 104 MMOL/L (98-107); CREATININE SERUM 1.53 MG/DL (0.60-1.30); GFR ESTIMATED 46; GLUCOSE 397 MG/DL (70-105); SODIUM 137 MMOL/L (135-145); TOTAL PROTEIN 6.3 GM/DL (6.4-8.2)
[2020-02-13 15:12] LABS: CREATINE KINASE MB 1.6 NG/ML (<6.6)
== END ==
LOC: LAB 14:31
PROVIDERS: ATTEND Urology
DX: R07.9 Chest pain, unspecified (principal); R06.02 Shortness of breath; R05 Cough
CPT/HCPCS: 36415; 80053; 82553; 84484; 85025; 86141; 86738

== ENCOUNTER → 2020-03-27 | Outpatient (CLI) | payer BC ==
[~2020-03-27] MED LIST changes: +METF-865 PO; -METF500T19 PO
--- NOTE | 2020-03-27 15:24 | Diagnostic Imaging Report ---
INDICATION: Arthritis COMPARISON: None available TECHNIQUE: 6 radiographs of the bilateral hands dated 03/27/2020. FINDINGS: Left: No acute fracture or dislocation. No destructive osseous process. Minimal scattered degenerative changes with minimal joint space narrowing involving scattered interphalangeal joints. Carpal alignment is well-maintained. No significant erosive changes. No suspicious radiopaque foreign body. Right: No acute fracture or dislocation. No destructive osseous process. Chronic ulnar styloid avulsion fracture. Degenerative geode within the scaphoid. Mild scattered degenerative changes with minimal joint space narrowing involving scattered interphalangeal joints. Carpal alignment is well-maintained. Scapholunate distance is within normal limits. No suspicious radiopaque foreign body. IMPRESSION: No acute osseous abnormality with minimal degenerative changes for age. Dictated by: Dictated on workstation # [id number]
--- NOTE | 2020-03-27 15:26 | Diagnostic Imaging Report ---
INDICATION: Arthritis COMPARISON: None available TECHNIQUE: 6 radiographs of the bilateral feet dated 03/27/2020 FINDINGS: Left: No acute fracture or dislocation. No destructive osseous process. Minimal scattered degenerative changes, greatest involving the 1st MTP joint where there is mild joint space narrowing. The Lisfranc joint is well aligned. Tiny plantar calcaneal enthesophytes. Right: No acute fracture or dislocation. No destructive osseous process. Minimal scattered degenerative changes, greatest involving the 1st MTP joint where there is minimal joint space narrowing and minimal osteophytosis. The Lisfranc joint is well aligned. No suspicious radiopaque foreign body. IMPRESSION: No acute osseous abnormality with minimal degenerative changes for age, greatest involving the 1st MTP joints. Dictated by: Dictated on workstation # [id number]
== END ==
LOC: RAD 10:00
PROVIDERS: ATTEND Internal Medicine
DX: M19.072 Primary osteoarthritis, left ankle and foot (principal); M19.071 Primary osteoarthritis, right ankle and foot; M19.041 Primary osteoarthritis, right hand; M19.042 Primary osteoarthritis, left hand

== ENCOUNTER 2020-07-13 16:48 | Observation (INO) | payer BC ==
[~2020-07-13] VITALS: Ht 175.3 cm; Wt 84.8 kg
[2020-07-13] MEDS ORDERED: NS IV 1000 ML 1,000 ML IV SCH (17:09)
[2020-07-13] MEDS ORDERED: ASPIRIN E.C. 81 MG (ECOTRIN) TAB PO NR (17:15)
[2020-07-13] MEDS ORDERED: ENOXAPARIN 40 MG/0.4 ML (LOVENOX) SYR SC SCH (17:15)
[2020-07-13 17:26] VITALS: BP 140/86
[2020-07-13] MEDS ORDERED: CATHETER FLUSH 10 ML SYR IV PRN (17:30)
[2020-07-13 17:32] LABS: BASOPHILS # (AUTO) 0.1 10^3/uL (0.0-0.1); BASOPHILS % (AUTO) 1 % (0-10); EOSINOPHILS # (AUTO) 0.2 10^3/uL (0.0-0.3); EOSINOPHILS % (AUTO) 2 % (0-10); HEMATOCRIT 43 % (40-54); LYMPHOCYTES # (AUTO) 2.8 10^3/uL (1.0-4.0); LYMPHOCYTES % (AUTO) 34 % (12-44); MEAN CORPUSCULAR HEMOGLOBIN 31 pg (25-34); MEAN CORPUSCULAR HGB CONC 35 g/dL (32-36); MEAN CORPUSCULAR VOLUME 87 fL (80-99); MEAN PLATELET VOLUME 10.4 fL (9.0-12.2); MONOCYTES # (AUTO) 0.6 10^3/uL (0.0-1.0); MONOCYTES % (AUTO) 8 % (0-12); NEUTROPHILS # (AUTO) 4.5 10^3/uL (1.8-7.8); NEUTROPHILS % (AUTO) 55 % (42-75); PLATELET COUNT 230 10^3/uL (130-400); WHITE BLOOD COUNT 8.2 10^3/uL (4.3-11.0)
[2020-07-13 17:45] LABS: ALBUMIN 4.3 GM/DL (3.2-4.5)
[2020-07-13 17:46] LABS: CHLORIDE 105 MMOL/L (98-107); POTASSIUM 5.6 MMOL/L (3.6-5.0); SODIUM 135 MMOL/L (135-145)
[2020-07-13 17:47] LABS: CALCIUM 9.9 MG/DL (8.5-10.1)
[2020-07-13 17:48] LABS: GLUCOSE 176 MG/DL (70-105); TOTAL PROTEIN 7.3 GM/DL (6.4-8.2)
[2020-07-13 17:49] LABS: CARBON DIOXIDE 20 MMOL/L (21-32)
[2020-07-13 17:50] LABS: BILIRUBIN,TOTAL 0.4 MG/DL (0.1-1.0)
[2020-07-13 17:51] LABS: ALKALINE PHOSPHATASE 87 U/L (40-136)
[2020-07-13 17:52] LABS: CREATININE SERUM 1.54 MG/DL (0.60-1.30); GFR ESTIMATED 46
[2020-07-13 17:53] LABS: BUN/CREATININE RATIO 14
[2020-07-13 17:54] LABS: ALANINE AMINOTRANSFERASE 50 U/L (0-55)
--- NOTE | 2020-07-13 18:30 | NUR ---
Ted Monty admitted to room 430-1, with an admitting diagnosis of chest pain, on 07/13/20 from [facility] , accompanied by .TED LOPEZ introduced to surroundings, call light, bed controls, phone, TV, temperature control, lights, meal times, smoking policy, visitor policy, side rail policy, bathrooms and showers. Patient Rights given to patient in the handbook.TED LOPEZ verbalizes understanding that [facility] is not responsible for the loss or damage to any personal effects or valuables that are kept in the patients posession during their hospitalization. TED LOPEZ verbalizes understanding of Interdisciplinary Patient Education. Patient and/or family were informed about the Rapid Response Team and its purpose.
[2020-07-13] MEDS ORDERED: FLU QUADRIvalent (3YOA+) 60 mcg/0.5 ml 2020-21 (AFLURIA) IM ONE (19:00)
[2020-07-13 20:00] VITALS: BP 146/78
[2020-07-13] MEDS ORDERED: ZOLPIDEM 5 MG (AMBIEN) TAB PO SCH (21:00)
[2020-07-13] MEDS ORDERED: QUEtiapine 100 MG (SEROquel) TAB IMMEDIATE RELEASE PO SCH (21:00)
[2020-07-13] MEDS ORDERED: ACETAMINOPHEN 500 MG TAB (TYLENOL) PO PRN (21:15)
[2020-07-13] MEDS ORDERED: guaiFENesin/CODEINE (ROBITUSSIN AC) 10ML UDC PO PRN (21:15)
[2020-07-13] MEDS ORDERED: ALPRAZolam 0.25 MG (XANAX) TAB PO PRN (21:15)
[2020-07-13] MEDS ORDERED: diphenhydrAMINE 25 MG TAB (BENADRYL) PO PRN (21:15)
[2020-07-13] MEDS ORDERED: MELATONIN 3 MG TABLET PO PRN (21:15)
[2020-07-13] MEDS ORDERED: ONDANSETRON 4 MG/2 ML (SDV) Z0FRAN IVP PRN (21:15)
[2020-07-13] MEDS ORDERED: CALCIUM CARBONATE 500 MG (TUMS) TAB.CHEW PO PRN (21:15)
[2020-07-13] MEDS ORDERED: DOCUSATE SODIUM 100 MG (COLACE) CAP PO PRN (21:15)
[2020-07-13] MEDS ORDERED: HYDROcodone/APAP 5 MG/325 MG (LORTAB) TAB PO PRN (21:15)
[2020-07-13] MEDS: NS IV 1000 ML 1,000 ML IV SCH (21:28)
[2020-07-14] VITALS: BP 119/72
[2020-07-14 00:34] LABS: BILIRUBIN,URINE NEGATIVE (NEGATIVE); CLARITY,URINE CLEAR; COLOR,URINE ORANGE; GLUCOSE, URINE (UA) 2+ (NEGATIVE); KETONES,URINE NEGATIVE (NEGATIVE); LEUKOCYTE ESTERASE ,URINE NEGATIVE (NEGATIVE); NITRITE,URINE NEGATIVE (NEGATIVE); PROTEIN,URINE NEGATIVE (NEGATIVE)
[2020-07-14 00:53] LABS: BACTERIA,URINE NEGATIVE /HPF; SQUAMOUS EPITHELIAL CELL,UR RARE /HPF
[2020-07-14 04:00] VITALS: BP 141/79
[2020-07-14] MEDS: NS IV 1000 ML 1,000 ML IV SCH ×2 (04:26→13:59)
[2020-07-14] MEDS: inSUlin ASPART (NovoLOG) 1 UNIT/0.01 ML (CHARGE PER UNIT) SC SCH ×3 (05:40→16:14)
[2020-07-14 06:29] LABS: BASOPHILS % (AUTO) 1 % (0-10); EOSINOPHILS # (AUTO) 0.2 10^3/uL (0.0-0.3); EOSINOPHILS % (AUTO) 3 % (0-10); HEMATOCRIT 40 % (40-54); HEMOGLOBIN 13.9 g/dL (13.3-17.7); LYMPHOCYTES # (AUTO) 3.2 10^3/uL (1.0-4.0); LYMPHOCYTES % (AUTO) 45 % (12-44); MEAN CORPUSCULAR HEMOGLOBIN 30 pg (25-34); MEAN CORPUSCULAR HGB CONC 35 g/dL (32-36); MEAN CORPUSCULAR VOLUME 88 fL (80-99); MEAN PLATELET VOLUME 10.7 fL (9.0-12.2); MONOCYTES # (AUTO) 0.5 10^3/uL (0.0-1.0); MONOCYTES % (AUTO) 8 % (0-12); NEUTROPHILS # (AUTO) 3.1 10^3/uL (1.8-7.8); NEUTROPHILS % (AUTO) 43 % (42-75); PLATELET COUNT 190 10^3/uL (130-400); WHITE BLOOD COUNT 7.1 10^3/uL (4.3-11.0)
[2020-07-14 06:32] LABS: CHLORIDE 108 MMOL/L (98-107)
[2020-07-14 06:33] LABS: ALBUMIN 3.7 GM/DL (3.2-4.5); POTASSIUM 4.4 MMOL/L (3.6-5.0); SODIUM 135 MMOL/L (135-145)
[2020-07-14 06:34] LABS: CALCIUM 8.6 MG/DL (8.5-10.1)
[2020-07-14 06:35] LABS: TOTAL PROTEIN 6.3 GM/DL (6.4-8.2); TRIGLYCERIDES 343 MG/DL (<150); VLDL CHOLESTEROL 69 MG/DL (5-40)
[2020-07-14 06:36] LABS: CARBON DIOXIDE 19 MMOL/L (21-32); GLUCOSE 156 MG/DL (70-105)
[2020-07-14 06:37] LABS: BILIRUBIN,TOTAL 0.5 MG/DL (0.1-1.0)
[2020-07-14 06:39] LABS: ALKALINE PHOSPHATASE 77 U/L (40-136); CREATININE SERUM 1.24 MG/DL (0.60-1.30); GFR ESTIMATED 59
[2020-07-14 06:40] LABS: BUN/CREATININE RATIO 16; CHOLESTEROL 156 MG/DL (< 200)
[2020-07-14 06:41] LABS: HDL CHOLESTEROL 20 MG/DL (40-60)
[2020-07-14 06:42] LABS: ALANINE AMINOTRANSFERASE 41 U/L (0-55)
[2020-07-14 08:00] VITALS: BP 131/74
[2020-07-14] MEDS ORDERED: QUET150T3 PO (08:29)
[2020-07-14] MEDS ORDERED: ZOLP10TA PO (08:29)
[2020-07-14] MEDS ORDERED: SENNA W/DOCUSATE (SENOKOT S) TABLET PO SCH (09:00)
[2020-07-14] MEDS ORDERED: ASPIRIN E.C. 81 MG (ECOTRIN) TAB PO SCH (09:00)
[2020-07-14] MEDS ORDERED: LIDOCAINE 1% INJ 20 ML 20 ML VIAL ONE (09:49)
[2020-07-14] MEDS ORDERED: HEParin (CATH LAB) 2,000 ML IV ONE (09:49)
--- NOTE | 2020-07-14 10:36 | NUR ---
SPOKE WITH THE PT, WENT THRU THE EXT MED HISTORY, CALLED DINAH AND DR. FRAGOSO OFFICE TO COMPLETE THE MED REC ROSUVASTATIN 5MG WAS LAST FILLED 03-14-2020 #30/30DS BENAZEPRIL 10MG LAST FILLED 03-14-2020 #90/90DS NOVOLOG FLEX PENS LAST FILLED 02-17-2020 #5 PENS THE PAST DUE FILL DATES WERE INCLUDED ON THE MED REC FOR THE MEDICATIONS LISTED ABOVE ALL OTHER MEDICATIONS HAVE GOOD DATING AND SHOW ON THE EXT MED HISTORY PT DENIES TAKING ANY OTC MEDICATIONS
[2020-07-14 12:00] VITALS: BP 131/74
--- NOTE | 2020-07-14 12:19 | History & Physical-Hospitalist ---
LION PASCUAL MED STUDENT 07/14/20 1219: History of Present Illness HPI/Chief Complaint CC: Chest pain/Syncopal episodes HPI: Joe is a 64yo male admitted directly from clinic for chest pain/syncope. About 2 weeks ago he noticed that he felt lightheaded/faint with moderate exertion. Currently denies pain. No prior history of syncope. Source: patient Exam Limitations: no limitations Date Seen 07/14/20 Time Seen by a Provider: 10:15 Attending Physician Sarah Tidwell DO PCP Sarah Tidwell DO Referring Physician Date of Admission Jul 13, 2020 at 17:00 Home Medications & Allergies Home Medications Reviewed patient Home Medication Reconciliation performed by pharmacy medication reconciliations patient service technician pst and/or nursing. Patients Allergies have been reviewed. 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) Recreational Drug Use: No Smoking Status: Never a Smoker Physical Abuse Screen: No Sexual Abuse: No Recent Foreign Travel: No Contact w/other who traveled: No Recent Hopitalizations: No Recent Infectious Disease Expo: No Immunizations Up To Date Pediatric: Yes Date of Influenza Vaccine: Jul 20, 2014 Seasonal Allergies Seasonal Allergies: Yes Past Medical History Surgeries: Cystectomy (2 weeks ago) Currently Using CPAP: No Currently Using BIPAP: No Cardiac: High Cholesterol Neurological: Neuropathy Reproductive: No Sexually Transmitted Disease: No Genitourinary: Kidney Stones Musculoskeletal: Degenerate Disk Disease Endocrine: Diabetes, Insulin dep Are Your Blood Sugars Over 250: No History of Blood Disorders: No Adverse Reaction to Blood Bynum: No Family History Reviewed Nursing Family Hx Completed stroke 19 MOTHER Diabetes mellitus 19 MOTHER Heart Disease Review of Systems Constitutional: no symptoms reported EENTM: no symptoms reported Respiratory: no symptoms reported Cardiovascular: no symptoms reported Gastrointestinal: no symptoms reported Genitourinary: no symptoms reported Musculoskeletal: no symptoms reported Skin: no symptoms reported Psychiatric/Neurological: Numbness (distal extremies), Tingling (distal extremities) All Other Systems Reviewed Negative Unless Noted: Yes Physical Exam Physical Exam Vital Signs Vital Signs - First Documented 07/13/20 17:26 Temp 36.1 Pulse 74 Resp 18 B/P (MAP) 140/86 Pulse Ox 98 O2 Delivery Room Air Capillary Refill : Less Than 3 Seconds Height, Weight, BMI Height: 5'10.00" Weight: 189lbs. 0.0oz. 85.587169uv; 27.59 BMI Method: General Appearance: No Apparent Distress, WD/WN Eyes: Bilateral Eye Normal Inspection, Bilateral Eye PERRL, Bilateral Eye EOMI HEENT: PERRL/EOMI, Normal ENT Inspection, Pharynx Normal Neck: Full Range of Motion, Normal Inspection, Non Tender Respiratory: Chest Non Tender, Lungs Clear, Normal Breath Sounds, No Accessory Muscle Use, No Respiratory Distress Cardiovascular: Regular Rate, Rhythm, No Edema, No Gallop, No JVD, No Murmur, Normal Peripheral Pulses Gastrointestinal: Normal Bowel Sounds, No Organomegaly, No Pulsatile Mass, Non Tender, Soft Back: Normal Inspection Extremity: Normal Capillary Refill, Normal Inspection, Normal Range of Motion, Non Tender Neurologic/Psychiatric: Alert, Oriented x3, Normal Mood/Affect, Sensory Deficit (numbness/tingling to distal extremities) Skin: Normal Color, Warm/Dry Lymphatic: No Adenopathy Results Results/Procedures Labs Laboratory Tests 07/13/20 17:20 07/14/20 05:55 Patient resulted labs reviewed. Imaging: Reviewed Imaging Films Assessment/Plan Admission Diagnosis Chest pain Admission Status: Observation Assessment and Plan Assessment: Near-syncope Dehydration IDDM Plan: Monitor for chest pain/syncope IV fluids NPO status Echo and Cardiac cath today D/C later today pending results Diagnosis/Problems Diagnosis/Problems (1) Diabetes Status: Chronic Clinical Quality Measures DVT/VTE Risk/Contraindication: Risk Factor Score Per Nursin RFS Level Per Nursing on Admit: 2=Moderate ASRAH TIDWELL DO 07/15/20 0618: Past Vsipxic-Cakjxi-Gnxpau Hx Past Med/Social Hx: Reviewed Nursing Past Med/Soc Hx, Reviewed and Corrections made Patient Social History Alcohol Use: Denies Use Smoking Status: Never a Smoker Past Medical History Cardiac: High Cholesterol, Hypertension Neurological: Neuropathy Genitourinary: Benign Prostatic Hyperpl, Bladder Infection, Kidney Stones, Renal Failure Endocrine: Diabetes, Insulin dep Psychosocial: Anxiety, Bipolar Family History Completed stroke 19 MOTHER Diabetes mellitus 19 MOTHER Review of Systems Constitutional: see HPI Cardiovascular: chest pain Physical Exam Physical Exam General Appearance: No Apparent Distress Eyes: Right Eye Normal Inspection, Right Eye PERRL HEENT: PERRL/EOMI, TMs Normal, Normal ENT Inspection, Pharynx Normal, Moist Mucous Membranes Neck: Full Range of Motion, Normal Inspection, Non Tender Respiratory: Chest Non Tender, Lungs Clear, Normal Breath Sounds, No Accessory Muscle Use, No Respiratory Distress Cardiovascular: Regular Rate, Rhythm, No Edema, No Gallop, No JVD, No Murmur, Normal Peripheral Pulses Gastrointestinal: Normal Bowel Sounds, No Organomegaly, No Pulsatile Mass, Non Tender, Soft Back: Normal Inspection, No CVA Tenderness, No Vertebral Tenderness Extremity: Normal Capillary Refill, Normal Inspection, Normal Range of Motion, Non Tender, No Calf Tenderness, No Pedal Edema Neurologic/Psychiatric: Alert, Oriented x3, No Motor/Sensory Deficits, Normal Mood/Affect Skin: Normal Color, Warm/Dry Lymphatic: No Adenopathy Assessment/Plan Admission Diagnosis Assessment: Unstable angina new onset DM HTN HLP Plan: Supportive care Cardiology consult Admission Status: Observation Diagnosis/Problems Diagnosis/Problems (1) Chest pain (2) Diabetes Status: Chronic Supervisory-Addendum Brief Verification & Attestation Participated in pt care: history, MDM, physical Personally performed: exam, history, MDM, supervision of care Care discussed with: Medical Student Procedures: n/a Results interpretation: Verified all documentation Verification and Attestation of Medical Student E/M Service A medical student performed and documented this service in my presence. I reviewed and verified all information documented by the medical student and made modifications to such information, when appropriate. I personally performed the physical exam and medical decision making. Sarah Tidwell, Jul 15, 2020,06:16 [facility] MED STUDENT Jul 14, 2020 12:19 SARAH TIDWELL DO Jul 15, 2020 06:18
[2020-07-14] MEDS ORDERED: fentaNYL INJECTION 100 MCG/2 ML AMP ONE (13:16)
[2020-07-14] MEDS ORDERED: MIDAZOLAM 5 MG/5 ML (VERSED) VIAL ONE (13:16)
[2020-07-14] MEDS ORDERED: NS IV 1000 ML 1,000 ML ONE (13:19)
[2020-07-14] MEDS ORDERED: VERAPAMIL 5 MG/2 ML (CALAN) VIAL IV ONE (13:52)
[2020-07-14] MEDS ORDERED: NITRO DRIP 25000 MCG/D5W 250 ML IV ONE (13:52)
[2020-07-14] MEDS ORDERED: HEParin 1000 UNIT/ML (10ML VIAL) FOR BOLUS ONE (13:52)
--- NOTE | 2020-07-14 14:38 | Consultation-Cardiology ---
HPI-Cardiology Cardiology Consultation: Date of Consultation 07/14/20 Date of Admission Attending Physician Sarah Tidwell DO Admitting Physician Sarah Tidwell DO Consulting Physician Julia ADAME MD HPI: Time Seen by a Provider: 09:00 Chief Complaint: Chest pain, near-syncope This is a 64-year-old gentleman who is a patient of Dr. Tidwell. He has history of diabetes. Hypertension, hyperlipidemia. Denies active smoking. Family history is positive for stroke. He presented with prolonged episode of chest pain, recurrent. Substernal. No radiation. Mild to moderate intensity. 5/10. No shortness of breath associated with the discomfort. History of near syncope, dizziness with moderate exertion. Review of Systems-Cardiology Review of Systems Constitutional: As described under HPI; No As described under HPI, No no symptoms reported, No chills, No fever, No lightheadedness Eyes: No As described under HPI, No no symptoms reported, No blindness, No blurred vision, No contact lenses, No drainage, No decreased acuity, No foreign body sensation, No pain, No vision change Ears/Nose/Throat: No As described under HPI, No no symptoms reported, No chronic hearing loss, No ear discharge, No ear pain, No nasal drainage, No ulcerations Respiratory: No no symptoms reported; As described under HPI; No As described under HPI, No cough, No orthopnea, No shortness of breath, No SOB with excertion Cardiovascular: No no symptoms reported; As described under HPI; No As descr ibed under HPI; chest pain; No edema, No irregular heart rate, No lightheadedness, No palpitations; syncope Gastrointestinal: No no symptoms reported, No As described under HPI, No abdomen distended, No abdominal pain, No blood streaked bowels, No constipation, No diarrhea, No nausea, No vomiting, No stool coloration changes Genitourinary: No As described under HPI, No burning, No dysuria, No discharge, No frequency, No flank pain, No hematuria, No urgency Skin: No rash, No skin related problems, No ulcerations Psychiatric/Neurological: No anxiety, No depression, No seizure, No focal weakness, No syncope Hematologic: No bleeding abnormalities All Other Systems Reviewed Negative Unless Noted: Yes [id number] Hx Patient Social History Marrital Status: Number of Children: 3 Number of living children: 3 Employed/Student: unemployed (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 Family Medical History Family History: Completed stroke 19 MOTHER Diabetes mellitus 19 MOTHER Allergies and Home Medications Allergies Coded Allergies: NKANo Known Allergies (Unverified Allergy, Mild, 07/16/09) Home Medications Benazepril HCl 10 Mg Tablet, 10 MG PO DAILY, (Reported) LAST FILLED 03-14-2020 #90/90 DAY SUPPLY Duloxetine HCl 60 Mg Capsule.dr, 120 MG PO DAILY, (Reported) TAKES 2 (60MG) CAPS Insulin Aspart 300 Units/3 Ml Solution, 30 UNITS SQ AC, (Reported) LAST FILLED 02-17-2020 #5 PENS/17 DAY SUPPLY Insulin Glargine,Hum.rec.anlog 300 Unit/1 Ml Insuln.pen, 100 UNIT SQ HS, (Reported) Metformin HCl 500 Mg Tab.er.24h, 1,000 MG PO DAILY, (Reported) TAKES 2 (1000MG) TABS Quetiapine Fumarate 150 Mg Tab.er.24h, 150 MG PO HS, (Reported) Rosuvastatin Calcium 5 Mg Tablet, 5 MG PO DAILY, (Reported) LAST FILLED 03-14-2020 #30 Zolpidem Tartrate 10 Mg Tablet, 10 MG PO HS, (Reported) Patient Home Medication List Home Medication List Reviewed: Yes Physical Exam-Cardiology Physical Exam Vital Signs/I&O 07/14/20 07/14/20 07/14/20 07/14/20 04:00 07:00 08:00 08:40 Temp 36.0 35.8 Pulse 74 65 65 Resp 18 16 B/P (MAP) 141/79 (99) 131/74 (93) Pulse Ox 100 99 O2 Delivery Room Air Room Air Room Air 07/14/20 07/14/20 12:00 12:42 Temp 36.1 Pulse 65 61 Resp 18 B/P (MAP) 131/74 (93) Pulse Ox 100 O2 Delivery Room Air 07/14/20 00:00 Intake Total 1100 ml Output Total 0 ml Balance 1100 ml Capillary Refill : Less Than 3 Seconds Constitutional: appears stated age, AAO x 3; No apparent distress; well- developed, well-nourished HEENT: PERRL; No discharge; hearing is well preserved, oral hygience is good; No ulceration, No xanthelasmas are seen Neck: No carotid bruit; carotid pulses are 2 + bilaterally Respiratory: chest is bilaterally symmetric, lungs clear to auscultation Cardiovascular: regular rate-rhythm, S1 and S2; No diastolic murmur, No systolic murmur Gastrointestinal: soft, audible bowel sounds; No spleenomegaly Rectal: deferred Extremities: normal range of motion, non-tender, normal inspection; No clubbing, No cyanosis; no lower extremity edema bilateral; No significant edema Neurologic/Psychiatric: no motor/sensory deficits, alert, normal mood/affect, oriented x 3, power is 5/5 both on sides Skin: normal color, warm/dry; No rash, No ulcerations Data Review Labs Laboratory Tests 07/13/20 17:20: White Blood Count 8.2, Red Blood Count 4.90, Hemoglobin 15.0, Hematocrit 43, Mean Corpuscular Volume 87, Mean Corpuscular Hemoglobin 31, Mean Corpuscular Hemoglobin Concent 35, Red Cell Distribution Width 11.9, Platelet Count 230, Mean Platelet Volume 10.4, Immature Granulocyte % (Auto) 1, Neutrophils (%) (Auto) 55, Lymphocytes (%) (Auto) 34, Monocytes (%) (Auto) 8, Eosinophils (%) (Auto) 2, Basophils (%) (Auto) 1, Neutrophils # (Auto) 4.5, Lymphocytes # (Auto) 2.8, Monocytes # (Auto) 0.6, Eosinophils # (Auto) 0.2, Basophils # (Auto) 0.1, Immature Granulocyte # (Auto) 0.1, Sodium Level 135, Potassium Level 5.6H, Chloride Level 105, Carbon Dioxide Level 20L, Anion Gap 10, Blood Urea Nitrogen 22H, Creatinine 1.54H, Estimat Glomerular Filtration Rate 46, BUN/Creatinine Ratio 14, Glucose Level 176H, Calcium Level 9.9, Corrected Calcium 9.7, Total Bi lirubin 0.4, Aspartate Amino Transf (AST/SGOT) 35H, Alanine Aminotransferase (ALT/SGPT) 50, Alkaline Phosphatase 87, Troponin I < 0.028, Total Protein 7.3, Albumin 4.3, Thyroid Stimulating Hormone (TSH) 1.00 9/24/20 23:00: Troponin I < 0.028 07/14/20 00:26: Urine Color ORANGE, Urine Clarity CLEAR, Urine pH 6.0, Urine Specific [place] >=1.030, Urine Protein NEGATIVE, Urine Glucose (UA) 2+H, Urine Ketones NEGATIVE, Urine Nitrite NEGATIVE, Urine Bilirubin NEGATIVE, Urine Urobilinogen 0.2, Urine Leukocyte Esterase NEGATIVE, Urine RBC (Auto) NEGATIVE, Urine RBC NONE, Urine WBC NONE, Urine Squamous Epithelial Cells RARE, Urine Crystals NONE, Urine Bacteria NEGATIVE, Urine Casts NONE, Urine Mucus NEGATIVE, Urine Culture Indicated NO 07/14/20 05:35: Glucometer 147H 07/14/20 05:55: White Blood Count 7.1, Red Blood Count 4.57, Hemoglobin 13.9, Hematocrit 40, Mean Corpuscular Volume 88, Mean Corpuscular Hemoglobin 30, Mean Corpuscular Hemoglobin Concent 35, Red Cell Distribution Width 12.0, Platelet Count 190, Mean Platelet Volume 10.7, Immature Granulocyte % (Auto) 1, Neutrophils (%) (Auto) 43, Lymphocytes (%) (Auto) 45H, Monocytes (%) (Auto) 8, Eosinophils (%) (Auto) 3, Basophils (%) (Auto) 1, Neutrophils # (Auto) 3.1, Lymphocytes # (Auto) 3.2, Monocytes # (Auto) 0.5, Eosinophils # (Auto) 0.2, Basophils # (Auto) 0.0, Immature Granulocyte # (Auto) 0.0, Sodium Level 135, Potassium Level 4.4, Chloride Level 108H, Carbon Dioxide Level 19L, Anion Gap 8, Blood Urea Nitrogen 20H, Creatinine 1.24, Estimat Glomerular Filtration Rate 59, BUN/Creatinine Ratio 16, Glucose Level 156H, Calcium Level 8.6, Corrected Calcium 8.8, Total Bilirubin 0.5, Aspartate Amino Transf (AST/SGOT) 27, Alanine Aminotransferase (ALT/SGPT) 41, Alkaline Phosphatase 77, Troponin I < 0.028, Total Protein 6.3L, Albumin 3.7, Triglycerides Level 343H, Cholesterol Level 156, LDL Cholesterol Direct 94, VLDL Cholesterol 69H, HDL Cholesterol 20L 07/14/20 12:05: Glucometer 169H ECG Impression ECG Initial ECG Rhythm: Normal Sinus Initial ECG Impression: Normal A/P-Cardiology Assessment/Admission Diagnosis Chest pain, Near syncope, Diabetes, Hypertension, Hyperlipidemia, Acute kidney injury Plan Chest pain, serial troponin negative. EKG negative. Due to diabetes and other risk factors for CAD, I have recommended coronary angiography for prolonged episode of chest discomfort. Informed consent was taken. 1 percent risk of complication including was discussed. The patient accepted all risks and complication and will like to proceed with coronary angiography and possible intervention. Near syncope, echocardiogram. Diabetes, deferred to Dr. Tidwell. Hypertension, continue ELLIOTT inhibitor. Hyperlipidemia, continue rosuvastatin. Acute kidney injury, improved with IV hydration. Likely due to dehydration. Thank you for your consultation. Please call me if you have any questions. Tavo Adame MD, FACP, FACC, FSCAI, FHRS, CCDS Interventional Cardiology Cardiac Electrophysiology Vascular Medicine and Endovascular Interventions Clinical Quality Measures DVT/VTE Risk/Contraindication: Risk Factor Score Per Nursin RFS Level Per Nursing on Admit: 2=Moderate Julia ADAME MD Jul 14, 2020 14:38
--- NOTE | 2020-07-14 14:39 | Cardiac Procedure Note-CS/ASA ---
Pre-Procedure Note Pre-Op Procedure Note H&P Reviewed The H&P was reviewed, patient examined and no changes noted. Date H&P Reviewed: Jul 14, 2020 Time H&P Reviewed: 09:00 Conscious Sedation Pre-Proced Time 09:00 ASA Score 3 For ASA 3 and 4: Consider anesthesia and medical clearance. Also, for patients with a history of failed moderate sedation consider anesthesia. Airway Lungs Heart ASA score ASA 1: a normal healthy patient ASA 2: a patient with a mild systemic disease (mid diabetes, controlled hypertension, obesity ASA 3: a patient with a severe systemic disease that limits activity (angina, COPD, prior Myocardial infarction) ASA 4: a patient with an incapacitating disease that is a constant threat to life (CHF, renal failure) ASA 5: a moribund patient not expected to survive 24 hrs. (ruptured aneurysm) ASA 6: a declared brain- patient whose organs are being harvested. For emergent operations, add the letter E after the classification Mallampati Classification Grade 1 Sedation Plan Analgesia, Amnesia, Plan communicated to team members, Discussed options with patient/fam, Discussed risks with patient/fam The patient is an appropriate candidate to undergo the planned procedure, sedation, and anesthesia. The patient immediately re-assessed prior to indication. Julia SOTO MD Jul 14, 2020 14:39
--- NOTE | 2020-07-14 14:42 | Coronary Angiography Report ---
Coronary Angiography Report DATE OF PROCEDURE: 07/14/20 INDICATION: Chest pain, diabetes. PREOPERATIVE DIAGNOSIS: Chest pain, diabetes. POSTOPERATIVE DIAGNOSIS: Mild CAD. HISTORY: 64-year-old gentleman with diabetes, hypertension, hyperlipidemia who presents with prolonged episode of chest pain. Negative troponin, negative EKG. Therefore, the patient was scheduled for coronary angiography. PROCEDURES PERFORMED: 1.Coronary angiography. 2.Left heart catheterization. 3. Aortic arch angiogram: Medical necessity: To rule out aneurysm or dissection in a patient with prolonged chest pain and mild CAD. COMPLICATIONS: None. SPECIMENS: None. ESTIMATED BLOOD LOSS: 10 mL ANESTHESIA: Conscious sedation ANTICOAGULATION: IV heparin CONTRAST: 50 mL. FLUOROSCOPY: 4 minutes. FLOUROSCOPY DOSE: 229 mgy. PROCEDURE DETAILS: The patient is a 64 male and was brought to the clinical laboratory science professor after informed consent was taken. All the risks and complications were explained in detail; this included the risk of bleeding, vascular damage, stroke, [place] and even . The patient was draped and prepped in the usual sterile fashion. Access was gained in the right radial artery with a 6 Sinhala sheath. Coronary angiography and left heart catheterization was performed with the [place] catheter. FINDINGS: 1.Left main: Patent. 2.LAD: Mild mid disease. 3.Left circumflex artery: Patent. 4.RCA: Small nondominant RCA. No stenosis. 5.Left heart catheterization: LV pressure 139/7 mmHg. LVEDP 16 mmHg. Aortic pressure 128/72 mmHg. No gradient across the aortic valve. Normal LV function with no wall motion abnormalities. 6. Aortic arch angiogram: No evidence of proximal aneurysm or dissection. Patent proximal segments of great arteries. CONCLUSIONS: Mild CAD. Normal LV function with mild elevation of LVEDP. Continue secondary prevention measures. Tavo Adame MD, FACP, FACC, [facility] Interventional Cardiology Julia ADAME MD Jul 14, 2020 14:42
[2020-07-14] MEDS ORDERED: NS IV 1000 ML 1,000 ML IV SCH (14:43)
[2020-07-14 14:45] VITALS: BP 148/72
[2020-07-14] MEDS ORDERED: PATIENT MAY USE OWN MEDS, ALL PO SCH (14:45)
[2020-07-14] MEDS ORDERED: ASPI-1238 PO (14:52)
--- NOTE | 2020-07-14 14:52 | Discharge Summary ---
Diagnosis/Chief Complaint Date of Admission Jul 13, 2020 at 17:00 Date of Discharge Discharge Date: Jul 14, 2020 Discharge Diagnosis Chest pain with normal cath Syncope due to dehydration and ARF DM Discharge Summary Discharge Physical Examination Allergies: Coded Allergies: JARETANo Known Allergies (Unverified Allergy, Mild, 07/16/09) Vitals & I&Os Vital Signs Date Time Temp Pulse Resp B/P (MAP) Pulse Ox O2 Delivery O2 Flow Rate FiO2 07/14/20 16:00 36.4 65 18 155/83 (107) 100 Room Air General Appearance: Alert, Oriented X3, Cooperative Hospital Course Was the Problem List Reviewed?: Yes Admitted for CP with risk factors of ACS. Troponin negative. IVF given for dehydration. Cardiology consulted and obtained ECHO and performed cath which revaled patent coronary arteries. DC home. Labs (last 24 hrs) Laboratory Tests 07/13/20 17:20: White Blood Count 8.2, Red Blood Count 4.90, Hemoglobin 15.0, Hematocrit 43, Mean Corpuscular Volume 87, Mean Corpuscular Hemoglobin 31, Mean Corpuscular Hemoglobin Concent 35, Red Cell Distribution Width 11.9, Platelet Count 230, Mean Platelet Volume 10.4, Immature Granulocyte % (Auto) 1, Neutrophils (%) (Auto) 55, Lymphocytes (%) (Auto) 34, Monocytes (%) (Auto) 8, Eosinophils (%) (Auto) 2, Basophils (%) (Auto) 1, Neutrophils # (Auto) 4.5, Lymphocytes # (Auto) 2.8, Monocytes # (Auto) 0.6, Eosinophils # (Auto) 0.2, Basophils # (Auto) 0.1, Immature Granulocyte # (Auto) 0.1, Sodium Level 135, Potassium Level 5.6H, Chloride Level 105, Carbon Dioxide Level 20L, Anion Gap 10, Blood Urea Nitrogen 22H, Creatinine 1.54H, Estimat Glomerular Filtration Rate 46, BUN/Creatinine Ratio 14, Glucose Level 176H, Calcium Level 9.9, Corrected Calcium 9.7, Total Bilirubin 0.4, Aspartate Amino Transf (AST/SGOT) 35H, Alanine Aminotransferase (ALT/SGPT) 50, Alkaline Phosphatase 87, Troponin I < 0.028, Total Protein 7.3, Albumin 4.3, Thyroid Stimulating Hormone (TSH) 1.00 07/13/20 23:00: Troponin I < 0.028 07/14/20 00:26: Urine Color ORANGE, Urine Clarity CLEAR, Urine pH 6.0, Urine Specific [place] >=1.030, Urine Protein NEGATIVE, Urine Glucose (UA) 2+H, Urine Ketones NEGATIVE, Urine Nitrite NEGATIVE, Urine Bilirubin NEGATIVE, Urine Urobilinogen 0.2, Urine Leukocyte Esterase NEGATIVE, Urine RBC (Auto) NEGATIVE, Urine RBC NONE, Urine WBC NONE, Urine Squamous Epithelial Cells RARE, Urine Crystals NONE, Urine Bacteria NEGATIVE, Urine Casts NONE, Urine Mucus NEGATIVE, Urine Culture Indicated NO 07/14/20 05:35: Glucometer 147H 07/14/20 05:55: White Blood Count 7.1, Red Blood Count 4.57, Hemoglobin 13.9, Hematocrit 40, Mean Corpuscular Volume 88, Mean Corpuscular Hemoglobin 30, Mean Corpuscular Hemoglobin Concent 35, Red Cell Distribution Width 12.0, Platelet Count 190, Mean Platelet Volume 10.7, Immature Granulocyte % (Auto) 1, Neutrophils (%) (Auto) 43, Lymphocytes (%) (Auto) 45H, Monocytes (%) (Auto) 8, Eosinophils (%) (Auto) 3, Basophils (%) (Auto) 1, Neutrophils # (Auto) 3.1, Lymphocytes # (Auto) 3.2, Monocytes # (Auto) 0.5, Eosinophils # (Auto) 0.2, Basophils # (Auto) 0.0, Immature Granulocyte # (Auto) 0.0, Sodium Level 135, Potassium Level 4.4, Chloride Level 108H, Carbon Dioxide Level 19L, Anion Gap 8, Blood Urea Nitrogen 20H, Creatinine 1.24, Estimat Glomerular Filtration Rate 59, BUN/Creatinine Ratio 16, Glucose Level 156H, Calcium Level 8.6, Corrected Calcium 8.8, Total Bilirubin 0.5, Aspartate Amino Transf (AST/SGOT) 27, Alanine Aminotransferase (ALT/SGPT) 41, Alkaline Phosphatase 77, Troponin I < 0.028, Total Protein 6.3L, Albumin 3.7, Triglycerides Level 343H, Cholesterol Level 156, LDL Cholesterol Direct 94, VLDL Cholesterol 69H, HDL Cholesterol 20L 07/14/20 12:05: Glucometer 169H 07/14/20 15:50: Glucometer 131H Pending Labs Laboratory Tests 07/13/20 17:20: White Blood Count 8.2, Red Blood Count 4.90, Hemoglobin 15.0, Hematocrit 43, Mean Corpuscular Volume 87, Mean Corpuscular Hemoglobin 31, Mean Corpuscular Hemoglobin Concent 35, Red Cell Distribution Width 11.9, Platelet Count 230, Mean Platelet Volume 10.4, Immature Granulocyte % (Auto) 1, Neutrophils (%) (Auto) 55, Lymphocytes (%) (Auto) 34, Monocytes (%) (Auto) 8, Eosinophils (%) (Auto) 2, Basophils (%) (Auto) 1, Neutrophils # (Auto) 4.5, Lymphocytes # (Auto) 2.8, Monocytes # (Auto) 0.6, Eosinophils # (Auto) 0.2, Basophils # (Auto) 0.1, Immature Granulocyte # (Auto) 0.1, Sodium Level 135, Potassium Level 5.6, Chloride Level 105, Carbon Dioxide Level 20, Anion Gap 10, Blood Urea Nitrogen 22, Creatinine 1.54, Estimat Glomerular Filtration Rate 46, BUN/Creatinine Ratio 14, Glucose Level 176, Calcium Level 9.9, Corrected Calcium 9.7, Total Bilirubin 0.4, Aspartate Amino Transf (AST/SGOT) 35, Alanine Aminotransferase (ALT/SGPT) 50, Alkaline Phosphatase 87, Troponin I < 0.028, Total Protein 7.3, Albumin 4.3, Thyroid Stimulating Hormone (TSH) 1.00 07/13/20 23:00: Troponin I < 0.028 07/14/20 00:26: Urine Color ORANGE, Urine Clarity CLEAR, Urine pH 6.0, Urine Specific [place] >=1.030, Urine Protein NEGATIVE, Urine Glucose (UA) 2+, Urine Ketones NEGATIVE, Urine Nitrite NEGATIVE, Urine Bilirubin NEGATIVE, Urine Urobilinogen 0.2, Urine Leukocyte Esterase NEGATIVE, Urine RBC (Auto) NEGATIVE, Urine RBC NONE, Urine WBC NONE, Urine Squamous Epithelial Cells RARE, Urine Crystals NONE, Urine Bacteria NEGATIVE, Urine Casts NONE, Urine Mucus NEGATIVE, Urine Culture Indicated NO 07/14/20 05:35: Glucometer 147 07/14/20 05:55: White Blood Count 7.1, Red Blood Count 4.57, Hemoglobin 13.9, Hematocrit 40, Mean Corpuscular Volume 88, Mean Corpuscular Hemoglobin 30, Mean Corpuscular Hemoglobin Concent 35, Red Cell Distribution Width 12.0, Platelet Count 190, Mean Platelet Volume 10.7, Immature Granulocyte % (Auto) 1, Neutrophils (%) (Auto) 43, Lymphocytes (%) (Auto) 45, Monocytes (%) (Auto) 8, Eosinophils (%) (Auto) 3, Basophils (%) (Auto) 1, Neutrophils # (Auto) 3.1, Lymphocytes # (Auto) 3.2, Monocytes # (Auto) 0.5, Eosinophils # (Auto) 0.2, Basophils # (Auto) 0.0, Immature Granulocyte # (Auto) 0.0, Sodium Level 135, Potassium Level 4.4, Chlori de Level 108, Carbon Dioxide Level 19, Anion Gap 8, Blood Urea Nitrogen 20, Creatinine 1.24, Estimat Glomerular Filtration Rate 59, BUN/Creatinine Ratio 16, Glucose Level 156, Calcium Level 8.6, Corrected Calcium 8.8, Total Bilirubin 0.5, Aspartate Amino Transf (AST/SGOT) 27, Alanine Aminotransferase (ALT/SGPT) 41, Alkaline Phosphatase 77, Troponin I < 0.028, Total Protein 6.3, Albumin 3.7, Triglycerides Level 343, Cholesterol Level 156, LDL Cholesterol Direct 94, VLDL Cholesterol 69, HDL Cholesterol 20 07/14/20 12:05: Glucometer 169 07/14/20 15:50: Glucometer 131 Discharge Home Medications: Active Scripts Active Aspirin EC (Aspirin) 81 Mg Tablet.dr 81 Mg PO DAILY Reported Ambien (Zolpidem Tartrate) 10 Mg Tablet 10 Mg PO HS Quetiapine Fumarate ER (Quetiapine Fumarate) 150 Mg Tab.er.24h 150 Mg PO HS Toujeo Solostar (Insulin Glargine,Hum.rec.anlog) 300 Unit/1 Ml Insuln.pen 100 Unit SQ HS Crestor (Rosuvastatin Calcium) 5 Mg Tablet 5 Mg PO DAILY LAST FILLED 03-14-2020 #30 Benazepril HCl 10 Mg Tablet 10 Mg PO DAILY LAST FILLED 03-14-2020 #90/90 DAY SUPPLY Novolog Flexpen (Insulin Aspart) 300 Units/3 Ml Solution 30 Units SQ AC LAST FILLED 02-17-2020 #5 PENS/17 DAY SUPPLY Duloxetine HCl 60 Mg Capsule.dr 120 Mg PO DAILY TAKES 2 (60MG) CAPS Metformin HCl ER (Metformin HCl) 500 Mg Tab.er.24h 1,000 Mg PO DAILY TAKES 2 (1000MG) TABS Instructions to patient/family Please see electronic discharge instructions given to patient. Clinical Quality Measures DVT/VTE Risk/Contraindication: Risk Factor Score Per Nursin RFS Level Per Nursing on Admit: 2=Moderate TIM BATISTA DO Jul 14, 2020 14:52
[2020-07-14 16:00] VITALS: BP 155/83
== END 2020-07-14 17:15 | disposition home or self-care (01) ==
LOC: 4TH 17:00 → CSD 07-14 15:46
PROVIDERS: ADMIT Internal Medicine; ATTEND Internal Medicine
DX: I25.110 Atherosclerotic heart disease of native coronary artery with unstable angina pectoris (principal); E78.5 Hyperlipidemia, unspecified; E78.00 Pure hypercholesterolemia, unspecified; E11.40 Type 2 diabetes mellitus with diabetic neuropathy, unspecified; F41.9 Anxiety disorder, unspecified; F31.9 Bipolar disorder, unspecified; N40.0 Benign prostatic hyperplasia without lower urinary tract symptoms; E11.22 Type 2 diabetes mellitus with diabetic chronic kidney disease; N18.9 Chronic kidney disease, unspecified; N17.9 Acute kidney failure, unspecified; I11.0 Hypertensive heart disease with heart failure; Z79.82 Long term (current) use of aspirin; Z79.899 Other long term (current) drug therapy; Z79.4 Long term (current) use of insulin; Z82.3 Family history of stroke
CPT/HCPCS: 36221; 71046; 80053 ×2; 80061; 81000; 82962; 84443; 84484 ×2; 85025 ×2; 93005; 93306; 93458; C1769; C1894; 36415; 90686; 99211; G0378

== ENCOUNTER 2021-02-01 12:46 | Outpatient (CLI) | payer BC ==
[~2021-02-01 12:46] MED LIST changes: +ASPI-1238 PO; +QUET150T3 PO; +ZOLP10TA PO
== END 2021-02-01 13:20 | disposition home or self-care (01) ==
LOC: SLEEP 12:46
PROVIDERS: ATTEND Nurse Practitioner
DX: G47.10 Hypersomnia, unspecified (principal); R06.83 Snoring
CPT/HCPCS: G0399

== ENCOUNTER 2023-05-14 05:37 | Outpatient (CLI) | payer MEDICARE ==
[~2023-05-14] VITALS: Ht 180.3 cm; Wt 83.9 kg
[~2023-05-14 05:37] MED LIST changes: +QUET150T14 PO; -QUET150T3 PO
[2023-05-19] MEDS ORDERED: AMLO-250 PO (12:46)
[2023-05-19] MEDS ORDERED: TEST200V21 IM (12:46)
== END 2023-05-19 12:48 | disposition home or self-care (01) ==
LOC: PREOP 05:37
PROVIDERS: ATTEND Surgery
DX: Z01.818 Encounter for other preprocedural examination (principal)

== ENCOUNTER 2023-05-27 07:12 | Day surgery (SDC) | payer BC, MEDICARE ==
[~2023-05-27] VITALS: Ht 180.3 cm; Wt 83.9 kg
[~2023-05-27 07:12] MED LIST changes: +AMLO-250 PO; +TEST200V21 IM
[2023-05-27] MEDS ORDERED: LACTATED RINGERS 1,000 ML IV STA (07:19)
[2023-05-27 07:25] VITALS: BP 183/87
[2023-05-27] MEDS ORDERED: PROPOFOL INJECTION 50 ML IV ONE (08:28)
[2023-05-27] MEDS ORDERED: MIDAZOLAM INJ 2 MG/2 ML VIAL ONE (08:28)
[2023-05-27 08:55] VITALS: BP 137/67
[2023-05-27 09:00] VITALS: BP 136/76
--- NOTE | 2023-05-27 09:01 | Progress Note-Post Operative ---
Post-Operative Progess Note Surgeon (s)/Lead Enterprise Architect (s) Surgeon ROSA KUMAR DO Lead Enterprise Architect: none Pre-Operative Diagnosis bloody stools, history of polyps Post-Operative Diagnosis polyps Procedure & Operative Findings Date of Procedure 05/27/23 Procedure Performed/Findings Colonoscopy with hot biopsy and polypectomy x2 Anesthesia Type per COKE WORKER Estimated Blood Loss Estimated blood loss (mL): none Specimens/Packing Specimens Removed ascending polyp and sigmoid polyp ROSA KUMAR DO May 27, 2023 09:01
--- NOTE | 2023-05-27 09:05 | Discharge Inst-Simple/Standard ---
Discharge Inst-Standard Patient Instructions/Follow Up Plan of Care/Instructions/FU: ken 2 weeks Activity as Tolerated: Yes Discharge Diet: Regular Diet ROSA KUMAR DO May 27, 2023 09:05
[2023-05-27 09:21] VITALS: BP 136/76
[2023-05-27 09:35] VITALS: BP 146/85
--- NOTE | 2023-05-27 11:36 | OPERATIVE REPORT ---
DATE OF SERVICE: 05/27/2023 PREOPERATIVE DIAGNOSIS: History of polyps. POSTOPERATIVE DIAGNOSIS: Colon polyps. PROCEDURE: Colonoscopy with hot biopsy polypectomy x2. SURGEON: Rosa Leary DO ANESTHESIA: Per BAND SAWMILL OPERATOR. ESTIMATED BLOOD LOSS: None. COMPLICATIONS: None. INDICATIONS: The patient is a 67-year-old male with need for a colonoscopy. He understands risks and benefits of procedure and wishes to proceed. Consent was signed in chart. DESCRIPTION OF PROCEDURE: The patient was taken to the endoscopy suite, placed in left lateral recumbent position. Timeout was performed. Digital rectal exam was performed. No palpable polyps, masses or ulcerations. Some skin thickening and irritation were around the perianal area. Scope was inserted in the rectum, advanced all the way to the cecum with minimal difficulty. Prep was adequate. Scope was slowly retracted back. No polyps, masses or ulcerations in the cecum. In the ascending colon, small polyp was present, which hot biopsy polypectomy was performed. Scope was then continuously retracted back. No polyps, masses or ulcerations within the ascending, transverse, or descending colon. Sigmoid colon has small polyp present, which hot biopsy polypectomy was performed. Scope was then continuously retracted back. No polyps, masses or ulcerations in the remainder of the sigmoid and rectum. The scope was retroflexed noting no other pathology. Scope was returned to its normal position, slowly withdrawn until completely removed. The patient tolerated the procedure well without complications, taken to recovery room in stable condition. RECOMMENDATIONS: The patient will follow up the pathology of the two polyps. We would consider biopsy of the skin around the perianal area, which would be done outpatient in the office, Further recommendation pending biopsy results. Job ID: [id number] DocumentID: [id number] Dictated Date: 05/27/2023 08:56:46 Detector Car Operator Date: 05/27/2023 11:34:00 Dictated By: ROSA LEARY DO
--- NOTE | 2023-05-27 12:25 | Anesthesia-General Post-Op ---
MAC Patient Condition Mental Status/LOC: Same as Preop Cardiovascular: Satisfactory Nausea/Vomiting: Absent Respiratory: Satisfactory Pain: Controlled Complications: Absent Post Op Complications Complications None Follow Up Care/Instructions Patient Instructions None needed. Anesthesiology Discharge Order Discharge Order Patient is doing well, no complaints, stable vital signs, no apparent adverse anesthesia problems. No complications reported per nursing. DESIREE RONDON CRNA May 27, 2023 12:25
== END 2023-05-27 09:45 | disposition home or self-care (01) ==
LOC: ENDO 07:12
PROVIDERS: ATTEND Surgery
DX: Z12.11 Encounter for screening for malignant neoplasm of colon (principal); D12.2 Benign neoplasm of ascending colon; D12.5 Benign neoplasm of sigmoid colon
CPT/HCPCS: 82947; 88305